=== PATIENT | female | born 1960 | race Caucasian/White ===

== ENCOUNTER 2020-08-16 13:43 | Outpatient (REF) | payer OTHER, SELFPAY | END 2020-08-16 13:44 | disposition home or self-care (01) | LOC: HO.LAB 13:43 | PROVIDERS: PCP Internal Medicine; Visit Provider Internal Medicine | DX: N83.209 Unspecified ovarian cyst, unspecified side (principal); G43.909 Migraine, unspecified, not intractable, without status migrainosus; G81.91 Hemiplegia, unspecified affecting right dominant side; M81.0 Age-related osteoporosis without current pathological fracture | CPT/HCPCS: 36415; 86304 ==

== ENCOUNTER 2020-09-11 15:03 | Outpatient (REF) | payer OTHER, SELFPAY ==
[2020-09-11 15:23] LABS: COVID-19 Test Negative (Negative)
== END 2020-09-11 15:04 | disposition home or self-care (01) ==
LOC: HO.EMPCOV 15:03
PROVIDERS: PCP Internal Medicine; Visit Provider Internal Medicine
DX: Z20.828 Contact with and (suspected) exposure to other viral communicable diseases (principal)
CPT/HCPCS: 87635; C9803

== ENCOUNTER 2020-09-14 12:49 | Outpatient (REF) | payer OTHER, SELFPAY ==
--- NOTE | 2020-09-14 12:57 | MM_ITS ---
EXAMINATION: BONE DENSITOMETRY CLINICAL INDICATION: Osteoporosis. COMPARISON: Baseline BD dated 10/17/2015. TECHNIQUE: Using a [employer] DXA System (software version: 13.1) manufactured by [employer], dual-energy x-ray absorptiometry was performed of the lumbar spine and left hip. The images are of good technical quality. Summary results are attached. FINDINGS: AP SPINE L1-L4: Current: BMD 0.861 g/cm2, Z-score -1.2, T-score -2.7, osteoporosis, 2.7% decrease from baseline (<5% change is not significant). Baseline: BMD 0.885 g/cm2. LEFT FEMUR, NECK: Current: BMD 0.704 g/cm2, Z-score -1.0, T-score -2.4, osteopenia. Baseline: BMD 0.717 g/cm2. LEFT FEMUR, TOTAL: Current: BMD 0.756 g/cm2, Z-score -0.9, T-score -2.0, osteopenia, 2.5% decrease from baseline (<5% change is not significant). Baseline: BMD 0.775 g/cm2. IDENTIFIED RISK FACTORS: Early menopause, family history (parent hip fracture), hysterectomy, left oophorectomy, secondary osteoporosis. HISTORY OF FRACTURE: None listed. MEDICATIONS: Calcium. MM/XR DEXA axial skeleton IMPRESSION: 1. DIAGNOSIS: Osteoporosis based on the lowest T-score value of -2.7 in the lumbar spine applying World Health Organization criteria. 2. 10-YEAR FRACTURE RISK PREDICTION, FRAX: Major osteoporotic fracture (clinical spine, forearm, hip or shoulder) 10.8%. Hip fracture 1.1%. 3. Treatment Recommendations: NOF guidelines recommend consideration for treatment in postmenopausal women and men age 50 and older presenting with the following: -A hip or vertebral (clinical or morphometric) fracture. -T-score less than or equal to -2.5 at the femoral neck or spine after appropriate evaluation to exclude secondary causes. -Low bone mass at the hip or spine and a 10-year fracture probability by FRAX of greater than or equal to 3% for hip fracture or greater than or equal to 20% for major osteoporotic fracture based on the [place] adapted WHO algorithm. 4. Other Recommendations: All treatment decisions require clinical judgment and consideration of individual patient factors, including patient preferences, comorbidities, previous drug use, risk factors not captured in the FRAX model (e.g. frailty, falls, vitamin D deficiency, increased bone turnover, interval significant decline in bone density) and possible under or overestimation of fracture risk by FRAX. Additional medical evaluation for secondary cause of low bone mineral density may be appropriate. FUTURE SCAN RECOMMENDATION: People with diagnosed cases of osteoporosis or at high risk for fracture should have regular bone mineral density tests. For patients eligible for Medicare, routine testing is allowed once every 2 years. The testing frequency can be increased to one year for patients who have rapidly progressing disease, those who are receiving or discontinuing medical therapy to restore bone mass, or have additional risk factors.
== END 2020-09-14 12:50 | disposition home or self-care (01) ==
LOC: HO.MAMMO 12:49
PROVIDERS: PCP Internal Medicine; Visit Provider Internal Medicine
DX: M81.0 Age-related osteoporosis without current pathological fracture (principal)
CPT/HCPCS: 77080

== ENCOUNTER 2020-09-18 11:12 | Outpatient (REF) | payer OTHER, SELFPAY ==
[2020-09-18 11:26] LABS: COVID-19 Test Negative (Negative)
== END 2020-09-18 11:13 | disposition home or self-care (01) ==
LOC: HO.EMPCOV 11:12
PROVIDERS: Visit Provider Internal Medicine
DX: Z20.828 Contact with and (suspected) exposure to other viral communicable diseases (principal)
CPT/HCPCS: 36415; 87635; C9803

== ENCOUNTER 2020-09-26 06:43 | Outpatient (REF) | payer OTHER, SELFPAY ==
[2020-09-26 07:12] LABS: COVID-19 Test Negative (Negative); IDNOW Serial# 55D5AD1C
== END 2020-09-26 06:44 | disposition home or self-care (01) ==
LOC: HO.EMPCOV 06:43
PROVIDERS: Visit Provider Internal Medicine
DX: Z20.822 Contact with and (suspected) exposure to COVID-19 (principal)
CPT/HCPCS: 36415; 87635; C9803

== ENCOUNTER 2020-09-30 09:45 | Outpatient (REF) | payer OTHER, SELFPAY | END 2020-09-30 09:46 | disposition home or self-care (01) | LOC: HO.LAB 09:45 | PROVIDERS: PCP Internal Medicine; Visit Provider Internal Medicine | DX: Z20.822 Contact with and (suspected) exposure to COVID-19 (principal) | CPT/HCPCS: 36415; C9803; U0003 ==

== ENCOUNTER 2020-11-07 07:33 | Outpatient (REF) | payer OTHER, SELFPAY ==
[2020-11-07 07:53] LABS: COVID-19 Test Negative (Negative)
== END 2020-11-07 07:34 | disposition home or self-care (01) ==
LOC: HO.EMPCOV 07:33
PROVIDERS: Visit Provider Internal Medicine
DX: Z20.822 Contact with and (suspected) exposure to COVID-19 (principal)
CPT/HCPCS: 36415; 87635; C9803

== ENCOUNTER 2020-11-15 08:16 | Outpatient (REF) | payer OTHER, SELFPAY ==
[2020-11-15 08:34] LABS: COVID-19 Test Negative (Negative); IDNOW Serial# 55D5AD1C
== END 2020-11-15 08:17 | disposition home or self-care (01) ==
LOC: HO.EMPCOV 08:16
PROVIDERS: Visit Provider Internal Medicine
DX: Z20.822 Contact with and (suspected) exposure to COVID-19 (principal)
CPT/HCPCS: 36415; 87635; C9803

== ENCOUNTER → 2020-11-21 08:42 | Outpatient (BNVA) | payer OTHER, SELFPAY | PROVIDERS: PCP Internal Medicine; Visit Provider Physician Assistant ==

== ENCOUNTER 2020-11-21 13:16 | Outpatient (REF) | payer OTHER, SELFPAY ==
[2020-11-21 13:34] LABS: COVID-19 Test Negative (Negative)
== END 2020-11-21 13:17 | disposition home or self-care (01) ==
LOC: HO.LAB 13:16
PROVIDERS: Visit Provider Internal Medicine
DX: Z11.52 Encounter for screening for COVID-19 (principal)
CPT/HCPCS: 36415; 87635; C9803

== ENCOUNTER 2021-03-28 12:41 | Outpatient (REF) | payer OTHER, SELFPAY ==
--- NOTE | ~2021-03-28 | US_ITS ---
EXAMINATION: US PELVIS AND TRANSVAGINAL CLINICAL INFORMATION: Persistent ovarian cyst. COMPARISON: Pelvic ultrasound dated 09/22/2018 TECHNIQUE: Transabdominal and transvaginal imaging was obtained. Hysterectomy and oophorectomy. FINDINGS: Status post hysterectomy. Right ovary measuring approximately 5.2 x 2.2 x 2.6 cm for a volume of 15.4 mL. Right adnexal cysts again noted now measuring 4.8 x 2.2 x 2.3 cm (previously 2.8 x 2.0 x 3.2 cm), and 1.5 x 1.2 x 1.5 cm (previously 1.2 x 1.1 x 1.1 cm). Probable ovarian tissue seen on the current examination was not noted on the prior examination. No additional pelvic mass or fluid collection. US/US pelvic and transvaginal IMPRESSION: Right adnexal cysts measuring up to 4.8 and 1.5 cm (previously 3.2 and 1.2 cm). On the current examination, there appears to be right ovarian tissue which was not seen on the prior examination. Status post hysterectomy.
== END 2021-03-28 12:42 | disposition home or self-care (01) ==
LOC: HO.HMGCX 12:41
PROVIDERS: PCP Internal Medicine; Visit Provider Obstetrics & Gynecology Gynecologic Oncology
DX: N83.209 Unspecified ovarian cyst, unspecified side (principal)
CPT/HCPCS: 76830; 76856

== ENCOUNTER 2021-04-03 10:23 | Outpatient (REF) | payer OTHER, SELFPAY ==
--- NOTE | ~2021-04-03 | XR_ITS ---
EXAMINATION: XR LUMBOSACRAL SPINE CLINICAL INFORMATION: Degenerative disc disease. COMPARISON: Lumbar spine MRI dated 11/22/2016. TECHNIQUE: Three views of the lumbosacral spine. FINDINGS: Mild levocurvature of the lumbar spine. The lumbar lordosis is maintained. No acute fracture or subluxation. No loss of vertebral body height. Multilevel loss of intervertebral disc height with anterior endplate osteophytes, progressed when compared to the prior examination. XR/XR lumbar spine 2-3V IMPRESSION: Levocurvature of the lumbar spine. Mild to moderate multilevel degenerative disc disease, progressed when compared to the prior MRI.
== END 2021-04-03 10:24 | disposition home or self-care (01) ==
LOC: HO.XRAY 10:23
PROVIDERS: PCP Internal Medicine; Visit Provider Physical Medicine & Rehabilitation
DX: M51.36 Other intervertebral disc degeneration, lumbar region (principal)
CPT/HCPCS: 72100

== ENCOUNTER 2021-05-22 18:43 | Outpatient (REF) | payer OTHER, SELFPAY ==
--- NOTE | ~2021-05-22 | MR_ITS ---
EXAMINATION: MR LUMBAR SPINE WITHOUT CONTRAST CLINICAL INFORMATION: Evaluate for disc herniation. COMPARISON: Plain films of the lumbar spine 04/03/2021. MRI scan of the lumbar spine 11/22/2016. TECHNIQUE: MRI of the lumbar spine was obtained using routine sequences without contrast. FINDINGS: VERTEBRAL BODIES AND PARASPINAL STRUCTURES: The study redemonstrates a levoscoliosis. There is mild hyperlordosis. There is a mild retrolisthesis of L1-L2. There is narrowing of intervertebral disc height with loss of signal from the discs throughout the lumbar spine, relatively sparing L4-L5. There are multilevel degenerative endplate contour changes. There are fatty endplate signal changes at L5-S1. A minimal amount of edematous endplate signal is seen at T12-L1 and toward the right at L1-L2. Vertebral body heights are maintained. There are no acute fractures. Overall, marrow signal is homogenous. The visualized retroperitoneal and pelvic structures are unremarkable. CONUS MEDULLARIS AND CAUDA EQUINA: Normal, terminating at the level of L1. The lower thoracic spinal cord appears normal. The cauda equina nerve roots and filum terminale appear normal . SPINAL LEVELS: L1-L2: There is mild bilateral facet arthropathy. There is a diffuse disc bulge with a small left-sided disc protrusion. There is no significant mass effect on the thecal sac and there is no central stenosis. The neural foramina are patent. L2-L3: There is mild bilateral facet arthropathy. There is a posterior disc protrusion which is most prominent to the left of midline and there is mild narrowing of the left subarticular recess. On the right, the disc extends into the right neural foramen without definite exiting nerve root impingement. There is no central stenosis. L3-L4: There is mild bilateral facet arthropathy. There is a posterior disc protrusion with minimal flattening of the ventral thecal sac. There is no central stenosis and the neural foramina are patent bilaterally. L4-L5: There is mild to moderate bilateral facet arthropathy. There is a small annular fissure of the disc in the right neural foramen but there is no exiting nerve root impingement. There is no central stenosis. L5-S1: There is mild bilateral facet arthropathy. There is a posterior disc protrusion which extends into the neural foramina bilaterally with impingement on the exiting L5 nerve roots. There is no stenosis. MR/MR lumbar spine wo con IMPRESSION: 1. There is a levoscoliosis, and there is a mild retrolisthesis of L1 on L2. 2. At L5-S1 there is facet arthropathy with a posterior disc protrusion extending into the neural foramina bilaterally with impingement on the exiting L5 nerve roots. There is no central stenosis. 3. At L2-L3. Arthropathy. Posterior disc protrusion, most prominent to the left of midline with mild narrowing of the left subarticular recess. There is no exiting nerve root impingement or central stenosis. 4. Spondylosis and facet arthropathic changes are also demonstrated at other levels as described above.
== END 2021-05-22 18:44 | disposition home or self-care (01) ==
LOC: HO.MRI 18:43
PROVIDERS: PCP Internal Medicine; Visit Provider Physical Medicine & Rehabilitation
DX: M47.816 Spondylosis without myelopathy or radiculopathy, lumbar region (principal)
CPT/HCPCS: 72148

== ENCOUNTER 2021-06-30 09:49 | Outpatient (REF) | payer OTHER, SELFPAY ==
--- NOTE | ~2021-06-30 | MM_ITS ---
EXAMINATION: MM SCREENING DIGITAL BREAST TOMOSYNTHESIS, BILATERAL CLINICAL INFORMATION: Screening. Asymptomatic. The lifetime risk of breast cancer based on the Tyrer-Cuzick Model is 12%. COMPARISON: Mammography: 08/08/2018, outside mammography 05/31/2017, 05/18/2016 ([facility]). TECHNIQUE: Digital breast tomosynthesis is performed in both the craniocaudal and mediolateral oblique views along with computer-aided detection (CAD). Synthesized 2D images are generated from the tomosynthesis. FINDINGS: The breasts are heterogeneously dense, which may obscure small masses (ACR BI-RADS breast composition Category c). There are no significant masses, abnormal calcifications, or other abnormalities. Scattered bilateral asymmetries are stable. There is no developing density or interval architectural abnormality. The axilla and skin contours are unremarkable. No significant changes. MM/MM tomosynthesis screening BI IMPRESSION: No mammographic evidence of malignancy. ASSESSMENT: BI-RADS 2: Benign RECOMMENDATION: Routine annual mammography screening. This patient's information was entered into a reminder system with a target due date for their next mammogram.
== END 2021-06-30 09:50 | disposition home or self-care (01) ==
LOC: HO.MAMMO 09:49
PROVIDERS: PCP Internal Medicine; Visit Provider Internal Medicine
DX: Z12.31 Encounter for screening mammogram for malignant neoplasm of breast (principal)
CPT/HCPCS: 77063; 77067

== ENCOUNTER 2021-09-19 19:28 | Outpatient (REF) | payer OTHER, SELFPAY ==
--- NOTE | ~2021-09-19 | MR_ITS ---
EXAMINATION: MR CERVICAL SPINE WITHOUT CONTRAST CLINICAL INFORMATION: Cervicalgia. COMPARISON: Plain films of the cervical spine 03/01/2016. TECHNIQUE: MRI of the cervical spine was obtained using routine sequences without contrast. FINDINGS: VERTEBRAL BODIES AND PARASPINAL SOFT TISSUES: There is straightening of the normal cervical lordosis. There are sequelae of ACDF procedures at C4-C5 and C5-C6 with hardware; the configuration appears similar compared to prior imaging. There is narrowing of intervertebral disc height at C6-C7, and there are mild edematous endplate signal changes at C6-C7 and C7-T1. Vertebral body heights are maintained and no fractures are demonstrated. Overall, marrow signal is homogenous. The visualized regional soft tissues and upper lung san are unremarkable. CERVICOMEDULLARY JUNCTION AND VISUALIZED POSTERIOR FOSSA: The craniocervical and posterior fossa structures are normal. Accounting for artifact, spinal cord signal appears normal. SPINAL LEVELS: C2-C3: The facet joints appear normal. There is a small soft disc protrusion in the midline posteriorly with distortion of the ventral thecal sac but there is no spinal cord compression or central stenosis. The neural foramina are patent bilaterally. C3-C4: There is moderate left and mild right facet arthropathy. There is a broad-based posterior disc protrusion which effaces CSF ventral to the spinal cord with mild flattening of the cord. There is mild central stenosis. There are uncovertebral osteophytes bilaterally and there is severe bilateral foraminal narrowing. C4-C5: There is mild right facet arthropathy. There is a posterior disc osteophyte complex which distorts the ventral thecal sac as well as the ventral spinal cord. There is moderate central stenosis. There are uncovertebral osteophytes and there is severe bilateral foraminal narrowing. C5-C6: There is mild bilateral facet arthropathy. There is a central and right-sided osteophytic ridge which flattens the ventral thecal sac and spinal cord on the right. There is moderate central stenosis. There are uncovertebral osteophytes, and there is severe right and moderate to severe left foraminal narrowing. C6-C7: The facet joints appear normal. There is a posterior disc osteophyte complex which is more prominent on the left with effacement of CSF around the spinal cord. There is no spinal cord compression. There is mild central stenosis. There are uncovertebral osteophytes and there is severe right and moderate left foraminal narrowing. C7-T1: There is mild bilateral facet arthropathy. There is a posterior and left-sided disc protrusion with minimal effacement of CSF ventral to the spinal cord. There is no spinal cord compression or central stenosis. There are uncovertebral osteophytes and there is severe bilateral foraminal narrowing. MR/MR cervical spine wo con IMPRESSION: 1. There are sequelae of ACDF procedures at C4-C5 and C5-C6. 2. At C4-C5 there is right-sided facet arthropathy. There is a posterior disc protrusion which distorts the spinal cord and there is moderate central stenosis. There is severe bilateral foraminal narrowing. 3. At C5-C6 there is a central and right-sided osteophytic ridge with flattening of the thecal sac and spinal cord. There is moderate central stenosis. There is severe right and moderate to severe left foraminal narrowing. 4. At C3-C4 there is mild activity at the cord due to a posterior disc protrusion. There is mild central stenosis. There is severe bilateral foraminal narrowing. 5. At C6-C7 there are uncovertebral osteophytes and there is severe right and moderate left foraminal narrowing. At C7-T1 there are uncovertebral osteophytes and there is severe bilateral foraminal narrowing.
== END 2021-09-19 19:29 | disposition home or self-care (01) ==
LOC: HO.MRI 19:28
PROVIDERS: Visit Provider Internal Medicine
DX: M54.2 Cervicalgia (principal)
CPT/HCPCS: 72141

== ENCOUNTER 2021-10-26 13:15 | Outpatient (REF) | payer OTHER, SELFPAY ==
[2021-10-26 15:17] LABS: Blood Urea Nitrogen 16 mg/dL (9-16); Estimated Glomerular Filt Rate > 60
== END 2021-10-26 13:16 | disposition home or self-care (01) ==
LOC: HO.LAB 13:15
PROVIDERS: PCP Internal Medicine; Visit Provider Internal Medicine
DX: K21.9 Gastro-esophageal reflux disease without esophagitis (principal)
CPT/HCPCS: 36415; 82565; 84520

== ENCOUNTER 2021-10-31 06:27 | Outpatient (REF) | payer OTHER, SELFPAY ==
--- NOTE | ~2021-10-31 | CT_ITS ---
EXAMINATION: CT ABDOMEN AND PELVIS WITH CONTRAST CLINICAL INFORMATION: Left lower quadrant pain COMPARISON: Previous CT of the abdomen and pelvis August 2018 and pelvic ultrasound March 2021 TECHNIQUE: Multidetector volumetric images were obtained from the superior aspect of the liver through the pubic symphysis following administration 85 mL of Omnipaque 350 intravenous contrast. Sagittal and coronal reformatted images were obtained on the technologist's workstation. Oral contrast: Yes This CT examination was performed using dose optimization techniques as appropriate, variously including the following: *Automated exposure control *Adjustment of mA and/or kV according to patient size (this includes techniques or standardized protocols for targeted exams where dose is matched to indication/reason for exam; i.e. extremities or head) *Use of iterative reconstruction technique DLP: 327 mGy-cm FINDINGS: LUNG BASES: There is focal bronchiectasis and atelectasis/consolidation in the right middle lobe. This is similar to August 2018 exam. The lung bases are otherwise clear. LIVER, GALLBLADDER, AND BILIARY TREE: The liver is normal in size, shape, and attenuation. No focal hepatic lesion or biliary ductal dilatation is present. The gallbladder is contracted. PANCREAS: Unremarkable. SPLEEN: Unremarkable. ADRENAL GLANDS: Unremarkable. KIDNEYS AND URETERS: The kidneys are normal in size, shape, and attenuation. No hydronephrosis, hydroureter, or calculi seen. There are small low-attenuation left renal lesions probably representing cysts. No imaging follow-up needed. BLADDER: There is a borderline cystocele. The bladder is otherwise unremarkable. GASTROINTESTINAL TRACT: There is stool throughout the colon questionable for constipation. No evidence of diverticulitis or colitis is seen. There is focal dilatation of the second portion of the duodenum no definite mass or wall thickening is seen. The small and large bowel is otherwise unremarkable. The appendix is not seen. ABDOMINAL WALL: No significant hernia is appreciated. LYMPH NODES: Normal. VASCULAR: Unremarkable. PELVIC VISCERA: The uterus appears to have been removed. No pelvic mass. OSSEOUS STRUCTURES: There are degenerative changes of the spine and hip joints. CT/CT abdomen pelvis w con IMPRESSION: Stool throughout the colon questionable for constipation. Short segment dilatation of the second portion of the duodenum. No bowel wall thickening or mass is appreciated. Follow-up upper GI could be considered. Small left renal cyst. Borderline cystocele. Fleischner guidelines were followed.
[2021-10-31] MEDS: Barium Sulfate Oral (Mocha) 450 ML ORAL.SUSP PO (08:53)
[2021-10-31] MEDS: iohexoL 350 MG/ML 100 ML INFUS..BTL IV (08:53)
[2021-10-31] MEDS: Barium Sulfate Oral (Vanilla) 450 ML ORAL.SUSP PO (08:57)
== END 2021-10-31 06:28 | disposition home or self-care (01) ==
LOC: HO.CT 06:27
PROVIDERS: Visit Provider Internal Medicine
DX: R10.32 Left lower quadrant pain (principal)
CPT/HCPCS: 74177; Q9967

== ENCOUNTER 2021-12-06 09:04 | Outpatient (REF) | payer OTHER, SELFPAY ==
--- NOTE | ~2021-12-06 | FL_ITS ---
EXAMINATION: XR FLUOROSCOPY UPPER GI WITH AIR CLINICAL INFORMATION: Gastroesophageal reflux disease without esophagitis. COMPARISON: None TECHNIQUE: Routine upper GI air-contrast study was performed in upright and lying position. FINDINGS: There is C6-C7 and C5-C6 disc fusion. Following oral administration of thick barium and effervescent granules there is normal propagation of bolus from the oral cavity through the pharynx, esophagus into stomach without any evidence of obstruction, narrowing or stricture. A prominent cricoesophageal sphincter seen on the right oblique position. On placing patient supine and prone the course, caliber and peristalsis of the stomach and the duodenum is normal. There is mild gastroesophageal reflux with a small sliding hiatal hernia. There is moderate prominence of the duodenal loops especially the second and third segments with inconsistent indentation of the third segment of duodenum. This could be secondary to a tortuous splenic vein anteriorly and abdominal aorta posteriorly compressing the third segment of the duodenum as is noted on the CT abdomen and pelvic exam 10/31/2021. FLUOROSCOPY TIME: 3.3 minutes. DOSE AREA PRODUCT: 25.722 uGy-m2 (microgray-meter squared). FL/FL upper GI w air IMPRESSION: Transient inconsistent narrowing seen of third segment of duodenum. This is most likely due to a tortuous splenic vein anteriorly and a normal abdominal aorta posteriorly sandwiching the third segment of the duodenum. This is best visualized CT abdomen/pelvis exam 10/31/2021. Rest of the upper GI exam is unremarkable.
== END 2021-12-06 09:05 | disposition home or self-care (01) ==
LOC: HO.XRAY 09:04
PROVIDERS: Visit Provider Internal Medicine
DX: K21.9 Gastro-esophageal reflux disease without esophagitis (principal)
CPT/HCPCS: 74246

== ENCOUNTER 2022-03-06 15:52 | Outpatient (REF) | payer OTHER, SELFPAY ==
--- NOTE | ~2022-03-06 | XR_ITS ---
EXAMINATION: XR CERVICAL SPINE CLINICAL INFORMATION: Cervicalgia COMPARISON: MRI cervical spine from 09/19/2021 TECHNIQUE: 4 views of the cervical spine were obtained. FINDINGS: Status post anterior cervical fusion of C4-C5 and C5-C6. Spinal hardware is grossly intact. No acute visible fracture or dislocation. Straightening normal cervical curvature which may be secondary to patient positioning versus muscle spasm. Multilevel degenerative changes disc space narrowing, SPECT imaging and facet arthropathy. Visualized dens is intact. Lateral masses are symmetric. Vertebral body heights and disc spaces are maintained. Prevertebral soft tissues are unremarkable. Posterior elements are intact. Paraspinal soft tissues are unremarkable. Visualized portions of the upper chest are unremarkable. XR/XR cervical spine 3V IMPRESSION: 1. Status post anterior cervical fusion of C4-C5 and C5-C6. Spinal hardware is grossly intact. 2. No acute visible fracture or dislocation. 3. Straightening normal cervical curvature which may be secondary to patient positioning versus muscle spasm. 4. Multilevel degenerative changes.
--- NOTE | ~2022-03-06 | XR_ITS ---
EXAMINATION: XR CHEST CLINICAL INFORMATION: Chronic cough COMPARISON: None TECHNIQUE: 2 views of the chest were obtained. FINDINGS: No focal consolidation. No pneumothorax. Trachea is midline. Cardiomediastinal silhouette is not enlarged. No large pleural effusion. Degenerative changes of the thoracolumbar spine. Soft tissues are unremarkable. XR/XR chest 2V IMPRESSION: No acute cardiopulmonary process.
[2022-03-06 17:26] LABS: Vitamin D 25-OH Total 35.4 ng/mL (>30)
[2022-03-06 17:33] LABS: Alanine Aminotransferase 16 U/L (0-31); Albumin Level 4.2 g/dL (3.5-5.0); Alkaline Phosphatase 75 U/L (39-117); Anion Gap 12 (12-20); Aspartate Amino Transferase 16 U/L (5-31); Bilirubin Total 0.3 mg/dL (0.0-1.0); Blood Urea Nitrogen 14 mg/dL (9-16); Carbon Dioxide 29 mmol/L (22-29); Chloride 105 mmol/L (96-108); Cholesterol 244 mg/dL; Estimated Glomerular Filt Rate > 60; Glucose Fasting 95 mg/dL (60-99); HDL Cholesterol 45 mg/dL; LDL Cholesterol Calculated 150 mg/dl; Potassium 4.1 mmol/L (3.3-5.1); Sodium 142 mmol/L (135-145); Total Protein 7.2 g/dL (6.5-8.0); Triglycerides 245 mg/dL
== END 2022-03-06 15:53 | disposition home or self-care (01) ==
LOC: HO.LAB 15:52
PROVIDERS: Visit Provider Internal Medicine
DX: Z00.00 Encounter for general adult medical examination without abnormal findings (principal); M54.2 Cervicalgia; E55.9 Vitamin D deficiency, unspecified; R05.3 Chronic cough
CPT/HCPCS: 36415; 71046; 72040; 80053; 80061; 82306

== ENCOUNTER → 2022-07-04 13:19 | Outpatient (RCR) | payer OTHER, SELFPAY ==
[2020-11-28 08:44] LABS: COVID-19 Test Negative (Negative); IDNOW Serial# 55D5AD1C
[2020-12-04 15:23] LABS: COVID-19 Test Negative (Negative); IDNOW Serial# 55D5AD1C
[2020-12-14 14:44] LABS: COVID-19 Test Negative (Negative)
[2020-12-20 09:43] LABS: COVID-19 Test Negative (Negative)
[2020-12-26 14:53] LABS: COVID-19 Test Negative (Negative)
[2021-01-01 11:15] LABS: COVID-19 Test Negative (Negative)
[2021-01-08 14:04] LABS: COVID-19 Test Negative (Negative); IDNOW Serial# 55D5AD1C
[2021-01-16 15:24] LABS: COVID-19 Test Negative (Negative)
[2021-01-22 15:05] LABS: COVID-19 Test Negative (Negative)
[2021-01-29 14:06] LABS: COVID-19 Test Negative (Negative); IDNOW Serial# 55D5AD1C
== END | disposition home or self-care (01) ==
LOC: HO.EMPCOV 11-28 08:24
PROVIDERS: Visit Provider Internal Medicine
DX: Z20.828 Contact with and (suspected) exposure to other viral communicable diseases (principal)
CPT/HCPCS: 36415; 87635; C9803

== ENCOUNTER 2022-07-13 08:33 | Outpatient (REF) | payer OTHER, SELFPAY ==
--- NOTE | ~2022-07-13 | MM_ITS ---
EXAMINATION: MM SCREENING DIGITAL BREAST TOMOSYNTHESIS, BILATERAL CLINICAL INFORMATION: Screening. Asymptomatic. Family history breast cancer, sister. The lifetime risk of breast cancer based on the Tyrer-Cuzick Model is 12%. COMPARISON: Mammography: 06/30/2021, 08/08/2018, 05/31/2017 TECHNIQUE: Digital breast tomosynthesis is performed in both the craniocaudal and mediolateral oblique views along with computer-aided detection (CAD). Synthesized 2D images are generated from the tomosynthesis. FINDINGS: The breasts are heterogeneously dense, which may obscure small masses (ACR BI-RADS breast composition Category c). Findings fibronodular parenchymal pattern and minor asymmetries are stable from prior studies. There is chronic smooth nodularity anterior upper outer right breast. No developing density or interval architectural abnormality. No abnormal calcifications. The axilla and skin contours are unremarkable. No significant changes. MM/MM tomosynthesis screening BI IMPRESSION: No mammographic evidence of malignancy. ASSESSMENT: BI-RADS 2: Benign RECOMMENDATION: Routine annual mammography screening. This patient's information was entered into a reminder system with a target due date for their next mammogram.
== END 2022-07-13 08:34 | disposition home or self-care (01) ==
LOC: HO.MAMMO 08:33
PROVIDERS: Visit Provider Internal Medicine
DX: Z12.31 Encounter for screening mammogram for malignant neoplasm of breast (principal)
CPT/HCPCS: 77063; 77067

== ENCOUNTER 2022-09-26 07:16 | Outpatient (REF) | payer OTHER, SELFPAY ==
[2022-09-26 08:37] LABS: Cholesterol 216 mg/dL; HDL Cholesterol 48 mg/dL; LDL Cholesterol Calculated 136 mg/dl; Triglycerides 160 mg/dL
[2022-09-26 08:57] LABS: Vitamin D 25-OH Total 30.7 ng/mL (>30)
== END 2022-09-26 07:17 | disposition home or self-care (01) ==
LOC: HO.LAB 07:16
PROVIDERS: PCP Internal Medicine; Visit Provider Internal Medicine
DX: E78.5 Hyperlipidemia, unspecified (principal); E55.9 Vitamin D deficiency, unspecified
CPT/HCPCS: 36415; 80061; 82306

== ENCOUNTER 2023-03-27 09:09 | Outpatient (AMB) | payer OTHER, SELFPAY ==
--- NOTE | 2023-03-27 09:13 | MHC.PC.OV ---
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 Accompanied by: Self / Same As Patient Allergies peanut [PEANUT] Allergy (Severe, Verified 03/27/23 09:25) RASH amitriptyline [AMITRIPTYLINE] Allergy (Unknown, Verified 03/27/23 09:25) TACHYCARDIA, palpitations, palpitations meperidine [From DEMEROL] Allergy (Unknown, Verified 03/27/23 09:25) FAINTS Penicillins [PENICILLINS] Allergy (Unknown, Verified 03/27/23 09:25) UNK Medication List - Last Reconciled 03/27/23 by Deborah Mclain MD cholecalciferol (vitamin D3) 50 mcg PO DAILY ibuprofen 800 mg PO TID meclizine 25 mg PO DAILY PRN 30 days omeprazole 20 mg PO DAILY sumatriptan succinate 50 mg PO Q2-4H PRN 30 days tramadol 50 mg PO BID PRN 30 days Tobacco use date assessed: 09/25/22 Dental Screening Dental Screen Date: 03/27/23 Did you have a dental visit in the last 12 months?: No Did you have a dental problem in the last 6 months where you did not have access to dental care?: No Was dental information given to patient?: Patient has dentist HPI HPI Comments History of Present Illness Details This is a 62-year-old female that comes for her physical exam. Last mammogram was June 2022 and was normal. No need for Pap smears due to hysterectomy for benign reasons. Last colonoscopy was 2017. Complains of abdominal pain associated with food. Also has low back pain that makes her not able to work. No chest pain or shortness of breath. Last bone density was 2019 and this will be repeated. [facility] Medical History Back pain Chronic constipation GERD (gastroesophageal reflux disease) Left flank pain Left lower quadrant abdominal pain Migraines Neck pain Osteoarthritis Osteoporosis Rectal bleeding Stenosis of cervical spine region Vertigo Surgical History History of appendectomy History of tubal ligation Hx of colonoscopy Hx of discectomy Hx of esophagogastroduodenoscopy S/P TAQUERIA-BSO Family History Father Diabetes CVD (cardiovascular disease) Stroke Mother CVD (cardiovascular disease) Hypertension Cervical cancer Lung cancer Maternal Aunt Cancer Maternal Uncle Cancer Sister Breast cancer Social History Household Members: Spouse Housing: House Are you a primary youth care specialist to a significant other at home: No Do you presently have visiting nurse or other home services: No Alcohol intake: never Patient Tobacco Use Status: Never used Tobacco e-Cigarette/Vaping Use: Never Used Second Hand Smoke Exposure: Yes service: No Current occupational status: unemployed Current occupation: Phelebotomist Cognitive needs: No Hearing needs: No Vision needs: Yes Questionnaire Thrive Questionnaire Date Thrive assessed: 09/25/22 DIMITRY-7 AMB Questionnaire DIMITRY-7 Date DIMITRY - 7 assessed: 09/25/22 Source: Developed by Drs. Anton Ivy, Hodan Elizalde, Enrico Souza and colleagues, with an educational renae from [id number]. Review of Systems Const All systems reviewed & are unremarkable except as noted in HPI and below Eyes Reports no additional complaints, Denies change in vision and Denies other visual disturbances Card Denies chest pain at rest, Denies chest pain with activity, Denies edema, Denies irregular heart rhythm, Denies claudication, Denies dyspnea, Denies dyspnea on exertion, Denies orthopnea, Denies paroxysmal nocturnal dyspnea and Denies slow heart rate Resp Denies cough, Denies dyspnea and Denies dyspnea on exertion GI Denies abdominal pain, Denies change in bowel habits, Denies excessive flatus, Denies nausea and Denies vomiting Denies urinary incontinence, Denies urinary hesitancy and Denies urinary urgency Musc Denies abnormal gait, Denies atrophy, Denies deformity and Denies limited range of motion Skin/Breast Denies bleeding lesions, Denies changing lesions and Denies rash Neuro Denies abnormal gait and Denies lack of coordination Physical exam (Primary Care) Vital Signs: Last Vital Signs BP 118/76 03/27/23 09:14 BMI result Body Mass Index 20.8 Tobacco/Smoking Status: Tobacco use Status Tobacco use date assessed 09/25/22 03/27/23 09:18 Patient Tobacco Use Status Never used Tobacco 03/27/23 09:18 e-Cigarette/Vaping Use Never Used 03/27/23 09:18 Thrive Assessment: Date of Thrive Assessment Date Thrive assessed 09/25/22 03/27/23 09:18 Const Orientation/consciousness: patient oriented x3 HENMT Head: Yes normal to inspection, Yes normocephalic and Yes atraumatic Ears: external ears normal Eyes General: appearance normal, both eyes and all related structures Eyelids: Yes eyelids normal Conjunctivae: conjunctivae normal Neck Neck: Yes normal visual inspection and Yes supple Resp Effort & Inspection: normal respiratory effort Auscultation: clear to auscultation bilaterally Cardio Jugular venous distension: no JVD Rate: regular rate Rhythm: regular rhythm Heart sounds: S1 normal heart sound present and S2 normal heart sound present GI Inspection: Yes normal to inspection Palpation (GI): Soft to palpation and nontender Auscultation: normal bowel sounds Skin General skin exam: no rashes or lesions noted Neuro General: patient oriented x3 and no focal motor deficits Extrem General: Yes full ROM Psych Appearance: grossly normal Assessment and Plan Assessment & Plan (1) Physical exam: Code(s): Z00.00 - Encounter for general adult medical examination without abnormal findings Plan: Repeat in a year. Orders: Orders Comprehensive Homer. Panel Fast Today M54.2 - Cervicalgia Lipid Panel Today E78.5 - Hyperlipidemia, unspecified Vitamin D 25-OH Total Today E55.9 - Vitamin D deficiency, unspecified XR DEXA axial skeleton Today N95.9 - Unspecified menopausal and perimenopausal disorder Referrals Gastroenterology Referral R10.9 - Unspecified abdominal pain Coding Level of Care Code Est Pt Prev Care 40-64y(86122) Diagnoses Physical exam Z00.00 Time Spent (min) 31
[2023-03-27 09:14] VITALS: BP 118/76; BMI 20.8
== END 2023-03-27 09:38 | disposition home or self-care (01) ==
PROVIDERS: PCP Internal Medicine; Visit Provider Internal Medicine
DX: Z00.00 Encounter for general adult medical examination without abnormal findings (principal)
CPT/HCPCS: 99396

== ENCOUNTER 2023-03-27 09:44 | Outpatient (REF) | payer OTHER, SELFPAY ==
[2023-03-27 12:26] LABS: Alanine Aminotransferase 13 U/L (0-31); Albumin Level 4.2 g/dL (3.5-5.0); Alkaline Phosphatase 109 U/L (39-117); Anion Gap 12 (12-20); Aspartate Amino Transferase 17 U/L (5-31); Bilirubin Total 0.8 mg/dL (0.0-1.0); Blood Urea Nitrogen 13 mg/dL (9-16); Calcium 9.9 mg/dL (8.4-10.2); Carbon Dioxide 29 mmol/L (22-29); Chloride 106 mmol/L (96-108); Cholesterol 193 mg/dL; Estimated Glomerular Filt Rate > 60; Glucose Fasting 88 mg/dL (60-99); HDL Cholesterol 49 mg/dL; LDL Cholesterol Calculated 120 mg/dl; Potassium 4.1 mmol/L (3.3-5.1); Sodium 143 mmol/L (135-145); Total Protein 7.1 g/dL (6.5-8.0); Triglycerides 124 mg/dL
[2023-03-27 12:41] LABS: Vitamin D 25-OH Total 38.2 ng/mL (>30)
== END 2023-03-27 09:45 | disposition home or self-care (01) ==
LOC: HO.LAB 09:44
PROVIDERS: PCP Internal Medicine; Visit Provider Internal Medicine
DX: M54.2 Cervicalgia (principal); E78.5 Hyperlipidemia, unspecified; E55.9 Vitamin D deficiency, unspecified
CPT/HCPCS: 36415; 80053; 80061; 82306

== ENCOUNTER 2023-04-22 09:24 | Outpatient (REF) | payer OTHER, SELFPAY ==
--- NOTE | ~2023-04-22 | MM_ITS ---
EXAMINATION: BONE DENSITOMETRY CLINICAL INDICATION: Unspecified menopausal and perimenopausal disorder. COMPARISON: Previous BD dated 09/14/2020 and baseline BD dated 10/17/2015. TECHNIQUE: Using a Gastrofy DXA System (software version: 13.1) manufactured by [employer], dual-energy x-ray absorptiometry was performed of the lumbar spine and left hip. The images are of good technical quality. Summary results are attached. FINDINGS: LEFT FEMUR, NECK: Current: BMD 0.671 g/cm2, Z-score -1.1, T-score -2.6, osteoporosis. Prior: BMD 0.704 g/cm2. Baseline: BMD 0.717 g/cm2. LEFT FEMUR, TOTAL: Current: BMD 0.706 g/cm2, Z-score -1.1, T-score -2.4, osteopenia, 6.6% decrease from previous, 8.9% decrease from baseline (<5% change is not significant). Prior: BMD 0.756 g/cm2. Baseline: BMD 0.775 g/cm2. AP SPINE L1-L4: Current: BMD 0.942 g/cm2, Z-score -0.2, T-score -2.0, osteopenia, 9.4% increase from previous, 6.4% increase from baseline (<5% change is not significant). Prior: BMD 0.861 g/cm2. Baseline: BMD 0.885 g/cm2. IDENTIFIED RISK FACTORS: Early menopause, secondary osteoporosis, hysterectomy, bilateral oophorectomy, family history (parental hip fracture), osteoporosis. HISTORY OF FRACTURE: None listed. MEDICATIONS: Multivitamin. MM/XR DEXA axial skeleton IMPRESSION: 1. DIAGNOSIS: Osteoporosis based on the lowest T-score value of -2.6 in the femoral neck applying World Health Organization criteria. 2. 10-YEAR FRACTURE RISK PREDICTION, FRAX: According to the guidelines, FRAX calculation should only be performed on patients in the osteopenia bone density category. Therefore, FRAX was not performed on this patient. 3. Treatment Recommendations: NOF guidelines recommend consideration for treatment in postmenopausal women and men age 50 and older presenting with the following: -A hip or vertebral (clinical or morphometric) fracture. -T-score less than or equal to -2.5 at the femoral neck or spine after appropriate evaluation to exclude secondary causes. -Low bone mass at the hip or spine and a 10-year fracture probability by FRAX of greater than or equal to 3% for hip fracture or greater than or equal to 20% for major osteoporotic fracture based on the [place] adapted WHO algorithm. 4. Other Recommendations: All treatment decisions require clinical judgment and consideration of individual patient factors, including patient preferences, comorbidities, previous drug use, risk factors not captured in the FRAX model (e.g. frailty, falls, vitamin D deficiency, increased bone turnover, interval significant decline in bone density) and possible under or overestimation of fracture risk by FRAX. Additional medical evaluation for secondary cause of low bone mineral density may be appropriate. FUTURE SCAN RECOMMENDATION: People with diagnosed cases of osteoporosis or at high risk for fracture should have regular bone mineral density tests. For patients eligible for Medicare, routine testing is allowed once every 2 years. The testing frequency can be increased to one year for patients who have rapidly progressing disease, those who are receiving or discontinuing medical therapy to restore bone mass, or have additional risk factors.
== END 2023-04-22 09:25 | disposition home or self-care (01) ==
LOC: HO.MAMMO 09:24
PROVIDERS: Visit Provider Internal Medicine
DX: Z13.820 Encounter for screening for osteoporosis (principal); Z78.0 Asymptomatic menopausal state
CPT/HCPCS: 77080

== ENCOUNTER → 2023-04-22 09:45 | Outpatient (BNV) | payer OTHER, SELFPAY | PROVIDERS: Visit Provider Radiology Diagnostic Radiology | DX: M85.89 Other specified disorders of bone density and structure, multiple sites (principal) | CPT/HCPCS: 77080 ==

== ENCOUNTER 2023-05-24 12:40 | Outpatient (REF) | payer OTHER, SELFPAY ==
--- NOTE | ~2023-05-24 | MR_ITS ---
EXAMINATION: MR LUMBAR SPINE WITHOUT CONTRAST CLINICAL INFORMATION: Evaluate for worsening stenosis. Nerve root impingement. Bilateral lower extremity radiculopathy and chronic low back pain. COMPARISON: MRI dated 05/22/2021. TECHNIQUE: Multiplanar, multisequence imaging was obtained. FINDINGS: VERTEBRAL BODIES AND PARASPINAL STRUCTURES: The marrow signal is within normal limits. There are no compression fractures. Stable mild leftward lumbar spinal curvature noted. Mild posterior subluxations with disc bulges and anterior endplate spurring are stable at the T12-L1 and L1-L2 levels. Ylqvaree-wz-orriqz loss of disc height with endplate spurring is fairly similar compared to the prior study at the L5-S1 level. The paraspinal soft tissues are normal. There are cxdw-ee-umlqhfse degenerative changes of the sacroiliac joints. CONUS MEDULLARIS AND CAUDA EQUINE: The distal cord, conus tip, and cauda equina nerve roots are normal. SPINAL LEVELS: L1-L2: Retrosubluxation and disc bulge again evident with mild facet arthropathy. No central canal stenosis. Moderate right foraminal narrowing is slightly worsened. L2-L3: Posterior disc bulge and mild facet arthropathy again evident. No central canal stenosis. Mild right foraminal narrowing without change. L3-L4: Disc bulge and hypertrophic facet arthropathy without central canal stenosis or foraminal narrowing. L4-L5: Moderate facet arthropathy is stable. No disc pathology. No central canal stenosis. Mild left foraminal narrowing with facet spurring mildly impressing upon the exiting left L4 nerve root. L5-S1: Generalized disc bulge and endplate spurring. No central canal stenosis. Osseous spurring mildly impresses upon the exiting extraforaminal L5 nerve roots laterally, as on prior imaging. Idtr-ke-zdsuvwci bilateral foraminal narrowing, more so on the right side is stable. MR/MR lumbar spine wo con IMPRESSION: Slightly worsened moderate right foraminal narrowing at the L1-L2 level. Otherwise, relatively stable multilevel lumbar spondylosis. Osseous spurring mildly impressing upon the exiting left L4 nerve root at the L4-L5 level and the L5 nerve roots at the L5-S1 level.
== END 2023-05-24 12:41 | disposition home or self-care (01) ==
LOC: HO.MRI 12:40
PROVIDERS: Visit Provider Physical Medicine & Rehabilitation
DX: M48.061 Spinal stenosis, lumbar region without neurogenic claudication (principal)
CPT/HCPCS: 72148

== ENCOUNTER 2023-07-21 09:30 | Outpatient (REF) | payer OTHER, SELFPAY | END 2023-07-21 09:31 | disposition home or self-care (01) | LOC: HO.MAMMO 09:30 | PROVIDERS: Visit Provider Internal Medicine | DX: Z12.31 Encounter for screening mammogram for malignant neoplasm of breast (principal) | CPT/HCPCS: 77063; 77067 ==

== ENCOUNTER → 2023-07-21 10:00 | Outpatient (BNV) | payer OTHER, SELFPAY | PROVIDERS: Visit Provider Radiology Diagnostic Radiology | DX: Z12.31 Encounter for screening mammogram for malignant neoplasm of breast (principal) | CPT/HCPCS: 77063; 77067 ==

== ENCOUNTER 2023-07-24 13:33 | Outpatient (AMB) | payer OTHER, SELFPAY ==
--- NOTE | 2023-07-24 13:38 | MHC.OFFVIS ---
Intake Vital Signs 07/24/23 13:39 Height 5 ft 2 in Weight 116 lb BMI 21.2 BP 108/66 Blood Pressure Location Rt brachial Position Sitting Pulse 101 H Intake Visit Reasons: Hemorrhoids Intake Note: This patient presents for an assessment for hemorrhoids. Patient c/o; reports rectal bleeding, reports constipation. 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 Accompanied by: Self / Same As Patient Allergies peanut [PEANUT] Allergy (Severe, Verified 03/27/23 09:25) RASH amitriptyline [AMITRIPTYLINE] Allergy (Unknown, Verified 03/27/23 09:25) TACHYCARDIA, palpitations, palpitations meperidine [From DEMEROL] Allergy (Unknown, Verified 03/27/23 09:25) FAINTS Penicillins [PENICILLINS] Allergy (Unknown, Verified 03/27/23 09:25) UNK Medication List - Last Reconciled 07/24/23 by Dony Montenegro MD cholecalciferol (vitamin D3) 50 mcg PO DAILY ibuprofen 800 mg PO TID ibuprofen-acetaminophen 125-250 mg (Advil Dual Action) 1 tab PO Q8H PRN meclizine 25 mg PO DAILY PRN 30 days omeprazole 20 mg PO DAILY sumatriptan succinate 50 mg PO Q2-4H PRN 30 days tramadol 50 mg PO BID PRN 30 days HPI Hemorrhoids HPI Details 63-year-old female referred for hemorrhoids. She says that for the past 2-3 months she would notice periodic bleeding and some swelling of her hemorrhoids. This would occasional prolapse with bowel movements although this is not frequent . She says these episodes are not that frequent. She denies being constipated. She has never had any anal surgery before. She was concerned about a neoplastic process in the anus so she wanted to be checked. She says that she is up-to-date with her colonoscopies. [facility] Medical History (Updated 07/24/23 @ 14:08 by Dony Montenegro MD) Bleeding hemorrhoids Stenosis of cervical spine region Left lower quadrant abdominal pain Left flank pain Neck pain GERD (gastroesophageal reflux disease) Osteoarthritis Rectal bleeding Chronic constipation Back pain Osteoporosis Vertigo Migraines Surgical History Hx of esophagogastroduodenoscopy Hx of colonoscopy Hx of discectomy S/P TAQUERIA-BSO History of tubal ligation History of appendectomy Family History Father Diabetes CVD (cardiovascular disease) Stroke Mother CVD (cardiovascular disease) Hypertension Cervical cancer Lung cancer Maternal Aunt Cancer Maternal Uncle Cancer Sister Breast cancer Social History Household Members: Spouse Housing: House Are you a primary home care giver to a significant other at home: No Do you presently have visiting nurse or other home services: No Alcohol intake: never Patient Tobacco Use Status: Never used Tobacco e-Cigarette/Vaping Use: Never Used Second Hand Smoke Exposure: Yes service: No Current occupational status: unemployed Current occupation: Phelebotomist Cognitive needs: No Hearing needs: No Vision needs: Yes Review of Systems Const Denies chills and Denies fever(s) Card Denies chest pain, Denies dyspnea and Denies dyspnea on exertion Resp Denies cough, Denies dyspnea and Denies dyspnea on exertion GI Reports hematochezia and Denies change in bowel habits Denies hematuria Musc Denies back pain and Denies limited range of motion Neuro Denies focal weakness and Denies convulsions Psych Denies depression and Denies mood swings Physical Exam Vital Signs: Last Vital Signs Pulse 101 H 07/24/23 13:39 BP 108/66 07/24/23 13:39 BMI result Body Mass Index 21.2 Const General: comfortable and no acute distress Orientation/consciousness: patient oriented x3 Neck Neck: Yes no lymphadenopathy Resp Auscultation: clear to auscultation bilaterally Cardio Rhythm: regular rhythm GI Other: Small external hemorrhoids on rectal exam; anoscopy as described Palpation (GI): Soft to palpation, nontender and no guarding Neuro General: patient oriented x3 Office Procedures Anoscopy She was in barb-knife position. The anoscope was gently inserted. A full examination of the anal canal was done. He did have small internal external hemorrhoid columns. There were no lesions. There was no abnormal mucosa. There was no fissure, ulcer or any induration. There was no palpable mass. She has good sphincter tone. There was no bleeding. [id number] Assessment & Plan Assessment & Plan (1) Bleeding hemorrhoids: Code(s): K64.9 - Unspecified hemorrhoids Plan: She has non bulky hemorrhoidal columns, internal external. She was concerned about a neoplastic process because of her bleeding periodically. Examination including anoscopy does not reveal any suggestion of any tumor or mass. She does have small internal external hemorrhoids and this can bleed periodically. She had does understand the option of hemorrhoidectomy but she says that she does not want to proceed at this time. She will follow-up in the office down the line if he has any further concerns with regards to her hemorrhoids. Coding Level of Care Code New Pt Level 3 (45969) Diagnoses Bleeding hemorrhoids K64.9 CPT Codes Details - CPT: [id number] ([id number])
[2023-07-24 13:39] VITALS: BP 108/66; PULSE 101; BMI 21.2
== END 2023-07-24 14:09 | disposition home or self-care (01) ==
PROVIDERS: PCP Internal Medicine; Visit Provider Surgery
DX: K64.9 Unspecified hemorrhoids (principal)
CPT/HCPCS: 46600; 99203

== ENCOUNTER → 2023-07-24 13:33 | Outpatient (BNVA) | payer OTHER, SELFPAY | PROVIDERS: PCP Internal Medicine; Visit Provider Surgery | DX: K64.9 Unspecified hemorrhoids (principal) | CPT/HCPCS: 46600; 99202 ==

== ENCOUNTER 2023-08-02 07:49 | Outpatient (REF) | payer OTHER, SELFPAY ==
[2023-08-05 11:29] LABS: Endomysial IgA Antibody Negative (Negative)
[2023-08-06 22:28] LABS: Gliadin Deamidated IgA Ab 2.2 U/mL; Gliadin Deamidated IgG Ab <1.0 U/mL
[2023-08-08 07:33] LABS: Transglutaminase IgA <1.0 U/mL
== END 2023-08-02 07:50 | disposition home or self-care (01) ==
LOC: HO.LAB 07:49
PROVIDERS: Internal Medicine Gastroenterology; PCP Internal Medicine; Visit Provider Internal Medicine Gastroenterology
DX: R10.9 Unspecified abdominal pain (principal); R63.4 Abnormal weight loss; R19.7 Diarrhea, unspecified
CPT/HCPCS: 36415; 86231; 86258; 86364

== ENCOUNTER 2023-08-15 08:28 | Outpatient (AMB) | payer OTHER, SELFPAY ==
--- NOTE | 2023-08-15 08:30 | A.OFFVIS_ITS ---
Intake Vital Signs 08/15/23 08:38 Height 5 ft 1.65 in Weight 115 lb 4.828 oz BMI 21.3 BP 116/72 Blood Pressure Location Rt brachial Position Sitting Pulse 84 Pulse Source Pulse Oximeter Temp 96.8 F Temp Source Skin Pulse Oximetry (%) 98 Oxygen Delivery Method Room Air Intake Visit Reasons: Osteoporosis Intake Note: New pt presents today for consult to discuss osteoporosis and back pain. Referred by PCP Dr Vaca. Back pain started many years ago. Has tried PT and cortisone injections. Follow ing with [facility], last injection approx 2 years ago. Recently saw [facility], injections were recommended again but she declined. 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 Accompanied by: Self / Same As Patient Allergies peanut [PEANUT] Allergy (Severe, Verified 08/15/23 08:41) RASH amitriptyline [AMITRIPTYLINE] Allergy (Unknown, Verified 08/15/23 08:41) TACHYCARDIA, palpitations, palpitations meperidine [From DEMEROL] Allergy (Unknown, Verified 08/15/23 08:41) FAINTS Penicillins [PENICILLINS] Allergy (Unknown, Verified 08/15/23 08:41) UNK Medication List - Last Reconciled 08/15/23 by Rakesh Granger MD cholecalciferol (vitamin D3) 50 mcg PO DAILY ibuprofen-acetaminophen 125-250 mg (Advil Dual Action) 1 tab PO Q8H PRN meclizine 25 mg PO DAILY PRN 30 days omeprazole 20 mg PO DAILY PRN pantoprazole 40 mg PO DAILY sumatriptan succinate 50 mg PO Q2-4H PRN 30 days tramadol 50 mg PO BID HPI HPI Comments History of Present Illness Details This is a 63-year-old female was referred for evaluation of osteoporosis. Patient had bilateral oophorectomy in her 40s. She states that she has had chronic back pain for years and received a few injections by [facility]. She also mentions history of intermittent acid reflux and bloating after meals. She mentions however that she had an endoscopy 2 weeks ago and it was unremarkable. [facility] Medical History Bleeding hemorrhoids Stenosis of cervical spine region Left lower quadrant abdominal pain Left flank pain Neck pain GERD (gastroesophageal reflux disease) Osteoarthritis Rectal bleeding Chronic constipation Back pain Osteoporosis Vertigo Migraines Surgical History Hx of esophagogastroduodenoscopy Hx of colonoscopy Hx of discectomy S/P TAQUERIA-BSO History of tubal ligation History of appendectomy Family History Father Diabetes CVD (cardiovascular disease) Stroke Mother CVD (cardiovascular disease) Hypertension Cervical cancer Lung cancer Maternal Aunt Cancer Maternal Uncle Cancer Sister Breast cancer Other Family history of lupus erythematosus Social History Household Members: Spouse Housing: House Are you a primary hospice patient care secretary to a significant other at home: No Do you presently have visiting nurse or other home services: No Alcohol intake: never Patient Tobacco Use Status: Never used Tobacco e-Cigarette/Vaping Use: Never Used Second Hand Smoke Exposure: Yes service: No Current occupational status: unemployed Current occupation: Phelebotomist Cognitive needs: No Hearing needs: No Vision needs: Yes Review of Systems Const Reports fatigue and Reports headache(s) Eyes Reports dry eyes and Reports loss of vision ENT Reports dizziness, Reports headache(s) and Reports tinnitus GI Reports constipation Musc Reports back pain and Reports stiffness Neuro Reports dizziness, Reports headache(s) and Reports loss of vision Psych Reports depression Endo Reports fatigue Physical Exam Vital Signs: Last Vital Signs Temp 96.8 F 08/15/23 08:38 Pulse 84 08/15/23 08:38 BP 116/72 08/15/23 08:38 Pulse Ox 98 08/15/23 08:38 Oxygen Delivery Method Room Air 08/15/23 08:38 BMI result Body Mass Index 21.3 Const General: cooperative, healthy appearing and comfortable Nutritional Appearance: average body habitus Orientation/consciousness: patient oriented x3 Limitations: no limitations HEENT Head: Yes normocephalic and Yes atraumatic Mouth: moist mucous membranes Resp Effort & Inspection: normal respiratory effort and able to speak in complete sentences Auscultation: clear to auscultation bilaterally Cardio Rate: regular rate Rhythm: regular rhythm Skin General skin exam: no rashes or lesions noted Neuro General: patient oriented x3 Extrem Other: Mild osteoarthritic changes of both hands with no active synovitis Assessment & Plan Assessment & Plan (1) Osteoporosis: Comment: DEXA 04/2023 LEFT FEMUR, NECK: T-score -2.6, LEFT FEMUR, TOTAL: T-score -2.4, osteopenia, 6.6% decrease from previous, 8.9% decrease from baseline AP SPINE L1-L4: T-score -2.0, osteopenia, 9.4% increase from previous, 6.4% increase from baseline (<5% change is not significant). Code(s): M81.0 - Age-related osteoporosis without current pathological fracture Qualifiers: Osteoporosis type: age-related Presence of current pathological fracture: without current pathological fracture Qualified Code(s): M81.0 - Age- related osteoporosis without current pathological fracture Plan: This is a 63-year-old female who presents for evaluation of osteoporosis. Most recent DEXA scan showed osteoporosis at the left femur neck. Will need to start antiresorptive therapy. Discussed risks and benefits of bisphosphonate. Patient agreed to proceed. Start alendronate 70 mg once weekly. There is reported history of GERD in the chart. Patient stated however that she had an endoscopy 2 weeks and results were unremarkable. If patient develops GI symptoms on alendronate, will switch therapy Discussed vitamin-D supplementation. Patient takes 2000 units of vitamin-D daily. Will check vitamin-D levels and replenish as needed. Discussed weight- bearing exercises Plan to repeat DEXA 2024 Follow-up in 4 months Plan I spent 47 minutes reviewing patient's chart, evaluating patient, ordering diagnostic workup, counseling patient and documenting in the chart Orders: Orders Vitamin D 25-OH (D2 and D3) Today Z13.21 - Encounter for screening for nutritional disorder Comprehensive Met. Panel Today M81.0 - Age-related osteoporosis without current pathological fracture Medications: New alendronate Take 1 tab once weekly, 1st thing in in the morning, on an empty stomach, with a large glass of water (at least 6 oz) & stay upright for 30 minutes 70 mg PO QWEEK 12 tabs 1RF Coding Level of Care Code New Pt Level 4 (52681) Diagnoses Age-related osteoporosis without current pathological fracture M81.0 Osteoporosis type: age-related Presence of current pathological fracture: without current pathological fracture
[2023-08-15 08:38] VITALS: BP 116/72; PULSE 84; TEMP 36; O2SAT 98; BMI 21.3
== END 2023-08-15 09:19 | disposition home or self-care (01) ==
PROVIDERS: PCP Internal Medicine; Visit Provider Student in an Organized Health Care Education/Training Program
DX: M81.0 Age-related osteoporosis without current pathological fracture (principal)
CPT/HCPCS: 99204

== ENCOUNTER → 2023-08-15 08:28 | Outpatient (BNVA) | payer OTHER, SELFPAY | PROVIDERS: Visit Provider Student in an Organized Health Care Education/Training Program | DX: M81.0 Age-related osteoporosis without current pathological fracture (principal) | CPT/HCPCS: 99202 ==

== ENCOUNTER 2023-09-28 16:07 | Emergency (ER) | payer OTHER, SELFPAY ==
[2023-09-28] VITALS (7 sets, daily range): BP systolic 127–160; BP diastolic 72–93; PULSE 81–98; RESP 18–80; TEMP 36.7; O2SAT 96–100; BMI 19.3
--- NOTE | ~2023-09-28 | CT_ITS ---
EXAMINATION: CT HEAD WITHOUT CONTRAST CLINICAL INFORMATION: Altered mental status/fall COMPARISON: None available. TECHNIQUE: Contiguous axial imaging was performed from the skull base to vertex without intravenous administration of contrast. This CT examination was performed using dose optimization techniques as appropriate, variously including the following: *Automated exposure control *Adjustment of mA and/or kV according to patient size (this includes techniques or standardized protocols for targeted exams where dose is matched to indication/reason for exam; i.e. extremities or head) *Use of iterative reconstruction technique DLP: 614 mGy-cm FINDINGS: There is no evidence of acute intracranial hemorrhage or territorial infarction. No abnormal mass effect or midline shift is seen. Crain to white matter differentiation is well preserved. No extra-axial fluid collections are identified. The ventricles are normal in size. There is no abnormal attenuation within the brain parenchyma. The osseous structures and soft tissues are normal. Mucoperiosteal thickening of the left maxillary sinus. The mastoid air cells and visualized portions of the paranasal sinuses are well aerated. CT/CT head/brain wo IV con IMPRESSION: No acute intracranial pathology.
--- NOTE | 2023-09-28 16:20 | ED_ITS ---
HPI - Altered Mental Status General Chief Complaint: Syncope Stated Complaint: Fall/?AMS Time Seen by Provider: 09/28/23 16:20 Source: patient Mode of arrival: ambulatory Limitations: no limitations History of Present Illness HPI narrative: Patient is 63 years old history of migraine headache and depression apparently was healthy was vaccuming at home , family member heardd the thump of falling and noticed her on the ground dazed for about 10 minutes post fall patient is slow in responding able to move her all extremities but feels extremely weak no vomiting no chest pain no palpitation never had similar episode past patient does complain of migraine headache patient is speaking slowly no seizure activity noticed no tongue bite Related Data Home Medications Medication Instructions Recorded Confirmed cholecalciferol (vitamin D3) 50 50 mcg PO DAILY 10/24/21 07/24/23 mcg (2,000 unit) capsule ibuprofen 125 mg-acetaminophen 250 1 tab PO Q8H PRN 07/24/23 07/24/23 mg tablet (Advil Dual Action) omeprazole 20 mg capsule,delayed 20 mg PO DAILY PRN 08/15/23 release pantoprazole 40 mg tablet,delayed 40 mg PO DAILY 08/15/23 release Previous Rx's Medication Instructions Recorded sumatriptan succinate 50 mg tablet 50 mg PO Q2-4H PRN migraine 05/31/22 headache 30 days #9 tabs meclizine 25 mg tablet 25 mg PO DAILY PRN dizziness 30 05/16/23 days #30 tabs alendronate 70 mg tablet 70 mg PO QWEEK #12 tabs 08/15/23 tramadol 50 mg tablet 50 mg PO BID Pain 30 days #60 tabs 09/16/23 Allergies Allergy/AdvReac Type Severity Reaction Status Date / Time peanut [PEANUT] Allergy Severe RASH Verified 08/15/23 08:41 amitriptyline [AMITRIPTYLINE] Allergy Unknown TACHYCARDIA, Verified 08/15/23 08:41 palpitations, palpitations meperidine [From DEMEROL] Allergy Unknown FAINTS Verified 08/15/23 08:41 Penicillins [PENICILLINS] Allergy Unknown UNK Verified 08/15/23 08:41 Review of Systems 2 Review of Systems: Yes all other systems are reviewed and are negative PMFSH Past Medical History Onset Date is defined in the Problem List Problems that require an onset date and time if occurred within 24 hrs of arrival to the ED Aortic Dissection and Rupture; Neurologic impairment; Cardiopulmonary Arrest; Endotracheal Intubation; Insertion or Replacement of Mechanical Circulatory Assist Device Medical History Bleeding hemorrhoids Stenosis of cervical spine region Left lower quadrant abdominal pain Left flank pain Neck pain GERD (gastroesophageal reflux disease) Osteoarthritis Rectal bleeding Chronic constipation Back pain Osteoporosis Vertigo Migraines Surgical History Hx of esophagogastroduodenoscopy Hx of colonoscopy Hx of discectomy S/P TAQUERIA-BSO History of tubal ligation History of appendectomy Family History Family History Father Diabetes CVD (cardiovascular disease) Stroke Mother CVD (cardiovascular disease) Hypertension Cervical cancer Lung cancer Maternal Aunt Cancer Maternal Uncle Cancer Sister Breast cancer Other Family history of lupus erythematosus Social History Social History Household Members: Spouse Housing: House Are you a primary campground caretaker to a significant other at home: No Do you presently have visiting nurse or other home services: No Alcohol intake: never Patient Tobacco Use Status: Never used Tobacco Smoked in Last 30 Days: No e-Cigarette/Vaping Use: Never Used Second Hand Smoke Exposure: Yes Use of substances other than those prescribed or required for medical reasons: No Advance Directives: No Advance Directives Information Provided: No service: No Current occupational status: unemployed Current occupation: Phelebotomist Cognitive needs: No Hearing needs: No Vision needs: Yes Physical Exam ED Vital Signs: Vital Signs - 24 hr 09/28/23 16:33 09/28/23 16:59 09/28/23 17:54 Temperature 98.1 F Pulse Rate 98 85 90 Respiratory Rate 18 20 80 H Blood Pressure 160/93 H 146/80 H 127/72 Pulse Oximetry 100 97 96 Oxygen Delivery Method Room Air Room Air Room Air 09/28/23 17:55 09/28/23 18:07 09/28/23 18:08 Temperature Pulse Rate 82 81 Respiratory Rate Blood Pressure 138/82 147/91 H Pulse Oximetry 96 Oxygen Delivery Method Room Air 09/28/23 18:09 Temperature Pulse Rate 96 Respiratory Rate Blood Pressure 128/89 Pulse Oximetry Oxygen Delivery Method BMI result Body Mass Index 19.3 Appearance: Alert. Oriented X3. No acute distress. Slow to respond overall weak Eyes: PERRLA, No Nystagmus ENT: Pharynx normal. Oral Mucosa moist AT NC Neck: Normal inspection. Neck supple. CVS: Normal heart rate and rhythm. Pulses normal. Respiratory: No respiratory distress. Equal air entry bilateral, no wheezing/rales/rhonchi Abdomen: Soft and nontender. Bowel sounds are present, Skin: Skin warm and dry. Normal skin color. Normal skin turgor. Extremities: No lower extremity edema. No calf tenderness Neuro: Oriented X 3. No motor deficit. No sensory deficit.No cerebellar signs , cranial nerves II-XII intact NIH Stroke Scale Internal: Initial- Upon Arrival Level of Consciousness: Alert Level of Consciousness Questions: Answers both questions correctly Level of Consciousness Commands: Performs both tasks correctly Best Gaze: Normal Visual: No visual loss Facial Palsy: Normal Motor Arm (Right): No drift Motor Arm (Left): No drift Motor Leg (Right): No drift Motor Leg (Left): No drift Limb Ataxia: Absent Sensory: Normal Best Language: No aphasia Dysarthia: Normal Extinction and Inattention: No abnormality Score: 0 Medications Administered Discontinued Medications Generic Name Dose Route Start Last Admin Trade Name Freq PRN Reason Stop Dose Admin Ketorolac Tromethamine 30 mg 09/28/23 17:05 09/28/23 17:07 Ketorolac Tromethamine 30 Mg/Ml Vial IVPUSH 09/28/23 17:06 30 mg ONCE ONE Administration Medical Decision Making Medical Decision Making [facility] Narrative: 545pm Patient with transient confusion with fall workup is negative acute during stay in the ER feels back to normal feels that she was in the dream at that time at this time patient is talking communicating no focal deficit ambulatory steady gait no family member noticed seizures clinically patient had transient global amnesia will discharge patient home normal orthostatics normal labs, CT scan of the head is negative for CVA Differential Diagnosis Differential Diagnoses: The differential diagnosis associated with the presentation includes TIA/seizure/complex migraine/absence seizure/transient global amnesia Admission/Observation Consideration of admission/observation: Escalation of care including admission/observation considered Lab Data [facility] Lab Attestation statement: I reviewed the patient's lab results. 09/28/23 17:00 09/28/23 17:00 Labs: Lab Results 09/28/23 09/28/23 09/28/23 Range/Units 16:22 17:00 17:01 WBC 11.1 H (4.8-10.8) X10*3/uL RBC 4.44 (4.20-5.50) X10*6/uL Hgb 13.6 (12.0-16.0) g/dl Hct 41.6 (37.0-47.0) % MCV 93.7 (80.0-98.0) fL MCH 30.6 (27.0-33.0) pg MCHC 32.7 (31.0-35.0) g/dl RDW 12.4 (11.0-16.0) % Plt Count 277 (160-400) X10*3/uL MPV 8.9 L (9.4-12.3) fL Immature Gran % (Auto) 0.3 (0.0-0.4) % Neut % (Auto) 51.0 (45-73) % Lymph % (Auto) 35.3 (20-40) % [place] % (Auto) 8.5 (2-11) % Eos % (Auto) 4.5 H (0-4) % Baso % (Auto) 0.4 (0-2) % Lymph # (Auto) 3.9 (1.2-4.9) X10*3/uL [place] # (Auto) 0.9 (0.1-1.2) X10*3/uL Eos # (Auto) 0.5 H (0.0-0.4) X10*3/uL Baso # (Auto) 0.0 (0.0-0.2) X10*3/uL Abs Immat Gran (auto) 0.03 (0.00-0.03) X10*3/uL Absolute Neuts (auto) 5.7 (2.0-8.3) x10*3/uL Absolute Nucleated RBC 0.000 (0.0-0.012) X10*3/uL Nucleated RBC % (auto) 0.0 (0.0-0.2) /100WBC PT 12.3 (11.1-13.3) SEC INR 1.0 (0.9-1.1) Sodium 143 (135-145) mmol/L Potassium 3.9 (3.3-5.1) mmol/L Chloride 105 (96-108) mmol/L Carbon Dioxide 27 (22-29) mmol/L Anion Gap 15 (12-20) BUN 22 H (9-16) mg/dL Creatinine 1.11 (0.5-1.4) mg/dL Estim Creat Clear Calc 40.9 Estimated GFR 50 POC Glucose 87 (60-115) mg/dL Random Glucose 94 (60-115) mg/dL Calcium 9.2 D (8.4-10.2) mg/dL Total Bilirubin 0.4 (0.0-1.0) mg/dL AST 18 (5-31) U/L ALT 14 (0-31) U/L Alkaline Phosphatase 93 (39-117) U/L Troponin I High Sens < 2.7 (<3.5-17.0) ng/L Total Protein 7.2 (6.5-8.0) g/dL Albumin 4.2 (3.5-5.0) g/dL COVID-19 (FREDY) Negative (Negative) COVID-19 Clin Com See Note Independent Interpretation I performed an independent interpretation of an: EKG and CT Scan Interpretation: Normal sinus rhythm heart rate 83 beats per minute normal interval normal axis no acute STT wave changes no acute ischemia Radiology Impression Discussion of test interpretation with radiology: I have reviewed the radiologist's reading. Discharge Plan Discharge Clinical Impression: TGA (transient global amnesia) Patient Disposition: Home, Self-Care Instructions: Transient Global Amnesia (ED) Additional Instructions: Likely her symptoms are from transient global amnesia which is not life- threatening Slowly you may likely remember your events or may never remember what happened Follow-up with neurologist Report to the ER if recurrence of similar symptoms frequently/seizures Prescriptions: No Action sumatriptan succinate 50 mg tablet 50 mg PO Q2-4H PRN (Reason: migraine headache) 30 Days Qty: 9 6RF Rx Instructions: do not exceed 4 doses per 24 hrs meclizine 25 mg tablet 25 mg PO DAILY PRN (Reason: dizziness) 30 Days Qty: 30 0RF tramadol 50 mg tablet 50 mg PO BID 30 Days Qty: 60 0RF cholecalciferol (vitamin D3) 50 mcg (2,000 unit) capsule 50 mcg PO DAILY omeprazole 20 mg capsule,delayed release(DR/EC) 20 mg PO DAILY PRN pantoprazole 40 mg tablet,delayed release (DR/EC) 40 mg PO DAILY alendronate 70 mg tablet 70 mg PO QWEEK Qty: 12 1RF Rx Instructions: Take 1 tab once weekly, 1st thing in in the morning, on an empty stomach, with a large glass of water (at least 6 oz) & stay upright for 30 minutes ibuprofen-acetaminophen [Advil Dual Action] 125-250 mg tablet 1 tab PO Q8H PRN Referrals: Live Larson MD [Physician] - 2 weeks
[2023-09-28 16:25] LABS: Glucose, Whole Blood 87 mg/dL (60-115)
--- NOTE | 2023-09-28 16:28 | ECG_ITS ---
Test Reason : SYNCOPEE Blood Pressure : / mmHG Vent. Rate : 083 BPM Atrial Rate : 083 BPM P-R Int : 134 ms QRS Dur : 072 ms QT Int : 400 ms P-R-T Axes : 066 043 048 degrees QTc Int : 470 ms Normal sinus rhythm Nonspecific ST abnormality Abnormal ECG When compared with ECG of 03-DEC-2016 10:35, No significant change was found Referred By: Osito No Electronically Signed By:MELVA CARREON
[2023-09-28 17:05] LABS: MANUAL DIFF FLAG NO
[2023-09-28] MEDS: Ketorolac Tromethamine 30 MG/ML VIAL IVPUSH (17:07)
[2023-09-28 17:10] LABS: Basophils Percent Auto 0.4 % (0-2); Eosinophils Absolute Auto 0.5 X10*3/uL (0.0-0.4); Eosinophils Percent Auto 4.5 % (0-4); Hematocrit 41.6 % (37.0-47.0); Hemoglobin 13.6 g/dl (12.0-16.0); Imm Gran Abs Auto 0.03 X10*3/uL (0.00-0.03); Imm Gran Pct Auto 0.3 % (0.0-0.4); Lymphocytes Absolute Auto 3.9 X10*3/uL (1.2-4.9); Lymphocytes Percent Auto 35.3 % (20-40); Mean Corpuscular HGB Conc 32.7 g/dl (31.0-35.0); Mean Corpuscular Hemoglobin 30.6 pg (27.0-33.0); Mean Corpuscular Volume 93.7 fL (80.0-98.0); Mean Platelet Volume 8.9 fL (9.4-12.3); Monocytes Absolute Auto 0.9 X10*3/uL (0.1-1.2); Monocytes Percent Auto 8.5 % (2-11); Neutrophils Absolute Auto 5.7 x10*3/uL (2.0-8.3); Platelet Count 277 X10*3/uL (160-400); Red Blood Count 4.44 X10*6/uL (4.20-5.50); Red Cell Distribution Width 12.4 % (11.0-16.0); White Blood Count 11.1 X10*3/uL (4.8-10.8)
[2023-09-28 17:17] LABS: Prothrombin Time 12.3 SEC (11.1-13.3)
[2023-09-28 17:18] LABS: COVID-19 Test Negative (Negative); IDNOW Serial# 6674DD1D
[2023-09-28 17:30] LABS: Alanine Aminotransferase 14 U/L (0-31); Albumin Level 4.2 g/dL (3.5-5.0); Alkaline Phosphatase 93 U/L (39-117); Anion Gap 15 (12-20); Aspartate Amino Transferase 18 U/L (5-31); Bilirubin Total 0.4 mg/dL (0.0-1.0); Blood Urea Nitrogen 22 mg/dL (9-16); Calcium 9.2 mg/dL (8.4-10.2); Carbon Dioxide 27 mmol/L (22-29); Chloride 105 mmol/L (96-108); Creatinine Clr Calc Pharmacy 40.9; Estimated Glomerular Filt Rate 50; Glucose Random 94 mg/dL (60-115); Potassium 3.9 mmol/L (3.3-5.1); Sodium 143 mmol/L (135-145); Total Protein 7.2 g/dL (6.5-8.0)
[2023-09-28 17:42] LABS: Troponin-I High Sensitivity < 2.7 ng/L (<3.5-17.0)
[2023-09-28 18:13] LABS: Appearance Urine Clear; Color Urine Yellow; Glucose Urine UA Negative (Negative); Leukocyte Esterase Urine Trace (Negative); Nitrite Urine Negative (Negative); PH 6.5 (5.0-9.0); UMIC TRIGGER UACC YES; Urine Blood Negative (Negative); Urine Ketones Negative (Negative); Urine Protein Negative (Neg-Trace)
[2023-09-28 18:18] LABS: Bacteria Urine None Seen (None Seen); Hyaline Casts Urine 0-2 /LPF (0-2); RBC Urine 0-2 /HPF (0-2); Squamous Epithelial Cell Urine 0-2 /HPF (0-2); WBC Urine 0-5 /HPF (0-5)
== END 2023-09-28 18:17 | disposition home or self-care (01) ==
PROVIDERS: Emergency Provider Internal Medicine; PCP Internal Medicine
DX: G45.4 Transient global amnesia (principal); R55 Syncope and collapse; R41.82 Altered mental status, unspecified; R94.31 Abnormal electrocardiogram [ECG] [EKG]; Z11.52 Encounter for screening for COVID-19; Z79.899 Other long term (current) drug therapy
CPT/HCPCS: 36415; 70450; 80053; 81001; 82947; 84484; 85025; 85610; 87635; 93005; 96374; 99284; 99285; J1885; J2405

== ENCOUNTER → 2023-09-28 16:28 | Outpatient (BNV) | payer OTHER, SELFPAY | PROVIDERS: Emergency Provider Internal Medicine; PCP Internal Medicine; Visit Provider Internal Medicine | DX: R55 Syncope and collapse (principal) | CPT/HCPCS: 93010 ==

== ENCOUNTER 2024-01-29 08:50 | Outpatient (AMB) | payer OTHER, SELFPAY ==
--- NOTE | 2024-01-29 09:15 | A.OFFVIS_ITS ---
Vital Signs 01/29/24 09:27 Height 5 ft 2 in BP 112/80 Blood Pressure Location Lt brachial Position Sitting Pulse 76 Pulse Source Pulse Oximeter Pulse Oximetry (%) 97 Oxygen Delivery Method Room Air Intake Visit Reasons: I-[employer]ICE [employer]NAGER: Transient global amnesia - Confirmed Intake Note: Patient presents for Transient global amnesia. Had a episode this pass September. Concerned it will happen again and would like to know why did it happened. 1 to 2 migraines a week. Allergies peanut [PEANUT] Allergy (Severe, Verified 01/29/24 09:23) RASH amitriptyline [AMITRIPTYLINE] Allergy (Unknown, Verified 01/29/24 09:23) TACHYCARDIA, palpitations, palpitations meperidine [From DEMEROL] Allergy (Unknown, Verified 01/29/24 09:23) FAINTS Penicillins [PENICILLINS] Allergy (Unknown, Verified 01/29/24 09:23) UNK Medication List - Last Reconciled 01/29/24 by Lizette Rosas MD cholecalciferol (vitamin D3) 50 mcg PO DAILY ibuprofen-acetaminophen 125-250 mg (Advil Dual Action) 1 tab PO Q8H PRN meclizine 25 mg PO DAILY PRN 30 days omeprazole 20 mg PO DAILY PRN tramadol 50 mg PO BID 30 days HPI Comments Details: 63y/o right handed female comes for neurological evaluation.About 4 months ago when she was vacuuming her house at around 4pm she passed out suddenly and her witnessed.After 10 min she woke up but felt like she was in a dream - she could hear her as if he was talking from a distance and this lasted for few hours . she was taken to ER- she was very anxious. when the nurse asked her to squeeze her hands she heard the command but could not squeeze her hands.This lasted 2-3 hrs and she was back to baseline.she does not remember if she had chest pain or palpitations.she had headaches that time and lasted 2 days Prior to this episode she had tingling in the right shoulder and neck radiating to her face for 1 week - episodically. 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 she has h/o cervical spondylosis and chronic back issues. she has long history of migraines. she used to have daily migraines but now 1-2 /week Her migraines are unitemporal with blurry vision , visual aura, nausea, light and noise sensitivity - can last the whole day [facility] Medical History (Updated 01/29/24 @ 09:49 by Lizette Rosas MD) Chronic migraine with aura Syncope and collapse Bleeding hemorrhoids Stenosis of cervical spine region Left lower quadrant abdominal pain Left flank pain Neck pain GERD (gastroesophageal reflux disease) Osteoarthritis Rectal bleeding Chronic constipation Back pain Osteoporosis Vertigo Migraines Surgical History Hx of esophagogastroduodenoscopy Hx of colonoscopy Hx of discectomy S/P TAQUERIA-BSO History of tubal ligation History of appendectomy Family History Father Diabetes CVD (cardiovascular disease) Stroke Mother CVD (cardiovascular disease) Hypertension Cervical cancer Lung cancer Maternal Aunt Cancer Maternal Uncle Cancer Sister Breast cancer Other Family history of lupus erythematosus Social History Household Members: Spouse Housing: House Are you a primary home care attendant to a significant other at home: No Do you presently have visiting nurse or other home services: No Alcohol intake: never Patient Tobacco Use Status: Never used Tobacco e-Cigarette/Vaping Use: Never Used Second Hand Smoke Exposure: Yes service: No Current occupational status: unemployed Current occupation: Phelebotomist Cognitive needs: No Hearing needs: No Vision needs: Yes Physical Exam Vital Signs: Last Vital Signs Pulse 76 01/29/24 09:27 BP 112/80 01/29/24 09:27 Pulse Ox 97 01/29/24 09:27 Oxygen Delivery Method Room Air 01/29/24 09:27 Const General: cooperative, healthy appearing, comfortable and no acute distress Nutritional Appearance: average body habitus Orientation/consciousness: patient oriented x3 Eyes Pupils: Equal, round and reactive pupils present Neuro General: patient oriented x3, gait normal, tone normal, moves all extremities and no focal motor deficits Cranial nerves: Yes Facial sensation intact/muscles of mastication intact, Yes Equal, round and reactive pupils present, Yes Bilaterally intact EOM present, Y es Nystagmus not present, Yes Normal facial strength present, Yes Midline tongue present and Yes Symmetric palate elevation present Cognition (Neuro): normal cognition Gait exam (Neuro): Normal gait present Motor exam (neuro): 5/5 motor strength present throughout Deep tendon reflexes (DTR's): Right triceps reflex intensity grade: 2+, Left triceps reflex intensity grade: 2+, Rt Biceps (C5, C6): 2+, Left biceps reflex intensity grade: 2+, Right brachioradialis reflex intensity grade: 2+, Left brachioradialis reflex intensity grade: 2+, Right patellar reflex intensity grade: 2+ and Left patellar reflex intensity grade: 2+ Coordination: [id number] test normal Results Reviewed Results Reviewed: MRI C spine 2021 \ There are sequelae of ACDF procedures at C4-C5 and C5-C6. 2. At C4-C5 there is right-sided facet arthropathy. There is a posterior disc protrusion which distorts the spinal cord and there is moderate central stenosis. There is severe bilateral foraminal narrowing. 3. At C5-C6 there is a central and right-sided osteophytic ridge with flattening of the thecal sac and spinal cord. There is moderate central stenosis. There is severe right and moderate to severe left foraminal narrowing. 4. At C3-C4 there is mild activity at the cord due to a posterior disc protrusion. There is mild central stenosis. There is severe bilateral foraminal narrowing. 5. At C6-C7 there are uncovertebral osteophytes and there is severe right and moderate left foraminal narrowing. At C7-T1 there are uncovertebral osteophytes and there is severe bilateral foraminal narrowing. Assessment & Plan Assessment & Plan (1) Syncope and collapse: Comment: ? complex migraine? complex partial seizures Code(s): R55 - Syncope and collapse Category: Medical (2) Chronic migraine with aura: Code(s): G43.E09 - Chronic migraine with aura, not intractable, without status migrainosus Category: Medical Plan I will evaluate her with MRI Brain, EEG , Carotid doppler I will trail her on topiramate 25 mg bid Consider cardiac evaluation Orders: Orders EEG electroencephalogram Today G43.E09 - Chronic migraine with aura, not intractable, without status migrainosus, R55 - Syncope and collapse US carotid duplex BI Today G43.E09 - Chronic migraine with aura, not intractable, without status migrainosus, R55 - Syncope and collapse MR head/brain wo con Today G43.E09 - Chronic migraine with aura, not intractable, without status migrainosus, R55 - Syncope and collapse Medications: New topiramate 25 mg PO BID 60 caps 6RF Coding Level of Care Code New Pt Level 4 (00914) Diagnoses Syncope and collapse R55 Chronic migraine with aura G43.E09
[2024-01-29 09:27] VITALS: BP 112/80; PULSE 76; O2SAT 97
== END 2024-01-29 09:54 | disposition home or self-care (01) ==
PROVIDERS: PCP Internal Medicine; Visit Provider Psychiatry & Neurology Neurology
DX: R55 Syncope and collapse (principal); G43.E09 Chronic migraine with aura, not intractable, without status migrainosus
CPT/HCPCS: 99204

== ENCOUNTER → 2024-01-29 08:50 | Outpatient (BNVA) | payer OTHER, SELFPAY | PROVIDERS: PCP Internal Medicine; Visit Provider Psychiatry & Neurology Neurology | DX: R55 Syncope and collapse (principal); G43.E09 Chronic migraine with aura, not intractable, without status migrainosus | CPT/HCPCS: 99202 ==

== ENCOUNTER 2024-03-02 07:08 | Outpatient (REF) | payer OTHER, SELFPAY ==
--- NOTE | ~2024-03-02 | MR_ITS ---
EXAMINATION: MR BRAIN WITHOUT CONTRAST CLINICAL INFORMATION: Syncope and collapse COMPARISON: CT head on 09/28/2023 TECHNIQUE: MRI of the brain was obtained using routine sequences without contrast. FINDINGS: No acute intracranial hemorrhage or infarct. Scattered and confluent periventricular and deep white matter T2/FLAIR hyperintensities, nonspecific however commonly seen with small vessel ischemic disease. No midline shift or hydrocephalus. No acute extra-axial fluid collections. The osseous structures are unremarkable. The pituitary gland, pineal gland and remaining midline structures are unremarkable. No orbital pathology. Mucosal thickening of the paranasal sinuses. The mastoid air cells are clear. MR/MR head/brain wo con IMPRESSION: -No acute intracranial abnormalities. -Chronic microangiopathy.
== END 2024-03-02 07:09 | disposition home or self-care (01) ==
LOC: HO.MRI 07:08
PROVIDERS: PCP Internal Medicine; Visit Provider Psychiatry & Neurology Neurology
DX: G43.E09 Chronic migraine with aura, not intractable, without status migrainosus (principal); R55 Syncope and collapse
CPT/HCPCS: 70551

== ENCOUNTER 2024-03-31 17:07 | Outpatient (AMB) | payer OTHER, SELFPAY ==
[2024-03-31 17:12] VITALS: BP 126/80; BMI 22.3
--- NOTE | 2024-03-31 17:12 | MHC.PC.OV ---
Vital Signs 03/31/24 17:12 Height 5 ft 2 in Weight 122 lb BMI 22.3 BP 126/80 Blood Pressure Location Lt brachial Position Sitting Intake Visit Reasons: Annual Exam Intake Note: Patient here for an annual physical exam An/Syq 13 Nav/C2 Operator Required: No Accompanied by: Self / Same As Patient Allergies peanut [PEANUT] Allergy (Severe, Verified 03/31/24 17:26) RASH amitriptyline [AMITRIPTYLINE] Allergy (Unknown, Verified 03/31/24 17:26) TACHYCARDIA, palpitations, palpitations meperidine [From DEMEROL] Allergy (Unknown, Verified 03/31/24 17:26) FAINTS Penicillins [PENICILLINS] Allergy (Unknown, Verified 03/31/24 17:26) UNK Medication List - Last Reconciled 03/31/24 by Deborah Mclain MD cholecalciferol (vitamin D3) 50 mcg PO DAILY ibuprofen-acetaminophen 125-250 mg (Advil Dual Action) 1 tab PO Q8H PRN meclizine 25 mg PO DAILY PRN 30 days omeprazole 20 mg PO DAILY PRN topiramate 25 mg PO BID tramadol 50 mg PO BID 30 days Tobacco use date assessed: 03/31/24 Dental Screening Dental Screen Date: 03/31/24 Did you have a dental visit in the last 12 months?: Yes Did you have a dental problem in the last 6 months where you did not have access to dental care?: No Was dental information given to patient?: Patient has dentist HPI HPI Comments History of Present Illness Details This is a 63-year-old female with mild major depression that comes for physical exam. Depression is present and she declines any treatment. Mammogram done 2022 was normal. No need for Pap smear due to hysterectomy. Last colonoscopy was 2017 with a poor prep and I will refer her through open access. Last DEXA scan was 2022 showing osteoporosis and she was prescribed alendronate but does not want to take it. She complains of left knee pain that started few months ago and after walking a few steps she started to limp. Will order x-ray and referred to Ortho. [facility] Medical History (Updated 03/31/24 @ 17:47 by Deborah Mclain MD) Chronic migraine with aura Syncope and collapse Bleeding hemorrhoids Stenosis of cervical spine region Left lower quadrant abdominal pain Left flank pain Neck pain GERD (gastroesophageal reflux disease) Osteoarthritis Rectal bleeding Chronic constipation Back pain Osteoporosis Vertigo Migraines Surgical History Hx of esophagogastroduodenoscopy Hx of colonoscopy Hx of discectomy S/P TAQUERIA-BSO History of tubal ligation History of appendectomy Family History Father Diabetes CVD (cardiovascular disease) Stroke Mother CVD (cardiovascular disease) Hypertension Cervical cancer Lung cancer Maternal Aunt Cancer Maternal Uncle Cancer Sister Breast cancer Other Family history of lupus erythematosus Social History Household Members: Spouse Housing: House Are you a primary wound care rn to a significant other at home: No Do you presently have visiting nurse or other home services: No Alcohol intake: never Patient Tobacco Use Status: Never used Tobacco e-Cigarette/Vaping Use: Never Used Second Hand Smoke Exposure: Yes service: No Current occupational status: unemployed Current occupation: Phelebotomist Cognitive needs: No Hearing needs: No Vision needs: Yes Questionnaire PHQ-9 Over the last 2 weeks, how often have you been bothered by any of the following problems? 1. Little interest or pleasure in doing things: not at all 2. Feeling down, depressed, or hopeless: more than half the days 3. Trouble falling or staying asleep, or sleeping too much: more than half the days 4. Feeling tired or having little energy: not at all 5. Poor appetite or overeating: not at all 6. Feeling bad about yourself - or that you are a failure or have let yourself or your family down: not at all 7. Trouble concentrating on things, such as reading the newspaper or watching television: not at all 8. Moving or speaking so slowly that other people could have noticed. Or the opposite - being so fidgety or restless that you have been moving around a lot more than usual: several days 9. Thoughts that you would be better off or of hurting yourself in some way: not at all Total score: 5 Depression Screening Interpretation: Positive Depression Screening Follow-up: Existing condition, Follow-up Visit Requested and Declines treatment Depression Screening Done: Yes 19307 - PHQ-9 Billing: Yes Source: Developed by Drs. Anton Ivy, Enrico Weeks and colleagues, with an educational renae from [employer]. Thrive Questionnaire Date Thrive assessed: 03/31/24 I am a: Patient What is your living situation today?: I have a steady place to live Within the past 12 months, did the food you bought not last and you didn't have the money to get more?: Never true Within the past 12 months, did you worry whether your food would run out before you got money to buy more?: Never true Do you have trouble paying for medicines?: No Do you have trouble getting transportation to medical appointments?: No Do you have trouble paying your heating and electricity bill?: No Do you have trouble taking care of your child, family member or friend?: No Do you have trouble with day-to-day activities such as bathing, preparing meals, shopping, managing finances, etc.?: No Are you currently unemployed and looking for a job?: No Are you interested in more education?: No Please select the resources that you would like help with: None Currently or been in a relationship where the following occur: No concerns reported THRIVE Score: 0 AUDIT C Alcohol Use Questionnaire (AUDIT-C) 1. How often do you have a drink containing alcohol?: Never Total Score: 0 Score Reviewed/Action Taken: No DIMITRY-7 AMB Questionnaire DIMITRY-7 Date DIMITRY - 7 assessed: 03/31/24 Feeling nervous, anxious, or on edge: 2 = More than half the days Not being able to stop or control worryin = Several days Worrying too much about different things: 2 = More than half the days Trouble relaxin = Not at all Being so restless that it is hard to sit still: 0 = Not at all Becoming easily annoyed or irritable: 1 = Several days Feeling afraid as if something awful might happen: 0 = Not at all Total DIMITRY-7 score (0-4 normal; 5-9 mild; 10-14 moderate; 15-21 severe): 6 Source: Developed by Drs. Anton Ivy, Enrico Weeks and colleagues, with an educational renae from [employer]. DIMITRY-7 Assessment Billing DIMIRTY-7 Assessment Tool: DIMITRY-7 Assessment 33943 Review of Systems Const All systems reviewed & are unremarkable except as noted in HPI and below Card Denies chest pain at rest, Denies chest pain with activity, Denies edema, Denies irregular heart rhythm, Denies claudication, Denies dyspnea, Denies dyspnea on exertion, Denies orthopnea, Denies paroxysmal nocturnal dyspnea and Denies slow heart rate Resp Denies cough, Denies dyspnea and Denies dyspnea on exertion GI Denies abdominal pain, Denies change in bowel habits, Denies excessive flatus, Denies nausea and Denies vomiting Musc Reports arthralgias Physical exam (Primary Care) Vital Signs: Last Vital Signs BP 126/80 03/31/24 17:12 BMI result Body Mass Index 22.3 Tobacco/Smoking Status: Tobacco use Status Tobacco use date assessed 03/31/24 03/31/24 17:21 Patient Tobacco Use Status Never used Tobacco 03/31/24 17:21 e-Cigarette/Vaping Use Never Used 03/31/24 17:21 PHQ-9: PHQ-9 Score PHQ-9: Total score 5 03/31/24 17:21 Depression Screening Interpretation: Positive Depression Screening Follow-up: Existing condition, Follow-up Visit Requested and Declines treatment Thrive Assessment: Date of Thrive Assessment Date Thrive assessed 03/31/24 03/31/24 17:21 Currently or been in a relationship where the following occur: No concerns reported [facility] Head: Yes normal to inspection, Yes normocephalic and Yes atraumatic Ears: external ears normal Eyes General: appearance normal, both eyes and all related structures Eyelids: Yes eyelids normal Conjunctivae: conjunctivae normal Neck Neck: Yes normal visual inspection and Yes supple Resp Effort & Inspection: normal respiratory effort Auscultation: clear to auscultation bilaterally Cardio Jugular venous distension: no JVD Rate: regular rate Rhythm: regular rhythm Heart sounds: S1 normal heart sound present and S2 normal heart sound present GI Inspection: Yes normal to inspection Palpation (GI): Soft to palpation and nontender Auscultation: normal bowel sounds Skin General skin exam: no rashes or lesions noted Neuro General: no focal motor deficits Extrem General: Yes full ROM Psych Appearance: grossly normal Assessment and Plan Assessment & Plan (1) Physical exam: Code(s): Z00.00 - Encounter for general adult medical examination without abnormal findings Plan: Repeat in a year. (2) Mild major depression: Code(s): F32.0 - Major depressive disorder, single episode, mild Plan: Declines treatment. Follow-up visit requested. (3) Left knee pain: Code(s): M25.562 - Pain in left knee Qualifiers: Chronicity: chronic Qualified Code(s): M25.562 - Pain in left knee; G89.29 - Other chronic pain Plan: X-ray ordered. Referred to Ortho. Orders: Orders Lipid Panel Today E78.5 - Hyperlipidemia, unspecified Comprehensive Malone. Panel Fast Today Z00.00 - Encounter for general adult medical examination without abnormal findings XR knee LT 2V Today M25.562 - Pain in left knee Referrals Orthopedics Referral M25.562 - Pain in left knee Open Access Screening Colonoscopy Referral Z12.11 - Encounter for screening for malignant neoplasm of colon Coding Level of Care Code Est Pt Level 3 (15754) Est Pt Prev Care 40-64y(33299) Diagnoses Physical exam Z00.00 Mild major depression F32.0 Chronic pain of left knee M25.562; G89.29 Chronicity: chronic Additional Codes DIMITRY-7 Assessment Billing - DIMITRY-7 Assessment Tool: DIMITRY-7 Assessment 32570 ([id number]) Time Spent (min) 32
== END 2024-03-31 17:30 | disposition home or self-care (01) ==
PROVIDERS: PCP Internal Medicine; Visit Provider Internal Medicine
DX: Z00.00 Encounter for general adult medical examination without abnormal findings (principal); M25.562 Pain in left knee; F32.0 Major depressive disorder, single episode, mild
CPT/HCPCS: 99213; 99396

== ENCOUNTER 2024-04-13 07:51 | Outpatient (REF) | payer OTHER, SELFPAY ==
--- NOTE | ~2024-04-13 | US_ITS ---
EXAMINATION: US EXTRACRANIAL CAROTID DUPLEX, BILATERAL CLINICAL INFORMATION: Syncope and collapse COMPARISON: None available. TECHNIQUE: Real-time ultrasound and Doppler techniques (integrating B-mode 2-D vascular images, Doppler spectral analysis and color-flow Doppler imaging) were utilized to interrogate the extracranial carotid arteries, the vertebral arteries and proximal subclavian arteries bilaterally. The degree of stenosis is determined by criteria similar to NASCET. FINDINGS: Right Side: 1. There is no significant atherosclerotic plaque seen in the bifurcation/proximal ICA region. 2. The common carotid artery PSV proximally is 69 cm/s and distally 66 cm/s. 3. The proximal internal carotid artery velocities are 74 cm/s systolic and 30 cm/s diastolic. 4. The proximal external carotid artery PSV is 85 cm/s. 5. The vertebral artery shows antegrade flow. 6. The subclavian artery waveforms are normal. Left Side: 1. There is no significant atherosclerotic plaque seen in the bifurcation/proximal ICA region. 2. The common carotid artery PSV proximally is 74 cm/s and distally 66 cm/s. 3. The proximal internal carotid artery velocities are 62 cm/s systolic and 19 cm/s diastolic. 4. The proximal external carotid artery PSV is 55 cm/s. 5. The vertebral artery shows antegrade flow. 6. The subclavian artery waveforms are normal. US/US carotid duplex BI IMPRESSION: 1. RIGHT: Normal right internal carotid artery without atherosclerotic plaque or hemodynamically significant stenosis. 2. LEFT: Normal left internal carotid artery without atherosclerotic plaque or hemodynamically significant stenosis.
--- NOTE | 2024-04-13 07:54 | EEG_ITS ---
FINDINGS: The waking background activity consists of a low voltage fast frequencies seen diffusely intermixed with low-voltage posterior 10 hertz alpha frequency. Photic stimulation produced symmetrical photic driving responses on the posterior quadrants. Hyperventilation was omitted. No focal, lateralizing, or paroxysmal discharges are seen. IMPRESSION: This waking EEG is considered within normal limits. MD MARLENE Boyer/GEOVANNY / [id number]
== END 2024-04-13 07:52 | disposition home or self-care (01) ==
LOC: HO.NEURO 07:51
PROVIDERS: PCP Internal Medicine; Visit Provider Psychiatry & Neurology Neurology
DX: R55 Syncope and collapse (principal); G43.E09 Chronic migraine with aura, not intractable, without status migrainosus
CPT/HCPCS: 93880; 95816

== ENCOUNTER 2024-05-10 08:55 | Outpatient (REF) | payer OTHER, SELFPAY | END 2024-05-10 08:56 | disposition home or self-care (01) | LOC: HO.HOSX 08:55 | DX: M65.262 Calcific tendinitis, left lower leg (principal); G89.29 Other chronic pain | CPT/HCPCS: 99202 ==

== ENCOUNTER 2024-05-10 08:59 | Outpatient (REF) | payer OTHER, SELFPAY ==
--- NOTE | ~2024-05-10 | XR_ITS ---
EXAMINATION: XR KNEE, RIGHT XR KNEE, LEFT CLINICAL INFORMATION: Right and left knee pain. COMPARISON: Right and left knee radiographs dated 12/17/2017. TECHNIQUE: AP view of the right and left knee. Lateral and sunrise views of the left knee. FINDINGS: Right knee: No joint space narrowing or marginal osteophytes. No osseous erosion. No fracture or dislocation. No abnormal soft tissue calcification. Left knee: No joint space narrowing or marginal osteophytes. No fracture or dislocation. No concerning lytic or blastic osseous lesion. Superior patellar enthesophyte. No joint effusion. XR/XR knee LT 3V IMPRESSION: RIGHT KNEE: Unremarkable examination. LEFT KNEE: Unremarkable examination. Electronically signed by: Marc Zapata MD 05/14/2024 09:10 AM EDT
--- NOTE | ~2024-05-10 | XR_ITS ---
EXAMINATION: XR KNEE, RIGHT XR KNEE, LEFT CLINICAL INFORMATION: Right and left knee pain. COMPARISON: Right and left knee radiographs dated 12/17/2017. TECHNIQUE: AP view of the right and left knee. Lateral and sunrise views of the left knee. FINDINGS: Right knee: No joint space narrowing or marginal osteophytes. No osseous erosion. No fracture or dislocation. No abnormal soft tissue calcification. Left knee: No joint space narrowing or marginal osteophytes. No fracture or dislocation. No concerning lytic or blastic osseous lesion. Superior patellar enthesophyte. No joint effusion. XR/XR knee RT 1V IMPRESSION: RIGHT KNEE: Unremarkable examination. LEFT KNEE: Unremarkable examination. Electronically signed by: Marc Zapata MD 05/14/2024 09:10 AM EDT
[2024-05-10 11:21] LABS: Alanine Aminotransferase 11 U/L (0-31); Alkaline Phosphatase 91 U/L (39-117); Anion Gap 12 (12-20); Aspartate Amino Transferase 13 U/L (5-31); Bilirubin Total 0.5 mg/dL (0.0-1.0); Blood Urea Nitrogen 15 mg/dL (9-16); Calcium 9.3 mg/dL (8.4-10.2); Carbon Dioxide 27 mmol/L (22-29); Chloride 106 mmol/L (96-108); Cholesterol 189 mg/dL (<200); Estimated Glomerular Filt Rate > 60; Glucose Fasting 92 mg/dL (60-99); HDL Cholesterol 46 mg/dL (>40); LDL Cholesterol Calculated 118 mg/dL (<100); Potassium 4.1 mmol/L (3.3-5.1); Sodium 141 mmol/L (135-145); Total Protein 6.7 g/dL (6.5-8.0); Triglycerides 128 mg/dL (<150)
[2024-05-15 14:34] LABS: Vitamin D 25-OH, D2 <4 ng/mL; Vitamin D 25-OH, D3 21 ng/mL; Vitamin D 25-OH, Total 21 ng/mL (30-100)
== END 2024-05-10 09:00 | disposition home or self-care (01) ==
LOC: HO.LAB 08:59
PROVIDERS: Student in an Organized Health Care Education/Training Program; PCP Internal Medicine; Visit Provider Internal Medicine
DX: Z00.00 Encounter for general adult medical examination without abnormal findings (principal); M25.562 Pain in left knee; M25.561 Pain in right knee; Z13.21 Encounter for screening for nutritional disorder; E78.5 Hyperlipidemia, unspecified
CPT/HCPCS: 36415; 73560; 73562; 80053; 80061; 82306

== ENCOUNTER 2024-05-10 10:08 | Outpatient (AMB) | payer OTHER, SELFPAY ==
--- NOTE | 2024-05-10 10:10 | A.OFFVIS_ITS ---
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 Pt states this started about 5-6 months ago with no know injury. Pt states she has pain when walking and feels like it locks sometimes. Pt denies any previous surgeries or injections in her left knee. 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 The patient reports that there was no particular incident or injury that started her pain. Patient reports that, since this time, she has noticed increasing pain ?inside my knee?, associated with locking and catching, and worsens going up and down stairs. The patient reports that she has no tenderness to palpation of the left knee, and then she has not noticed any swelling, erythema, or ecchymosis. Patient denies any numbness or tingling in the distal left lower extremity. No other acute complai nts or concerns at this time. [facility] Medical History Chronic migraine with aura Syncope and collapse Bleeding hemorrhoids Stenosis of cervical spine region Left lower quadrant abdominal pain Left flank pain Neck pain GERD (gastroesophageal reflux disease) Osteoarthritis Rectal bleeding Chronic constipation Back pain Osteoporosis Vertigo Migraines Surgical History Hx of esophagogastroduodenoscopy Hx of colonoscopy Hx of discectomy S/P TAQUERIA-BSO History of tubal ligation History of appendectomy Family History Father Diabetes CVD (cardiovascular disease) Stroke Mother CVD (cardiovascular disease) Hypertension Cervical cancer Lung cancer Maternal Aunt Cancer Maternal Uncle Cancer Sister Breast cancer Other Family history of lupus erythematosus Social History Household Members: Spouse Housing: House Are you a primary personal care attendant to a significant other at home: No Do you presently have visiting nurse or other home services: No Alcohol intake: never Patient Tobacco Use Status: Never used Tobacco e-Cigarette/Vaping Use: Never Used Second Hand Smoke Exposure: Yes service: No Current occupational status: unemployed Current occupation: Phelebotomist Cognitive needs: No Hearing needs: No Vision needs: Yes Review of Systems Const All systems reviewed & are unremarkable except as noted in HPI and below Physical Exam Extrem Other: On inspection, there is no visible deformity of the left knee No edema, erythema, ecchymosis noted No lacerations or abrasions noted No evidence of infection noted Patient reports no tenderness to palpation of the medial or lateral joint lines No tenderness to palpation of the posterior knee noted No tenderness to palpation of the quadriceps tendon or patellar tendon Patient is able to actively extend the knee to 0 degrees without difficulty Patient is able to actively flex the knee to 130 degrees without difficulty Negative Domingo's test Negative varus and valgus stress testing Negative anterior drawer Distal sensation intact Capillary refill brisk Results Reviewed Results Reviewed: X-rays obtained in the office today and independently reviewed by me, Manoj Olguin PA-C, demonstrate mild lateralization of the left patella and calcification of the left quadriceps tendon at the patella. No fracture or acute bony abnormality noted. Assessment & Plan Assessment & Plan (1) Left knee pain: Code(s): M25.562 - Pain in left knee Category: Medical Qualifiers: Chronicity: chronic Qualified Code(s): M25.562 - Pain in left knee; G89.29 - Other chronic pain (2) Calcific tendinitis of left knee: Code(s): M65.262 - Calcific tendinitis, left lower leg Category: Medical (3) Internal derangement of left knee: Code(s): M23.92 - Unspecified internal derangement of left knee Category: Medical Plan 1. Internal derangement of left knee 2. Left knee pain 3. Calcific tendinitis of quad tendon of left knee Patient is informed that history is potentially consistent with meniscal derangement, however her physical exam findings today were not suggestive of potential meniscal injury At this time, the patient will be referred for physical therapy range of motion, strengthening, stabilization of the left knee and correction of mild lateralization of the left patella Patient is amenable to this plan If in 6-8 weeks the patient is not noticing relief with physical therapy, she will call to make a follow-up appointment with us, sooner with any acute concerns Orders: Orders XR knee LT 3V Today M25.562 - Pain in left knee XR knee RT 1V Today M25.561 - Pain in right knee PT Evaluation and Treatment Today G89.29 - Other chronic pain, M25.562 - Pain in left knee, M65.262 - Calcific tendinitis, left lower leg Coding Level of Care Code New Pt Level 3 (61243) Diagnoses Chronic pain of left knee M25.562; G89.29 Chronicity: chronic Calcific tendinitis of left knee M65.262 Internal derangement of left knee M23.92
== END 2024-05-10 10:38 | disposition home or self-care (01) ==
PROVIDERS: PCP Internal Medicine
DX: M25.562 Pain in left knee (principal); G89.29 Other chronic pain; M65.262 Calcific tendinitis, left lower leg; M23.92 Unspecified internal derangement of left knee
CPT/HCPCS: 99203

== ENCOUNTER 2024-07-31 08:56 | Outpatient (REF) | payer OTHER, SELFPAY ==
--- NOTE | ~2024-07-31 | MM_ITS ---
EXAMINATION: MM SCREENING DIGITAL BREAST TOMOSYNTHESIS, BILATERAL CLINICAL INFORMATION: Screening. Asymptomatic. COMPARISON: Mammography: Comparison is made with available priors TECHNIQUE: Digital breast mammography with tomosynthesis is performed in both the craniocaudal and mediolateral oblique views along with computer-aided detection (CAD). FINDINGS: The breasts are heterogeneously dense, which may obscure small masses (ACR BI-RADS breast composition Category c). There are no significant masses, abnormal calcifications, or other abnormalities. MM/MM tomosynthesis screening BI IMPRESSION: No mammographic evidence of malignancy. ASSESSMENT: BI-RADS BI-RADS 1 - Negative RECOMMENDATION: Routine annual mammography screening. 1 year F/U This examination should not preclude the clinical evaluation of a suspicious palpable abnormality. This patient's information was entered into a reminder system with a target due date for their next mammogram. Electronically signed by: Brittany Gunn DO 08/10/2024 11:06 AM MELINDA
== END 2024-07-31 08:57 | disposition home or self-care (01) ==
LOC: HO.MAMMO 08:56
PROVIDERS: PCP Internal Medicine; Visit Provider Internal Medicine
DX: Z12.31 Encounter for screening mammogram for malignant neoplasm of breast (principal)
CPT/HCPCS: 77063; 77067

== ENCOUNTER → 2024-07-31 09:15 | Outpatient (BNV) | payer OTHER, SELFPAY | PROVIDERS: PCP Internal Medicine; Visit Provider Internal Medicine | DX: Z12.31 Encounter for screening mammogram for malignant neoplasm of breast (principal) | CPT/HCPCS: 77063; 77067 ==

== ENCOUNTER 2024-11-15 16:34 | Outpatient (AMB) | payer OTHER, SELFPAY ==
--- NOTE | 2024-11-15 16:57 | MHC.PC.OV ---
Vital Signs 11/15/24 16:59 Height 5 ft 2 in Weight 122 lb BMI 22.3 BP 110/76 Blood Pressure Location Lt brachial Position Sitting Intake Visit Reasons: Chronic Pain, Depression Intake Note: Patient here for a follow up chronic pain and depression Resource Manager Required: No Accompanied by: Self / Same As Patient Allergies peanut [PEANUT] Allergy (Severe, Verified 11/15/24 17:08) RASH amitriptyline [AMITRIPTYLINE] Allergy (Unknown, Verified 11/15/24 17:08) TACHYCARDIA, palpitations, palpitations meperidine [From DEMEROL] Allergy (Unknown, Verified 11/15/24 17:08) FAINTS Penicillins [PENICILLINS] Allergy (Unknown, Verified 11/15/24 17:08) UNK Medication List - Last Reconciled 11/15/24 by Deborah Mclain MD cholecalciferol (vitamin D3) 50 mcg PO DAILY ibuprofen-acetaminophen 125-250 mg (Advil Dual Action) 1 tab PO Q8H PRN meclizine 25 mg PO DAILY PRN 30 days omeprazole 20 mg PO DAILY PRN topiramate 25 mg PO BID tramadol 50 mg PO BID 30 days Tobacco use date assessed: 11/15/24 Dental Screening Dental Screen Date: 11/15/24 Did you have a dental visit in the last 12 months?: Yes Did you have a dental problem in the last 6 months where you did not have access to dental care?: No Was dental information given to patient?: Patient has dentist HPI HPI Comments History of Present Illness Details The patient is a 64-year-old female presenting with sinusitis and respiratory symptoms. Her symptoms began nearly two weeks ago and involved sinus tenderness, nasal congestion, and respiratory difficulty, likely due to a viral infection, given her 's positive Rhinovirus test. Despite not undergoing testing, she aligns her symptoms with these findings. Affected by severe symptoms at onset, her condition evolved from overwhelming to moderately troublesome with primary complaints tied to persistent sinus pain. For migraines, the patient employs Topamax as a preventive measure with some success, albeit noting a need for rapid-release medications if exposed to triggers like perfume. She employs environmental control at home and uses a mask to avert exposure where possible. The patient's migraines and depressive disorder are managed, with the latter currently in remission with no ongoing treatment. Previous experiences with depressive symptoms were noted but currently inactive. [facility] Medical History (Updated 11/15/24 @ 17:43 by Deborah cMlain MD) Chronic migraine with aura Syncope and collapse Bleeding hemorrhoids Stenosis of cervical spine region Left lower quadrant abdominal pain Left flank pain Neck pain GERD (gastroesophageal reflux disease) Osteoarthritis Rectal bleeding Chronic constipation Back pain Osteoporosis Vertigo Migraines Surgical History Hx of esophagogastroduodenoscopy Hx of colonoscopy Hx of discectomy S/P [place]ERIA-BSO History of tubal ligation History of appendectomy Family History Father Diabetes CVD (cardiovascular disease) Stroke Mother CVD (cardiovascular disease) Hypertension Cervical cancer Lung cancer Maternal Aunt Cancer Maternal Uncle Cancer Sister Breast cancer Other Family history of lupus erythematosus Social History Household Members: Spouse Housing: House Are you a primary skin care consultant to a significant other at home: No Do you presently have visiting nurse or other home services: No Alcohol intake: never Patient Tobacco Use Status: Never used Tobacco e-Cigarette/Vaping Use: Never Used Second Hand Smoke Exposure: Yes service: No Current occupational status: unemployed Current occupation: Phelebotomist Cognitive needs: No Hearing needs: No Vision needs: Yes Questionnaire PHQ-9 Over the last 2 weeks, how often have you been bothered by any of the following problems? 1. Little interest or pleasure in doing things: not at all 2. Feeling down, depressed, or hopeless: more than half the days 3. Trouble falling or staying asleep, or sleeping too much: more than half the days 4. Feeling tired or having little energy: not at all 5. Poor appetite or overeating: not at all 6. Feeling bad about yourself - or that you are a failure or have let yourself or your family down: not at all 7. Trouble concentrating on things, such as reading the newspaper or watching television: not at all 8. Moving or speaking so slowly that other people could have noticed. Or the opposite - being so fidgety or restless that you have been moving around a lot more than usual: several days 9. Thoughts that you would be better off or of hurting yourself in some way: not at all Total score: 5 Depression Screening Interpretation: Positive Depression Screening Follow-up: Existing condition, Follow-up Visit Requested and Declines treatment Depression Screening Done: Yes [id number] - PHQ-9 Billing: Yes Source: Developed by Drs. Anton Ivy, Hodan Elizalde, Enrico Souza and colleagues, with an educational renae from [employer]. Thrive Questionnaire Date Thrive assessed: 11/15/24 I am a: Patient What is your living situation today?: I have a steady place to live Within the past 12 months, did the food you bought not last and you didn't have the money to get more?: Never true Within the past 12 months, did you worry whether your food would run out before you got money to buy more?: Never true Do you have trouble paying for medicines?: No Do you have trouble getting transportation to medical appointments?: No Do you have trouble paying your heating and electricity bill?: No Do you have trouble taking care of your child, family member or friend?: No Do you have trouble with day-to-day activities such as bathing, preparing meals, shopping, managing finances, etc.?: No Are you currently unemployed and looking for a job?: No Are you interested in more education?: No Please select the resources that you would like help with: None Currently or been in a relationship where the following occur: No concerns reported THRIVE Score: 0 AUDIT C Alcohol Use Questionnaire (AUDIT-C) 1. How often do you have a drink containing alcohol?: Never Total Score: 0 Score Reviewed/Action Taken: No DIMITRY-7 AMB Questionnaire DIMITRY-7 Date DIMITRY - 7 assessed: 11/15/24 Feeling nervous, anxious, or on edge: 2 = More than half the days Not being able to stop or control worryin = Several days Worrying too much about different things: 2 = More than half the days Trouble relaxin = Not at all Being so restless that it is hard to sit still: 0 = Not at all Becoming easily annoyed or irritable: 1 = Several days Feeling afraid as if something awful might happen: 0 = Not at all Total DIMITRY-7 score (0-4 normal; 5-9 mild; 10-14 moderate; 15-21 severe): 6 Source: Developed by Drs. Anton Ivy, Hodan Elizalde, Enrico Souza and colleagues, with an educational renae from [employer]. DIMITRY-7 Assessment Billing DIMITRY-7 Assessment Tool: DIMITRY-7 Assessment 76900 Review of Systems Const All systems reviewed & are unremarkable except as noted in HPI and below ENT Reports post nasal drip and Reports sinus pressure Card Denies chest pain at rest, Denies chest pain with activity, Denies edema, Denies irregular heart rhythm, Denies claudication, Denies dyspnea, Denies dyspnea on exertion, Denies orthopnea, Denies paroxysmal nocturnal dyspnea and Denies slow heart rate Resp Denies cough, Denies dyspnea and Denies dyspnea on exertion GI Denies abdominal pain, Denies change in bowel habits, Denies excessive flatus, Denies nausea and Denies vomiting Denies urinary incontinence, Denies urinary hesitancy and Denies urinary urgency Musc Denies abnormal gait, Denies atrophy, Denies deformity and Denies limited range of motion Skin/Breast Denies bleeding lesions, Denies changing lesions and Denies rash Neuro Denies abnormal gait, Denies behavioral changes and Denies lack of coordination Psych Denies behavioral changes Physical exam (Primary Care) Vital Signs: Last Vital Signs BP 110/76 11/15/24 16:59 BMI result Body Mass Index 22.3 Tobacco/Smoking Status: Tobacco use Status Tobacco use date assessed 11/15/24 11/15/24 17:02 Patient Tobacco Use Status Never used Tobacco 11/15/24 17:02 e-Cigarette/Vaping Use Never Used 11/15/24 17:02 PHQ-9: PHQ-9 Score PHQ-9: Total score 5 11/15/24 17:02 Depression Screening Interpretation: Positive Depression Screening Follow-up: Existing condition, Follow-up Visit Requested and Declines treatment Thrive Assessment: Date of Thrive Assessment Date Thrive assessed 11/15/24 11/15/24 17:02 Currently or been in a relationship where the following occur: No concerns reported Resp Effort & Inspection: normal respiratory effort Auscultation: clear to auscultation bilaterally Cardio Jugular venous distension: no JVD Rate: regular rate Rhythm: regular rhythm Heart sounds: S1 normal heart sound present and S2 normal heart sound present Extrem General: Yes full ROM Coding Level of Care Code Est Pt Level 4 (74709) Complex EM visit Add On G2211 Diagnoses Chronic migraine with aura G43.E09 Mild major depression F32.0 URI (upper respiratory infection) J06.9 GERD (gastroesophageal reflux disease) K21.9 Additional Codes PHQ-9 - 02584 - PHQ-9 Billing: Yes ([id number]) DIMITRY-7 Assessment Billing - DIMITRY-7 Assessment Tool: DIMITRY-7 Assessment 07214 ([id number]) Time Spent (min) 23 Assessment & Plan Assessment & Plan (1) Chronic migraine with aura: Code(s): G43.E09 - Chronic migraine with aura, not intractable, without status migrainosus Category: Medical (2) Mild major depression: Code(s): F32.0 - Major depressive disorder, single episode, mild Category: Medical (3) URI (upper respiratory infection): Code(s): J06.9 - Acute upper respiratory infection, unspecified Category: Medical (4) GERD (gastroesophageal reflux disease): Code(s): K21.9 - Gastro-esophageal reflux disease without esophagitis Category: Medical Plan Sinusitis with potential bacterial superinfection requires treatment, thus azithromycin was prescribed for effectiveness in bacterial sinusitis cases. Continuing with Topamax, the patient is reminded of the importance of routine administration for optimal migraine prevention. The utilization of a fragrance-free environment for necessitate preventive measures against potential migraine triggers shows efficacy. Given resolved depressive symptoms, no current antidepressant treatment is needed. The patient should monitor her symptoms and consider additional testing if her condition does not improve. Patient was informed and verbally consented to the use of an ambient scribe for clinic note documentation during this visit. I discussed with the patient the likely viral origin of her symptoms given her household Rhinovirus exposure. Any persistence or severe worsening suggests a secondary bacterial infection involving her sinusitis, thus recommending azithromycin. I have highlighted the significance of sustained use of Topamax in reducing migraine occurrences and the importance of environmental controls in her migraine management strategy. COVID-19 testing consideration was also discussed should symptoms evolve unexpectedly. Future follow-up would coincide with laboratory assessments scheduled near her next physical examination date. Orders: Orders Complete Blood Count Auto Diff 5 Months G43.E09 - Chronic migraine with aura, not intractable, without status migrainosus Vitamin D 25-OH Total 5 Months E55.9 - Vitamin D deficiency, unspecified Lipid Panel 5 Months E78.5 - Hyperlipidemia, unspecified Comprehensive Louise. Panel Fast 5 Months G43.E09 - Chronic migraine with aura, not intractable, without status migrainosus Medications: New azithromycin Take 2 tabs the first day, then 1 tab for the next 4 days 250 mg PO DAILY 5 days 6 tabs 0RF Patient Instructions: - Start antibiotics as prescribed: azithromycin for the sinus infection. - Continue taking Topamax regularly to prevent migraines. - Avoid exposure to perfumes and use a mask in environments with potential irritants. - Monitor symptoms and seek further evaluation if they do not improve or worsen. - Prepare for your lab tests before the upcoming physical appointment. - Stay hydrated and continue resting to assist recovery from cold-related symptoms.
[2024-11-15 16:59] VITALS: BP 110/76; BMI 22.3
--- OUTSIDE RECORDS SUMMARY | 2024-11-15 18:58 | XMS_ITS | Data Portability ---
Author Organization [facility], Main Office Address [address] [place] [address] Care Team Providers Care Social Science Professor Name Role Phone RAMON OLAYINKA Primary Care Provider Assessment Encounter Date Assessment Date Assessment LastModified by Organization Details LastModified Time 06/08/2014 06/08/2014 Generally doing well. Reviewed risks and benefits of using TCA for chronic headaches and myalgias. Agrees to trial of low dose TCA. [email or web address] Not available 06/12/2014 13:25:30 Plan of Treatment Reminders Order Date Submit Date Provider Last Modified By Organization Details Last Modified Time Details Appointments None record ed. Lab RPR (rapid plasma reagin ), serum 2014 015 [email or web address] Not available 5 08:37:33 vitami n B12, serum 2014 015 bsolivanmattos Not available 5 08:37:33 methyl maloni c acid, urine 2014 015 bsolivanmattos Not available 5 08:37:33 TSH, serum or plasma 2014 015 bsolivanmattos Not available 5 15:28:24 Referral hand surgeo n referr al 2014 015 NICO Mathis MD, [facility], [place], [address], 5 21:39:05 neurop sychol ogist referr al 2014 015 bsolivannelly Niño, [address] [place], [address], 5 13:38:10 physic al therap ist referr al 2014 015 arnulfojacob [facility], [address] [place], [address], 5 10:18:19 gastro entero logist referr al 2013 014 arnulfojacob Benítez MD, [address] [facility], [address], [address], 4 14:49:47 Procedures None record ed. Surgeries None record ed. Imaging x-ray, wrist, 2 views - 2 mos pain in left wrist after injury winsome hong 2014 015 [facility], [address] [place] [address], [id number], 5 09:03:21 Medication Orders azithr omycin 250 mg tablet [id number] [facility], [address] [place] [address], [id number], 5 16:25:47 amitri ptylin e 10 mg tablet [id number] [facility], [address] [place] [address], [address], 5 16:25:47 Patient TargetsNo targets recorded. Patient Instructions Encounter Date Encounter Id Patient Instructions Last Modified By Organization Details Last Modified Time 06/08/2014 [id number] joint pain: care instructions [email or web address] Not available 06/14/2014 08:07:02 exercise program : getting started josé antonio Not available 06/12/2014 13:26:03 Medications were reviewed at this visit and reconciled. Changes in the active medications are reflected in the current medication list and discussed with patient (or caregiver) with instructions for follow up as needed. Printed medication list provided to the patient as part of the visit summary. josé antonio Not available 06/12/2014 13:25:30 08/09/2014 [id number] Recommend supportive treatment including rest, hydration, ibuprofen as directed prn. ? ? ?Return to office is persistent or worsening symptoms. I have reviewed the note and agree with the assessment and plan of care. [facility] Not available 08/11/2014 08:19:41 12/13/2014 [id number] benign paroxysma l positional vertigo (bppv): care instructions [facility] Not available 12/15/2014 14:42:30 Reason for Referral Referring Physician: Olayinka hernandez, Internal Medicine, Encounter Date: 06/08/2014 Hand Surgeon Referral for Pa in in wrist Referring Physician: Olayinka Leon, Internal Medicine, Encounter Date: 12/13/2014 Referring Physician: Olayinka hernandez, Internal Medicine, Encounter Date: 12/13/2014 Neuropsychologist Referral f or Poor short-term memory Referring Physician: Olayinka Leon, Internal Medicine, Encounter Date: 12/13/2014 Results Created Date Observation Date Name Description Value Unit Range Abnormal Flag Note LastModifiedBy Organization Detail LastModifiedTime 08/01/20 14 07/03/2010 MAMMO , scree dara, digit al, bilat eral Histor y: Screen ing BILATE RAL MAMMOG GAYE Techni que: Full-f ield digita l mammog racheal. Views: Cranio caudal and MLO views of both breast s were obtain ed. Compar yamileth: Septem bandar 2006 and Januar y 2008 Findin gs: The breast parenc hyma is hetero geneou sly dense decrea sing sensit ivity. In the far gas meter prover ior medial right breast on cranio caudal view and on the gas meter prover ior edge of the film in the nipple line in the MLO projec tion there are asymme tries not seen previo usly. Howeve r, it appear s that these areas were exclud ed from prior studie s becaus e of change s in projec tion. They have a relati vely benign appear ance. There are no suspic ious cluste red microc alcifi cation s. The rest parenc hyma is otherw ise unrema rkable and unchan ged. Impres daniel: Benign -appea ring new asymme tries in the right breast , which were probab ly exclud ed from the field- of-vie w on prior studie s. Six-mo nth follow up examin ation of the right breast accent uating the gas meter prover ior medial aspect on the cranio caudal view and the far gas meter prover ior aspect of the breast on the MLO projec tion is recomm ended to docume nt stabil ity. CODE: 3, probab ly benign LETTER : L7, 6 month F/U Comput er-aid ed detect ion (CAD) was used in the interp retati on of this study Patien t Class: Outpat ient build [facility] (Centralized Electronic Ordering - All Locations) Patient Can Go To The Location Of Their Choice, [id number] 08/23/2015 04:10:25 08/01/20 14 01/02/2011 MAMMO , diagn ostic , digit al, unila teral Diagno stic digita l right mammog gaye 011 Histor y: Six-mo nth follow up recomm ended on screen ing mammog gaye on 2009 for some parenc hymal asymme tries which were likely benign . As recomm ended in the study from 2009 , the patien t return for additi onal views . Digita l CC and MLO views were obtain ed of the right breast were obtain ed as well spot cc the medial breast . These are compar ed to earlie r exam from 2009, as well as 05/22/20 07 and 006. The breast parenc hyma is hetero geneou sly dense. The overal l patter n is simila r. The area of asymme try medial ly is less distin ct than on earlie r study and comple tely efface s on spot cc view. The area in the gas meter prover ior breast on the MLO projec tion also does not persis t. There are no domina nt masses , areas of distor tion or suspic ious cluste rs of microc alcifi cation in the right breast . Impres daniel: No radiog raphic eviden ce of malign armin. Hetero geneou sly dense tissue as before . Unless otherw ise indica sacha clinic ally, the patien t will be due for bilate ral screen ing in 6 months . BI-RAD S 2, L 7 - 6 a Comput er-aid ed detect ion (CAD) was used in interp retati on of this study. Dictat ed By: Sindy Westbrook MD, I Dictat ed Date/T harriet: 4:36 pm Review ed By: Sindy Westbrook MD, I Signed By: Sindy Westbrook MD, I Signed Date/T harriet: 5:03 pm Transc ribed By: CSB Transc riptio n Date/T harriet: 4:36 pm Birads : 2-Reyes Patiben t Class: Outpat ient build [facility] (Centralized Electronic Ordering - All Locations) Patient Can Go To The Location Of Their Choice, [id number] 08/23/2015 04:10:25 08/01/20 14 11/06/2011 MAMMO , scree dara, digit al, bilat eral BILATE RAL MAMMOG GAYE Digita l images of both breast s were obtain ed and review ed with CAD. Compar yamileth is made with previo us dating back to 2005 The breast tissue is hetero geneou sly dense, loweri ng the sensit ivity of mammog racheal. No suspic ious masses , cluste rs of calcif icatio ns, or areas of gladys ectura l distor tion are seen in either breast . IMPRES DANIEL: Hetero geneou sly dense breast tissue , limiti ng the sensit ivity of mammog racheal. No mammog raphic eviden ce of malign armin. 1-Nega tive L3 letter mailed to markus maya Dictat ed By: Chalino Chavez MD Dictat ed Date/T harriet: 2:59 pm Review ed By: Chalino Chavez MD Signed By: Chalino Chavez MD Signed Date/T harriet: 4:21 pm Transc ribed By: CSB Transc riptio n Date/T harriet: 2:59 pm Birads : 1-Neg Patien t Class: Outpat ient build [facility] (Centralized Electronic Ordering - All Locations) Patient Can Go To The Location Of Their Choice, [id number] 08/23/2015 04:10:25 08/01/20 14 08/13/2013 MAMMO , scree dara, digit al, bilat eral Final Result Name: DENICE ADLER 7 Sex: F : 1959 Locati on: F Admitt ing Physic quan: Jessica quigley Physic quan: Olayinka hernandez Exam: DIGITA L MAMMOG GAYE, SCREEN ING BILATE RAL 2012 11:43 Histor y: Screen ing Full-f ield digita l mammog racheal of both breast s was perfor med and compar ed to previo us dating back to 2009. The breast tissue is hetero geneou sly dense (appro ximate ly 51-75% glandu lar), which could obscur e detect ion of masses . There sugges tion of the small nodula r asymme try in the superi or right breast on the MLO view, anteri or depth. No suspic ious masses , suspic ious cluste rs of calcif icatio ns, or areas of gladys ectura l distor tion are seen in the left breast . IMPRES DANIEL: Hetero geneou sly dense breast tissue , loweri ng the sensit ivity of mammog racheal. Asymme try in the superi or right breast on the MLO view. Spot compre ssion MLO and latera l views sugges sacha for furthe r evalua tion. Ultras ound may be necess maryann. We will recall the patien t to have additi onal imagin g perfor med. BI-RAD S 0 (Incom plete, needs additi onal imagin g evalua tion) Lay letter mailed to patiben t. Comput er-aid ed detect ion (CAD) was used in the interp retati on of this study. Interp reted by: Preet wakefield MD, Erinn Plasencia WSN: [id number] Interp reting Radiol ogist: Erinn wakefield Attend ing Radiol ogist: Erinn wakefield Finali zing Radiol ogist: Erinn wakefield Transc ribed Date: Finali zed Date: 2012 09:40 Dictat ed By: Erinn Jeffery MD Dictat ed Date/T harriet: 9:41 am Review ed By: Erinn Jeffery MD Signed By: Erinn Jeffery MD Signed Date/T harriet: 9:41 am Transc ribed By: ALLISON Transc riptio n Date/T harriet: 9:41 am Birads : Patien t Class: Outpat ient build [facility] (Centralized Electronic Ordering - All Locations) Patient Can Go To The Location Of Their Choice, [id number] 08/23/2015 04:10:25 08/01/20 14 08/19/2013 MAMMO , diagn ostic , digit al, unila teral Final Result Name: DENICE ADLER 7 Sex: F : 1959 Locati on: F Admitt ing Physic quan: Reques ting Physic quan: Olayinka hernandez Exam: DIGITA L MAMMOG GAYE, DIAGNO STIC RIGHT 2012 09:32 Digita l diagno stic mammog gaye and ultras ound of the right breast was perfor med. HISTOR Y: Right breast asymme try.. Compar yamileth made to multip le prior mammog betty, most recent ly from . TECHNI QUE AND FINDIN GS:Spo t MLO and 90 degree s latera l views of the right breast were obtain ed. The asymme try in the superi or breast seen on the prior study persis ts on additi onal views. Focuse d ultras ound of the right breast demons trates a 0.7 x 0.3 x 0.7 cm well-d efined hypoec hoic nodule at the 10:00 positi on, 4 cm from the nipple . The lesion is wider than tall. This likely correl ates to the asymme try seen on mammog gaye. There is no supply chain intern al color- flow. IMPRES DANIEL:T he asymme try on mammog gaye appear s to correl ate to a probab ly benign 7 mm ovoid hypoec hoic mass at 10:00. The sonogr aphic appear ance is most sugges tive of a fibroa denoma . Since this is a new findin g, follow -up right breast ultras ound is recomm ended in 6 months to ensure stabil ity. BI-RAD S 3 (Proba shannan benign ) Lay letter mailed to markus Torrez reted by: Preet wakefield MD, Erinn Plasencia WSN: [id number] Interp reting Radiol ogist: Erinn wakefield MD Attend ing Radiol ogist: Erinn wakfeield MD Finali zing Radiol ogist: Erinn wakefield MD Transc ribed Date: Finali zed Date: 2012 10:33 Dictat ed By: Erinn Jeffery MD Dictat ed Date/T harriet: 10:34 am Review ed By: Erinn Jeffery MD Signed By: Erinn Jeffery MD Signed Date/T harriet: 10:34 am Transc ribed By: TR Transc riptio n Date/T harriet: 10:34 am Birads : Markus maya Class: Outpat ient build [facility] (Centralized Electronic Ordering - All Locations) Patient Can Go To The Location Of Their Choice, [id number] 08/23/2015 04:10:25 08/01/20 14 08/19/2013 US breas t right Final Result Name: DENICE ADLER 7 Sex: F : 1959 Locati on: F Admitt ing Physic quan: Jessica quigley Physic quan: Olayinka hernandez Exam: US-CATHERINE AST UNILAT RIGHT 2012 09:52 Please see right breast diagno stic mammog gaye report from the same day. Interp reted by: Preet wakefield MD, Erinn Plasencia WSN: YOEL S-RAD1 Interp reting Radiol ogist: Erinn wakefield MD Attend ing Radiol ogist: Erinn wakefield MD Finali zing Radiol ogist: Erinn wakefield MD Transc ribed Date: Finali zed Date: 2012 10:33 Dictat ed By: Erinn Jeffery MD Dictat ed Date/T harriet: 10:34 a Review ed By: Erinn Jeffery MD Signed By: Erinn Jeffery MD Signed Date/T harriet: 10:34 am Transc ribed By: ALLISON Transc ribed Date/T harriet: 10:34 am Patien t Class: Outpat ient build [facility] (Centralized Electronic Ordering - All Locations) Patient Can Go To The Location Of Their Choice, [id number] 08/23/2015 04:10:25 08/01/20 14 03/06/2014 US breas t right Final Result Name DORY Browning 7 Sex F 10 1959 Locati on F Admitt ing Physic quan Reques ting Physic quan Olayinka Nicola h Exam US-CATHERINE AST UNILAT RIGHT 03 07 2014 10 27 Please see report for diagno stic right mammog gaye perfor med on the same day. WSN RII-WA S-[id number] 01 Interp reting Radiol ogist Melany siegel MD Attend ing Radiol ogist Melany siegel MD Finali zing Radiol ogist Melany siegel MD Transc ribed Date 03 07 2014 12 58 Finali zed Date 03 07 2014 12 58 Dictat ed By: Melany Baeza MD, V Dictat ed Date/T harriet: 1:01 pm Review ed By: Melany Baeza MD, V Signed By: Melany Baeza MD, V Signed Date/T harriet: 1:01 pm Transc ribed By: ALLISON Transc ribed Date/T harriet: 1:01 pm Patien t Class: Outpat ient build [facility] (Centralized Electronic Ordering - All Locations) Patient Can Go To The Location Of Their Choice, [id number] 08/23/2015 04:10:25 08/01/20 14 03/06/2014 MAMMO , diagn ostic , digit al, unila teral Final Result Name DORY Browning 7 Sex F 10 1959 Locati on F Admitt ing Physic quan Reques ting Physic quan Olayinka Nicola h Exam DIGITA L MAMMOG GAYE DIAGNO STIC RIGHT 03 07 2014 10 34 Diagno stic right mammog gaye and target ed right breast ultras ound INDICA TION Patien t presen ts today for ultras ound guided right breast biopsy . Full-f ield digita l MLO view of the right breast was perfor med and compar ed to the prior studie s. Right breast ultras ound was also perfor med. Findin gs The previo usly seen asymme try in the superi or anteri or right breast is again seen unchan ged mammog raphic ally since the prior study. On today s ultras ound the previo usly seen nodule at the 10 00 positi on 4 mm from the nipple appear s simila r in size since 08 20 2013 measur ing 0.7 x 0.3 x 0.7 cm. Additi onal nodule is seen at 11 00 positi on 4 cm from the nipple likely repres enting the nodule seen on 03 07 2014 which is isoech oic to surrou nding tissue and may repres ent a fat lobule . IMPRES DANIEL The nodule seen on the prior ultras ound study from 08 20 2013 appear s stable in size on the ultras ound today and unchan ged mammog raphic ally since the prior studie s. This likely repres ent benign findin gs. Recomm end repeat six-mo nth right breast ultras ound along with screen ing mammog gaye at the same time. BI-RAD S 3 probab ly benign . Findin gs and recomm endati ons were review ed with Dr. Rico who agrees with this interp retati on. Comput er-aid ed detect ion (CAD) was used in the interp retati on of this study. WSN RII-WA S-RAD7 05 Interp reting Radiol ogist Melany siegel MD Attend ing Radiol ogist Melany siegel MD Finali zing Radiol ogist Melany siegel MD Transc ribed Date 03 07 2014 13 12 Finali zed Date 03 07 2014 13 12 Dictat ed By: Melany Baeza MD, V Dictat ed Date/T harriet: 1:15 pm Review ed By: Melany Baeza MD, V Signed By: Melany Baeza MD, V Signed Date/T harriet: 1:15 pm Transc ribed By: TR Transc riptio n Date/T harriet: 1:15 pm Birads : Markus maya Class: Outpat ient build [facility] (Centralized Electronic Ordering - All Locations) Patient Can Go To The Location Of Their Choice, [id number] 08/23/2015 04:10:25 08/19/20 14 08/19/2013 MAMMO , diagn ostic , digit al, unila teral A D D E N D U M as of: [id number] Final Result Name DORY Browning 7 Sex F 10 1959 Locati on F Admitt ing Physic quan Reques ting Physic quan Olayinka Petersen h Exam DIGITA L MAMMOG GAYE DIAGNO STIC RIGHT 2012 Digita l diagno stic mammog gaye and ultras ound of the right breast was perfor med. HISTOR Y Right breast asymme try.. Compar yamileth made to multip le prior mammog betty most recent ly from 08 14 13. TECHNI QUE AND FINDIN GS Spot MLO and 90 degree s latera l views of the right breast were obtain ed. The asymme try in the superi or breast seen on the prior study persis ts on additi onal views. Focuse d ultras ound of the right breast demons trates a 0.7 x 0.3 x 0.7 cm well-d efined hypoec hoic nodule at the 10 00 positi on 4 cm from the nipple . The lesion is wider than tall. This likely correl ates to the asymme try seen on mammog gaye. There is no supply chain intern al color- flow. IMPRES DANIEL The asymme try on mammog gaye appear s to correl ate to a probab ly benign 7 mm ovoid hypoec hoic mass at 10 00. The sonogr aphic appear ance is most sugges tive of a fibroa denoma . Since this is a new findin g follow -up right breast ultras ound is recomm ended in 6 months to ensure stabil ity. BI-RAD S 3 (Proba shannan benign ) Lay letter mailed to markus Torrez reted by Preet DINERO RII-MARIA INES S-RAD1 Interp reting Radiol ogist Erinn wakefield MD Attend ing Radiol ogist Erinn wakefield MD Finali zing Radiol ogist Erinn wakefield MD Transc ribed Date Finali zed Date 08 20 2013 10 33 Dictat ed By: Erinn Jeffery MD Dictat ed Date/T harriet: 10:34 am Review ed By: Erinn Jeffery MD Signed By: Erinn Jeffery MD Signed Date/T harriet: 10:34 am Transc ribed By: TR Transc riptio n Date/T harriet: 10:34 am Birads : Patien t Class: Outpat ient build [facility] (Centralized Electronic Ordering - All Locations) Patient Can Go To The Location Of Their Choice, [id number] 08/23/2015 04:10:25 08/19/20 14 08/19/2013 US breas t right A D D E N D U M as of: [id number] Final Result Name DORY Browning 7 Sex F 10 1959 Locati on F Admitt ing Physic quan Reques ting Physic quan Olayinka Nicola h Exam US-CATHERINE AST UNILAT RIGHT 08 20 2013 09 52 Please see right breast diagno stic mammog gaye report from the same day. Interp reted by Preet Plasencia N RII-WA S-RAD1 Interp reting Radiol ogist Erinn wakefield MD Attend ing Radiol ogist Erinn wakefield MD Finali zing Radiol ogist Erinn wakefield MD Transc ribed Date Finali zed Date 08 20 2013 10 33 Dictat ed By: Erinn Jeffery MD Dictat ed Date/T harriet: 10:34 a Review ed By: Erinn Jeffery MD Signed By: Erinn Jeffery MD Signed Date/T harriet: 10:34 am Transc ribed By: TR Transc ribed Date/T harriet: 10:34 am Patien t Class: Outpat ient build [facility] (Centralized Electronic Ordering - All Locations) Patient Can Go To The Location Of Their Choice, [id number] 08/23/2015 04:10:25 08/19/20 14 03/01/2014 US breas t right Final Result Name DORY Browning 7 Sex F 10 11 1959 Locati on F Admitt ing Physic quan Reques ting Physic quan Olayinka Petersen h Exam US-CATHERINE AST UNILAT RIGHT 03 01 2014 10 13 Histor y Right breast mass. Six-mo nth follow -up ultras ound recomm ended. Ultras ound of the previo usly docume nted mass in the 10 00 positi on of the right breast 4 cm from the nipple was compar ed with the previo us ultras ound images from 08 20 2013. There is an oval solid mass with parall el orient ation and circum scribe d margin s again noted. This findin g now measur es 10 x 12 x 4 mm. It has increa sed in size since the previo us study. Theref ore ultras ound-g uided core biopsy is recomm ended. Impres daniel Previo usly docume nted mass in the 10 00 positi on of the right breast has enlarg ed since 08 20 2013. Core biopsy is recomm ended. I discus sed the findin gs and recomm endati on for biopsy with the markus maya. She was given an appoin tment to have the proced ure perfor med on 03 07 2014. BI-RAD S 4 (Suspi cious) Lay letter mailed to markus maya Richa RII-WA S-RAD7 01 Interp reting Radiol ogist Hever Rico MD Attend ing Radiol ogist Hever Rico MD Finali zing Radiol ogist Hever Rico MD Transc ribed Date 03 01 2014 10 20 Finali zed Date 03 01 2014 10 20 Dictat ed By: Hever Rico MD Dictat ed Date/T harriet: 10:23 a Review ed By: Hever Rico MD Signed By: Hever Rico MD Signed Date/T harriet: 10:23 am Transc ribed By: ALLISON Transc ribed Date/T harriet: 10:23 am Markus maya Class: Outpat ient build [facility] (Centralized Electronic Ordering - All Locations) Patient Can Go To The Location Of Their Choice, [id number] 08/23/2015 04:10:25 08/19/20 14 03/06/2014 US breas t right A D D E N D U M as of: [id number] Final Result Name DORY Browning 7 Sex F 10 11 1959 Locati on F Admitt ing Physic quan Reques ting Physic quan Olayinka Nicola h Exam US-CATHERINE AST UNILAT RIGHT 03 07 2014 10 27 Please see report for diagno stic right mammog gaye perfor med on the same day. WSN RII-WA S-[id number] 01 Interp reting Radiol ogist Melany siegel MD Attend ing Radiol ogist Melany siegel MD Finali zing Radiol ogist Melany siegel MD Transc ribed Date 03 07 2014 12 58 Finali zed Date 03 07 2014 12 58 Dictat ed By: Melany Baeza MD, V Dictat ed Date/T harriet: 1:01 pm Review ed By: Melany Baeza MD, V Signed By: Melany Baeza MD, V Signed Date/T harriet: 1:01 pm Transc ribed By: ALLISON Transc ribed Date/T harriet: 1:01 pm Patien t Class: Outpat ient build [facility] (Centralized Electronic Ordering - All Locations) Patient Can Go To The Location Of Their Choice, [id number] 08/23/2015 04:10:25 08/19/20 14 03/06/2014 MAMMO , diagn ostic , digit al, unila teral A D D E N D U M as of: [id number] Final Result Name DORY Browning 7 Sex F 10 11 1959 Locati on F Admitt ing Physic quan Reques ting Physic quan Olayinka Nicola h Exam DIGITA L MAMMOG GAYE DIAGNO STIC RIGHT 03 07 2014 10 34 Diagno stic right mammog gaye and target ed right breast ultras ound INDICA TION Patien t presen ts today for ultras ound guided right breast biopsy . Full-f ield digita l MLO view of the right breast was perfor med and compar ed to the prior studie s. Right breast ultras ound was also perfor med. Findin gs The previo usly seen asymme try in the superi or anteri or right breast is again seen unchan ged mammog raphic ally since the prior study. On today s ultras ound the previo usly seen nodule at the 10 00 positi on 4 mm from the nipple appear s simila r in size since 08 20 2013 measur ing 0.7 x 0.3 x 0.7 cm. Additi onal nodule is seen at 11 00 positi on 4 cm from the nipple likely repres enting the nodule seen on 03 07 2014 which is isoech oic to surrou nding tissue and may repres ent a fat lobule . IMPRES DANIEL The nodule seen on the prior ultras ound study from 08 20 2013 appear s stable in size on the ultras ound today and unchan ged mammog raphic ally since the prior studie s. This likely repres ent benign findin gs. Recomm end repeat six-mo nth right breast ultras ound along with screen ing mammog gaye at the same time. BI-RAD S 3 probab ly benign . Findin gs and recomm endati ons were review ed with Dr. Rico who agrees with this interp retati on. Comput er-aid ed detect ion (CAD) was used in the interp retati on of this study. WSN RII-WA S-[id number] 05 Interp reting Radiol ogist Melany siegel MD Attend ing Radiol ogist Melany siegel MD Finali zing Radiol ogist Melany siegel MD Transc ribed Date 03 07 2014 13 12 Finali zed Date 03 07 2014 13 12 Dictat ed By: Melany Baeza MD, V Dictat ed Date/T harriet: 1:15 pm Review ed By: Melany Baeza MD, V Signed By: Melany Baeza MD, V Signed Date/T harriet: 1:15 pm Transc ribed By: ALLISON Disla riptio n Date/T harriet: 1:15 pm Birads : Patien t Class: Outpat ient build [facility] (Centralized Electronic Ordering - All Locations) Patient Can Go To The Location Of Their Choice, [id number] 08/23/2015 04:10:25 Result Notes None recorded. Problems Name Problem SNOMED Code Status Onset Date Resolution Date Notes Provider Name and Address Organization Details Recorded Time Acute bronchit is [id number] Completed 201104/21/2014 RECORDED 06/25/20 12 9:16AM BY CATRINA SAMPSON MA, ANNOTATI ON/ADDEN DUM Not Available [facility] 4 12:20:04 Screenin g for malignan t neoplasm of breast Completed 201104/21/2014 RECORDED 06/25/20 12 9:16AM BY CATRINA SAMPSON MA, ANNOTATI ON/ADDEN DUM Not Available [facility] 4 12:20:04 Conjunct ivitis 4696976 Completed 201104/21/2014 RECORDED 06/25/20 12 9:16AM BY CATRINA SAMPSON MA, ANNOTATI ON/ADDEN DUM Not Available [facility] 4 12:20:05 Dysphagi a 12053367 Completed 201104/21/2014 RECORDED 06/25/20 12 9:16AM BY CATRINA SAMPSON MA, ANNOTATI ON/ADDEN DUM Not Available [facility] 4 12:20:05 Respirat ory finding [id number] Completed 201104/21/2014 RECORDED 06/25/20 12 9:16AM BY CATRINA SAMPSON MA, ANNOTATI ON/ADDEN DUM Not Available [facility] 4 12:20:05 Follow-u p encounte r Completed 201104/21/2014 RECORDED 06/25/20 12 9:16AM BY CATRINA SAMPSON MA, ANNOTATI ON/ADDEN DUM Not Available [facility] 4 12:20:05 Mammogra phy abnormal 501532393 Completed 201104/21/2014 RECORDED 06/25/20 12 9:16AM BY CATRINA SAMPSON MA, ANNOTATI ON/ADDEN DUM Not Available [facility] 4 12:20:05 Administ ration of bacteria l and viral vaccine Completed 200904/21/2014 RECORDED 05/30/20 10 3:19PM BY ANAT SMITH , OFFICE VISIT Not Available [facility] 4 12:20:05 Headache disorder 202226955 Completed 201104/21/2014 IMPRESSI ON: UNILATER AL, SEVERE HEADACHE ON THE RIGHT SIDE FOR 2 WEEKS. ASSOCIAT ED WITH RIGHT FACIAL NUMBNESS AND ARM NUMBNESS . R/O ANEURYSM OR MASS.; RECORDED 06/25/20 12 9:16AM BY CATRINA SAMPSON MA, QUINN ON/ADDEN DUM Not Available [facility] 4 12:20:05 Influenz a vaccine needed [id number] 06 Completed 201104/21/2014 RECORDED 06/25/20 12 9:22AM BY CATRINA SAMPSON MA, OFFICE VISIT Not Available [facility] 4 12:20:05 Adult health examinat ion Completed 201104/21/2014 RECORDED 07/22/20 12 1:06PM BY CATRINA SAMPSON MA, ANNOTATI ON/ADDEN DUM Not Available [facility] 4 12:20:05 Tubercul osis screenin g Completed 201104/21/2014 RECORDED 07/20/20 12 9:20AM BY AMY DANGELO I, HISTORIC AL SUMMARY Not Available [facility] 4 12:20:05 Urinary tract infectio us disease 46130365 Active Paul Madison, [facility] [address] [address], [place], [address] , [facility] 5 18:58:13 Acute bronchit is 53462981 Completed 201104/22/2014 RECORDED 06/25/20 12 9:16AM BY CATRINA SAMPSON MA, QUINN ON/ADDEN DUM Not Available [facility] 4 03:36:15 Screenin g for malignan t neoplasm of breast Completed 201104/22/2014 RECORDED 06/25/20 12 9:16AM BY CATRINA SAMPSON MA, ANNOTATI ON/ADDEN DUM Not Available [facility] 4 03:36:15 Conjunct ivitis 8841923 Completed 201104/22/2014 RECORDED 06/25/20 12 9:16AM BY CATRINA SAMPSON MA, ANNOTATI ON/ADDEN DUM Not Available [facility] 4 03:36:15 Dysphagi a 58119921 Completed 201104/22/2014 RECORDED 06/25/20 12 9:16AM BY CATRINA SAMPSON MA, ANNOTATI ON/ADDEN DUM Not Available [facility] 4 03:36:15 Respirat ory finding 134782347 Completed 201104/22/2014 RECORDED 06/25/20 12 9:16AM BY CATRINA SAMPSON MA, ANNOTATI ON/ADDEN DUM Not Available [facility] 4 03:36:15 Follow-u p encounte r Completed 201104/22/2014 RECORDED 06/25/20 12 9:16AM BY CATRINA SAMPSON MA, QUINN ON/ADDEN DUM Not Available [facility] 4 03:36:15 Mammogra phy abnormal 733462378 Completed 201104/22/2014 RECORDED 06/25/20 12 9:16AM BY CATRINA SAMPSON MA, ANNOTATI ON/ADDEN DUM Not Available [facility] 4 03:36:15 Administ ration of bacteria l and viral vaccine Completed 200904/22/2014 RECORDED 05/30/20 10 3:19PM BY ANAT SMITH , OFFICE VISIT Not Available [facility] 4 03:36:15 Headache disorder 836737847 Completed 201104/22/2014 IMPRESSI ON: UNILATER AL, SEVERE HEADACHE ON THE RIGHT SIDE FOR 2 WEEKS. ASSOCIAT ED WITH RIGHT FACIAL NUMBNESS AND ARM NUMBNESS . R/O ANEURYSM OR MASS.; RECORDED 06/25/20 12 9:16AM BY CATRINA SAMPSON MA, QUINN ON/ADDEN DUM Not Available [facility] 4 03:36:15 Influenz a vaccine needed [id number] 06 Completed 201104/22/2014 RECORDED 06/25/20 12 9:22AM BY CATRINA SAMPSON MA, OFFICE VISIT Not Available [facility] 4 03:36:15 Adult health examinat ion Completed 201104/22/2014 RECORDED 07/22/20 12 1:06PM BY CATRINA SAMPSON MA, ANNOTATI ON/ADDEN DUM Not Available [facility] 4 03:36:15 Tubercul osis screenin g Completed 201104/22/2014 RECORDED 07/20/20 12 9:20AM BY AMY DANGELO I, HISTORIC AL SUMMARY Not Available [facility] 4 03:36:15 Mammogra phy abnormal 284426718 Active OTONIEL Ramos [address] [facility] [address] [facility], [place], [address] , [facility] 5 18:58:13 Acute bronchit is 23224581 Completed 201103/29/2014 RECORDED 06/25/20 12 9:16AM BY CATRINA SAMPSON MA, ANNOTVERNON ON/ADDEN DUM Not Available [facility] 4 13:54:06 Joint pain 43322357 Active OTONIEL Ramos [address] [facility] [address] [facility], [place], [address] , [facility] 5 18:58:13 Patient status finding 815285161 Active OTONIEL Ramos [address] [address], [place], [address] , [facility] 5 18:58:13 Screenin g for malignan t neoplasm of breast Completed 201103/29/2014 RECORDED 06/25/20 12 9:16AM BY CATRINA SAMPSON MA, ANNOTATI ON/ADDEN DUM Not Available [facility] 4 13:54:06 Bunion 716961014 Active Paul Madison, [facility] [address] [facility] [address], [place], [address] , [facility] 5 18:58:13 Screenin g for malignan t neoplasm of cervix Active Paul Madison, [facility] [address] [facility] [address], [place], [address] , [facility] 5 18:58:13 Screenin g for malignan t neoplasm of colon Active Paul Madison, [facility] [address] [facility] [address], [place], [address] , [facility] 5 18:58:13 Screenin g for malignan t neoplasm of colon Completed 201203/29/2014 RECORDED 01/14/20 13 1:53PM BY NHI GUADALUPE MA, PHONE ENCOUNTE R Not Available [facility] 4 13:54:07 Conjunct ivitis 4910307 Completed 201103/29/2014 RECORDED 06/25/20 12 9:16AM BY CATRINA SAMPSON MA, ANNOTATI ON/ADDEN DUM Not Available [facility] 4 13:54:07 Divertic ulitis of colon 053297117 Active Paul Madison, [facility] [address] [facility] [address], [place], [address] , [facility] 5 18:58:13 Dysphagi a 92233475 Completed 201103/29/2014 RECORDED 06/25/20 12 9:16AM BY CATRINA SAMPSON MA, ANNOTATI ON/ADDEN DUM Not Available [facility] 4 13:54:07 Respirat ory finding 756942791 Completed 201103/29/2014 RECORDED 06/25/20 12 9:16AM BY CATRINA SAMPSON MA, ANNOTATI ON/ADDEN DUM Not Available [facility] 4 13:54:07 Dysuria 60950711 Active Paul Madison, [facility] [address] [address], [place], [address] , [facility] 5 18:58:13 Follow-u p encounte r Completed 201103/29/2014 RECORDED 06/25/20 12 9:16AM BY CATRINA SAMPSON MA, ANNOTATI ON/ADDEN DUM Not Available [facility] 4 13:54:07 Herpes zoster 2644047 Active Paul Madison, [facility] [address] [address], [place], [address] , [facility] 5 18:58:13 Uterus finding 958535601 Completed 200106/12/2014 DATE: 2001; STORY: DOES NOT REQUIRE CERVICAL CANCER SCREENIN G; RECORDED 06/25/20 12 9:18AM BY CATRINA SAMPSON MA, OFFICE VISIT Olayinka Leon MD [address] [address], [place], [address] , [facility] 4 13:26:04 Hyperlip idemia 08238348 Active Paul Madison, OTONIEL [address] [address], [place], [address] , [facility] 5 18:58:13 Mammogra phy abnormal 797204031 Completed 201103/29/2014 RECORDED 06/25/20 12 9:16AM BY CATRINA SAMPSON MA, ANNOTATI ON/ADDEN DUM Not Available [facility] 4 13:54:07 Menopaus al symptom 35134366 Active OTONIEL Ramos [address] [facility] [address], [place], [address] , [facility] 5 18:58:13 Migraine 22192048 Active OTONIEL Ramos [address], [place], [address] , [facility] 5 18:58:13 Administ ration of bacteria l and viral vaccine Completed 200903/29/2014 RECORDED 05/30/20 10 3:19PM BY ANAT SMITH , OFFICE VISIT Not Available [facility] 4 13:54:08 Headache disorder 814654757 Completed 201103/29/2014 IMPRESSI ON: UNILATER AL, SEVERE HEADACHE ON THE RIGHT SIDE FOR 2 WEEKS. ASSOCIAT ED WITH RIGHT FACIAL NUMBNESS AND ARM NUMBNESS . R/O ANEURYSM OR MASS.; RECORDED 06/25/20 12 9:16AM BY CATRINA SAMPSON MA, ANNOTATI ON/ADDEN DUM Not Available [facility] 4 13:54:08 Influenz a vaccine needed [id number] 06 Completed 201103/29/2014 RECORDED 06/25/20 12 9:22AM BY CATRINA SAMPSON MA, OFFICE VISIT Not Available [facility] 4 13:54:08 Adult health examinat ion Completed 201103/29/2014 RECORDED 07/22/20 12 1:06PM BY CATRINA SAMPSON MA, ANNOTATI ON/ADDEN DUM Not Available [facility] 4 13:54:08 Tubercul osis screenin g Completed 201103/29/2014 RECORDED 07/20/20 12 9:20AM BY AMY DANGELO I, HISTORIC AL SUMMARY Not Available [facility] 4 13:54:08 Acute pharyngi tis 986292062 Active Olayinka Leon MD [address] [facility] [address], [place], [address] , [facility] 4 08:19:41 Pain in wrist 13226811 Active Olayinka Leon MD [address] [facility] [address], [place], [address] , [facility] 5 14:42:29 Benign paroxysm al position al vertigo 424016940 Active Olayinka Leon MD [address] [facility] [address], [place], [address] , [facility] 5 14:42:29 Poor short-te rm memory 951137021 Active Olayinka Leon MD [address] [facility] [address], [place], [address] , [facility] 5 14:42:29 Problem Notes None recorded. Procedures Surgical History Date Name Laterality Status Provider Name and Address Organization Details Recorded Time 0 Hysterectomy completed [facility] 06/08/2014 08:33:37 Appendectomy completed [facility] 06/08/2014 08:33:37 Tubal Ligation completed [facility] 06/08/2014 08:33:37 Imaging Results Imaging Date Name Status LastModified by Organiz ation Details LastModified Time 07/03/2010 MAMMO, screening, digital, bilateral completed build [facility] (Centralized Electronic Ordering - All Locations) Patient Can Go To The Location Of Their Choice, [id number] 08/23/2015 04:10:25 01/02/2011 MAMMO, diagnostic, digital, unilateral completed build [facility] (Centralized Electronic Ordering - All Locations) Patient Can Go To The Location Of Their Choice, [id number] 08/23/2015 04:10:25 11/06/2011 MAMMO, screening, digital, bilateral completed build [facility] (Centralized Electronic Ordering - All Locations) Patient Can Go To The Location Of Their Choice, [id number] 08/23/2015 04:10:25 08/13/2013 MAMMO, screening, digital, bilateral completed build [facility] (Centralized Electronic Ordering - All Locations) Patient Can Go To The Location Of Their Choice, [id number] 08/23/2015 04:10:25 08/19/2013 MAMMO, diagnostic, digital, unilateral completed build [facility] (Centralized Electronic Ordering - All Locations) Patient Can Go To The Location Of Their Choice, [id number] 08/23/2015 04:10:25 08/19/2013 US breast right completed build [facility] (Centralized Electronic Ordering - All Locations) Patient Can Go To The Location Of Their Choice, [id number] 08/23/2015 04:10:25 03/06/2014 US breast right completed build [facility] (Centralized Electronic Ordering - All Locations) Patient Can Go To The Location Of Their Choice, [id number] 08/23/2015 04:10:25 03/06/2014 MAMMO, diagnostic, digital, unilateral completed build [facility] (Centralized Electronic Ordering - All Locations) Patient Can Go To The Location Of Their Choice, [id number] 08/23/2015 04:10:25 08/19/2013 MAMMO, diagnostic, digital, unilateral completed build [facility] (Centralized Electronic Ordering - All Locations) Patient Can Go To The Location Of Their Choice, [id number] 08/23/2015 04:10:25 08/19/2013 US breast right completed build [facility] (Centralized Electronic Ordering - All Locations) Patient Can Go To The Location Of Their Choice, [id number] 08/23/2015 04:10:25 03/01/2014 US breast right completed build [facility] (Centralized Electronic Ordering - All Locations) Patient Can Go To The Location Of Their Choice, [id number] 08/23/2015 04:10:25 03/06/2014 US breast right completed build [facility] (Centralized Electronic Ordering - All Locations) Patient Can Go To The Location Of Their Choice, [id number] 08/23/2015 04:10:25 03/06/2014 MAMMO, diagnostic, digital, unilateral completed build [facility] (Centralized Electronic Ordering - All Locations) Patient Can Go To The Location Of Their Choice, [id number] 08/23/2015 04:10:25 Procedure Notes None recorded. Medical Equipment None Reported. Allergies Allergen ID Allergen Name Allergen Category Reaction Reaction Severity Criticality Documentation Date Start Date Code Code System Note Provider Name and Address Organization Details Recorded Time 1072 Demerol medicatio n Not available Not available Not available 03/29/2014 05219 1 RxNorm OTONIEL Ramos [address] [facility] [address], [place], [address], [facility] 5 18:58:13 1073 Product containin g penicilli n (product) medicatio n Not available Not available Not available 03/29/2014 31767 8001 SNOMED JanOTONIEL Fang [address] [facility] [address], [place], [address], [facility] 5 18:58:13 Medications Name Sig Start Date Stop Date Status Note LastModified by Organization Details LastModified Time prednison e 10 mg tablet SEE TAPER BELOW 02/24 completed RECORDED 03/08/20 09 12:13PM BY OLAYINKA LEON MD, [facility] ON AUTO-ALONZO CTIVATIO N;TAKE 3QD FOR 3 DAYS, THEN 2 QD FOR 3 DAYS, THEN 1 QD FOR 3 DAYS. (9D, TOTAL=18 ) Not Available Not Available Not Available azithromy anthony 250 mg tablet TAKE 2 TABLETS (500 MG) BY ORAL ROUTE ONCE DAILY FOR 1 DAY THEN 1 TABLET (250 MG) BY ORAL ROUTE ONCE DAILY FOR 4 DAYS 2013 active Not Available Not Available Not Avai lable benzonata te 200 mg capsule TID 12/12 completed RECORDED 01/28/20 08 12:59PM BY JACY CARVER, MEDICATI ON AUTO-ALONZO CTIVATIO N; Not Available Not Available Not Available almotript an malate 12.5 mg tablet AT ONSET OF HEADACHE ; MAY REPEAT AFTER 2 HOURS IF 06/25 completed RECORDED 06/25/20 12 9:20AM BY CATRINA SAMPSON MA, OFFICE VISIT; Not Available Not Available Not Available ciproflox acin 500 mg tablet TWO TIMES DAILY 06/09 completed RECORDED 06/21/20 10 2:22PM BY OLAYINKA LEON MD, MEDICATI ON AUTO-ALONZO CTIVATIO N; Not Available Not Available Not Available famciclov ir 500 mg tablet TID 03/20 completed RECORDED 08/16/20 09 2:06PM BY RY GILMORE PA-C, MEDICATI ON AUTO-ALONZO CTIVATIO N; Not Available Not Available Not Available amitripty line 10 mg tablet Take 3 tablets every day by oral route at bedtime. 2013 active Not Available Not Available Not Avai lable prednison e 50 mg tablet DAILY 06/18 completed RECORDED 06/18/20 11 9:09AM BY HECTOR TEIXEIRA PA-C, [facility]-ALONZO CTIVATIO N; Not Available Not Available Not Available polymyxin B sulfate 10,000 unit-trim ethoprim 1 mg/mL eye drops QID 02/13 completed RECORDED 05/29/20 10 11:27AM BY ZEFERINO MOSS, [facility] AUTO-ALONZO CTIVATIO N; Not Available Not Available Not Available albuterol (refill) 90 mcg/actua tion aerosol inhaler Q 4HR/PRN 01/01 completed RECORDED 01/28/20 08 12:59PM BY JACY CARVER, [facility] ON AUTO-ALONZO CTIVATIO N; Not Available Not Available Not Available Asmanex Twisthale r 220 mcg/actua tion(60 doses) breath activated inhalr BID 02/15 completed RECORDED 02/18/20 09 6:40AM BY BEE SAMPSON, OFFICE VISIT; Not Available Not Available Not Available Flonase Q NARES QAM 02/15 completed RECORDED 02/18/20 09 6:40AM BY BEE SAMPSON, OFFICE VISIT; Not Available Not Available Not Available Vitals Date Recorded Oxygen saturation Oxygen saturation in Arterial blood by Pulse oximetry Body weight Body temperature Body height Body mass index (BMI) Heart rate Systolic blood pressure Diastolic blood pressure Provider Name and Address Organization Details Last Updated DateTime 4 97 % 97 % 48652.2 6914 g 98 [degF] 157.48 cm 22.3 kg/m2 91 /min 95 mm[Hg] 60 mm[Hg] [facility] 4 10:48:01 Date Recorded Oxygen saturation Oxygen saturation in Arterial blood by Pulse oximetry Body weight Heart rate Body mass index (BMI) Body height Body temperature Systolic blood pressure Diastolic blood pressure Provider Name and Address Organization Details Last Updated DateTime 4 98 % 98 % 16730.3 18367 g 90 /min 22.6 kg/m2 157.48 cm 98 [degF] 116 mm[Hg] 75 mm[Hg] Annabelle Bynum MA [facility] 4 13:19:28 Date Recorded Body temperature Body height Body mass index (BMI) Heart rate Oxygen saturation Oxygen saturation in Arterial blood by Pulse oximetry Body weight Systolic blood pressure Diastolic blood pressure Provider Name and Address Organization Details Last Updated DateTime 5 98 [degF] 157.48 cm 22 kg/m2 86 /min 98 % 98 % 53444.5 04458 g 110 mm[Hg] 70 mm[Hg] Annabelle Bynum MA [facility] 5 16:25:33 Social History Question Answer Notes LastModified by Organizat ion Details LastModified Time Tobacco Smoking Status Former Smoker when she was 31 she smoked for a month Lisset messina [facility] 06/08/2014 10:48:01 What Is Your Level Of Alcohol Consumption? None Information not available 06/08/2014 What Is Your Level Of Caffeine Consumption? Heavy Information not available 06/08/2014 Are You Currently Employed? Yes Information not available 06/08/2014 What Type Of Diet Are You Following? 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 With Others Information not available 06/08/2014 How Many Children Do You Have? 2 Information not available 06/08/2014 Sex: Unknown Functional Status Question Answer Note LastModified by Organization D etails LastModified Time What is your exercise level? Moderate Information not available 06/08/2014 Mental Status None recorded. Family History Relationship Description Onset Age of this Age Resolved Age Notes LastModified by Organization Details LastModified Time Mother Essential hypertension Not available 08:33:37 Mother Depressive disorder Not available 2013 08:33:37 Mother Coronary arterioscler osis Not available 2013 08:33:37 Mother Rheumatoid arthritis Not available 2013 08:33:37 Mother Malignant tumor of cervix Not available 2013 08:33:37 Father Essential hypertension Not available 08:33:37 Father Cerebrovascu lar accident Not available 08:33:37 Father Diabetes mellitus Not available 2013 08:33:37 Medical History No medical history recorded. Gynecological HistoryNo gynecological history recorded. Obstetrics History GPAL:G 0 P 0 0 0 0 Immunizations Vaccine Type Date Status Note Provider Nam e and Address Organization Details Recorded Time Tdap 05/30/2010 completed Not Available [facility] 03/29/2014 13:25:37 Past Encounters Encounter ID Performer Location Encounter Start Date Encounter Closed Date Diagnosis/Indication Diagnosis SNOMED-CT Code Diagnosis ICD10 Code Diagnosis Note [id number] [facility] [address] [facility] [place] [address] 12/03/2007 00:00:00 [id number] auto[facility]Comm erce [address] [facility] [place] [address] 03/07/2008 00:00:00 [id number] auto[facility]Comm erce [address] [facility] [place] [address] 02/15/2009 00:00:00 [id number] auto[facility] er[facility] [address] [facility] [place] [address] 03/10/2009 00:00:00 [id number] auto[facility]Comm erce [address] [facility] [place] [address] 08/16/2009 00:00:00 [id number] auto[facility] er[facility] [address] [facility] [place] [address] 05/30/2010 00:00:00 [id number] auto[facility]Comm er[facility] [address] [facility] [place] [address] 06/13/2011 00:00:00 [id number] auto[facility]Comm erce [address] [facility] [place] [address] 2012 00:00:00 [id number] Annabelle Bynum MA Main Office [address] [facility] [address] [place] [address] 06/08/2014 10:35:32 06/08/2014 11:24:00 Adult health examination 346742988 Migraine 97270423 Screening for malignant neoplasm of colon 388608540 Joint pain 15238329 [id number] Annabelle Bynum MA Main Office [address] [facility] [address] [facility] [address] 08/09/2014 13:06:35 08/09/2014 16:43:46 Acute pharyngitis 950674707 recommend to monitor and wait, could be early peritonsil lar abscess but unlikely, pt want to tx with abx and have agreed, allergy to pcn [id number] Maral Reeves MA Main Office [address] [place] [address] 12/13/2014 16:15:07 12/13/2014 17:27:39 Pain in wrist 93848282 Benign par oxysmal positional vertigo 932204175 Poor short -term memory 821051584 Strong FMH of memory loss. Now with intermitte nt problems with short term memory Health Concerns Section Related Observation LastModified by Organization Detai ls LastModified Time None Recorded Concern Status LastModified by Organization Details LastModified Time None Recorded Advance Directives Directive None Recorded Payers Encounter Date Sequence Insurance Name Policy Number Policy Cm Covered Member ID Cm Member ID Guarantor Name 06/08/2014 1 [facility] ([facility] [id number] Leif Camilo Adler [id number] Sadie Adler 08/09/2014 1 [facility] ([facility]) [id number] Lance Adler [id number] [facility] 12/13/2014 1 [facility] ([facility]) [id number] Lance [facility] [id number] Sadie Adler Notes Date Note Type Note Provider Name and Address Organization Details Recorded Time 06/08/2014 text/html Here for PE visi t. Longstanding symptoms of pain consistent with fibromyalgia without specific treatment. No functionally limiting. Olayinka Leon MD [address] [facility] [address], [place], [address], [facility] 06/12/2014 13:26:20 08/09/2014 text/html Pt complains of left sided sore throat and ear pain, worsening for the past 3 days. It feels like there is something in the back of the throat. No fever, sinus pressure or difficulty swallowing. Olayinka Leon MD [address] [address], [place], [address], [facility] 08/11/2014 08:19:42 12/13/2014 text/html Notes concern about memory loss. Has strong FMH of Alzheimer's dementia. Notes difficulty with short term memory loss. Some word-finding probles. Denies difficulty with disorientation, trouble driving, etc. Able to remember appointments. Olayinka Leon MD [address] [address], [place], [address], [facility] 12/15/2014 14:43:24 OBGyn Episode No OBEpisode recorded.
== END 2024-11-15 18:03 | disposition home or self-care (01) ==
PROVIDERS: PCP Internal Medicine; Visit Provider Internal Medicine
DX: G43.E09 Chronic migraine with aura, not intractable, without status migrainosus (principal); F32.0 Major depressive disorder, single episode, mild; J06.9 Acute upper respiratory infection, unspecified; K21.9 Gastro-esophageal reflux disease without esophagitis

== ENCOUNTER → 2024-11-15 16:34 | Outpatient (BNVA) | payer OTHER, SELFPAY | PROVIDERS: PCP Internal Medicine; Visit Provider Internal Medicine | DX: G43.E09 Chronic migraine with aura, not intractable, without status migrainosus (principal); F32.0 Major depressive disorder, single episode, mild; J06.9 Acute upper respiratory infection, unspecified; K21.9 Gastro-esophageal reflux disease without esophagitis | CPT/HCPCS: 96127; 99212 ==

== ENCOUNTER 2025-04-18 17:10 | Outpatient (AMB) | payer MEDICARE, MEDICAID, SELFPAY ==
[2025-04-18 17:28] VITALS: BP 120/78; BMI 22.5
--- NOTE | 2025-04-18 17:30 | A.OFFVIS_ITS ---
Intake Vital Signs 04/18/25 17:28 Height 5 ft 2 in Weight 123 lb BMI 22.5 BP 120/78 Blood Pressure Location Lt brachial Position Sitting Intake Visit Reasons: AWV Filler Room Attendant Required: No Accompanied by: Self / Same As Patient Allergies peanut (PEANUT) Allergy (Severe, Verified 04/18/25 17:34) RASH amitriptyline (AMITRIPTYLINE) Allergy (Unknown, Verified 04/18/25 17:34) TACHYCARDIA, palpitations, palpitations meperidine (From DEMEROL) Allergy (Unknown, Verified 04/18/25 17:34) FAINTS Penicillins (PENICILLINS) Allergy (Unknown, Verified 04/18/25 17:34) UNK Medication List - Last Reconciled 04/18/25 by Deborah Mclain MD cholecalciferol (vitamin D3) 50 mcg PO DAILY ibuprofen-acetaminophen 125-250 mg (Advil Dual Action) 1 tab PO Q8H PRN meclizine 25 mg PO DAILY PRN 30 days omeprazole 20 mg PO DAILY 90 days topiramate 25 mg PO BID tramadol 50 mg PO BID 30 days HPI HPI Comments History of Present Illness Details The patient is a 64-year-old female presenting for a Medicare wellness exam. She has a history of osteoporosis, as indicated by a bone density test conducted in April 2023, which showed a T-score of -2.6 in the femoral neck. A follow-up bone density test is planned for this year to monitor her condition. The patient also reports experiencing muscle cramps, for which magnesium levels will be assessed. In terms of preventative care, her last Tdap vaccine was administered in August 2025, and her last mammogram in July 2024 was normal. She underwent an endoscopy in 2022 and a colonoscopy in 2017, the latter requiring a repeat due to poor preparation. [facility] handed to patient. [facility] of care reviewed and updated. [facility] Medical History Chronic migraine with aura Syncope and collapse Bleeding hemorrhoids Stenosis of cervical spine region Left lower quadrant abdominal pain Left flank pain Neck pain GERD (gastroesophageal reflux disease) Osteoarthritis Rectal bleeding Chronic constipation Back pain Osteoporosis Vertigo Migraines Surgical History Hx of esophagogastroduodenoscopy Hx of colonoscopy Hx of discectomy S/P [place]IA-BSO History of tubal ligation History of appendectomy Family History Father Diabetes CVD (cardiovascular disease) Stroke Mother CVD (cardiovascular disease) Hypertension Cervical cancer Lung cancer Maternal Aunt Cancer Maternal Uncle Cancer Sister Breast cancer Other Family history of lupus erythematosus Social History Household Members: Spouse Housing: House Are you a primary care mgr to a significant other at home: No Do you presently have visiting nurse or other home services: No Alcohol intake: never Patient Tobacco Use Status: Never used Tobacco e-Cigarette/Vaping Use: Never Used Second Hand Smoke Exposure: Yes service: No Current occupational status: unemployed Current occupation: Phelebotomist Cognitive needs: No Hearing needs: No Vision needs: Yes Questionnaire Medicare Wellness Checkup What gender do you identify with?: female During the past 4 weeks, how much have you been bothered by emotional problems such as feeling anxious, depressed, irritable, sad or downhearted, and blue?: not at all During the past 4 weeks, has your physical & emotional health limited your social activities with family, friends, neighbors, or groups?: not at all During the past 4 weeks, how much bodily pain have you generally had?: severe pain During the past 4 weeks, was someone available to help you if you needed & wanted help?: yes, as much as I wanted During the past 4 weeks, what was the hardest physical activity you could do for at least 2 minutes?: moderate Can you get to places out of walking distance without help? (For eg., can you travel alone on buses, taxis or drive your car?): Yes Can you go shopping for groceries or clothes without someone's help?: Yes Can you prepare your own meals?: Yes Can you do your housework without help?: Yes Because of any health problems, do you need the help of another person with your personal care needs such as eating, bathing, dressing or getting around the house?: No Can you handle your own money without help?: Yes During the past 4 weeks, how would you rate your health in general?: very good During the past 4 weeks how have things been going for you?: good & bad parts about equal Are you having difficulties driving your car?: no Do you always fasten your seat belt when you are in a car?: yes, usually Have you fallen 2 or more times in the past year?: No Are you afraid of falling?: No Are you a smoker?: no During the past 4 weeks, how many drinks of wine, beer, or other alcoholic beverages did you have?: no alcohol at all Do you exercise for about 20 minutes 3 or more times a week?: yes, some of the time Have you been given information to help with the following?: no: Hazards in your house that might hurt you? and no: Keeping track of your medications? How often do you have trouble taking medicines the way you have been told to take them?: I always take medicine as prescribed How confident are you that you can control & manage most of your health problems?: very confident What is your race?: or origin or descent Mini Mental State Exam (MMSE) Orientation What is the (year) (season) (date) (day) (month)?: year, season, date, day and month Where are we (state) (county) (town or city) (hospital) (floor)?: state, county, town or city, hospital/clinic and floor Registration Name of 3 unrelated objects clearly and slowly, then ask patient to repeat all 3 of them. (1st repeat determines score. Make sure they can repeat all three): object 1, object 2 and object 3 Attention & Calculation (CHOOSE ONE) Spell WORLD backwards (DLROW): 5 letters Recall Ask patient to repeat the 3 items from question #3.: object 1, object 2 and object 3 Language Show patient a wristwatch & ask what it is. Repeat for pencil.: watch and pencil Ask the patient to repeat the phrase 'No ifs, ands, or buts' after you.: correct Ask the patient to 'take a piece of paper with their right hand' 'fold paper in half' 'place paper on floor': take paper in right hand, fold paper in half and place paper on floor Print the sentence 'CLOSE YOUR EYES' on a piece. If patient actually closes eyes then score.: followed written direction Give patient a blank piece of paper & ask to write a sentence. Score if it contains a noun & verb.: sentence contains subject and verb Score Score: 29 Activity of Daily Living Bathing - sponge bath, tub bath or shower: receives no assistance (gets in/out by self, if usual bathing means Dressing - getting clothes from closets & drawers, including inner/outer garments & fasteners.: gets clothes & gets completely dressed without help Toileting - going to the 'toilet room' for urine/bowel elimination & cleaning self/arranging clothes: goes to toilet room, cleans self, arranges clothes without help Transfer: moves in & out of bed and chair without help (may use support object) Continence: has occasional 'accidents' Feeding: feeds self without help Total Score: 0 Information obtained from: patient Using telephone: independent Traveling: independent Shopping: independent Preparing meals: independent Housework: independent Taking medicine: independent Managing money: independent PHQ-9 Over the last 2 weeks, how often have you been bothered by any of the following problems? 1. Little interest or pleasure in doing things: not at all 2. Feeling down, depressed, or hopeless: not at all 3. Trouble falling or staying asleep, or sleeping too much: not at all 4. Feeling tired or having little energy: several days 5. Poor appetite or overeating: not at all 6. Feeling bad about yourself - or that you are a failure or have let yourself or your family down: not at all 7. Trouble concentrating on things, such as reading the newspaper or watching television: not at all 8. Moving or speaking so slowly that other people could have noticed. Or the opposite - being so fidgety or restless that you have been moving around a lot more than usual: not at all 9. Thoughts that you would be better off or of hurting yourself in some way: not at all Total score: 1 Depression Screening Interpretation: Negative Depression Screening Done: Yes 02595 - PHQ-9 Billing: Yes Source: Developed by Drs. Anton Ivy, Hodan Elizalde, Enrico Souza and colleagues, with an educational renae from [employer]. AUDIT C Alcohol Use Questionnaire (AUDIT-C) 1. How often do you have a drink containing alcohol?: Never Total Score: 0 DIMITRY-7 AMB Questionnaire DIMITRY-7 Date DIMITRY - 7 assessed: 04/18/25 Feeling nervous, anxious, or on edge: 0 = Not at all Not being able to stop or control worryin = Not at all Worrying too much about different things: 0 = Not at all Trouble relaxin = Not at all Being so restless that it is hard to sit still: 0 = Not at all Becoming easily annoyed or irritable: 0 = Not at all Feeling afraid as if something awful might happen: 0 = Not at all Total DIMITRY-7 score (0-4 normal; 5-9 mild; 10-14 moderate; 15-21 severe): 0 Source: Developed by Drs. Anton Ivy, Hodan Elizadle, Enrico Souza and colleagues, with an educational renae from [employer]. DIMITRY-7 Assessment Billing DIMITRY-7 Assessment Tool: DIMITRY-7 Assessment 02439 Thrive Questionnaire Date Thrive assessed: 04/18/25 I am a: Patient What is your living situation today?: I have a steady place to live Within the past 12 months, did the food you bought not last and you didn't have the money to get more?: I choose not to answer this question Within the past 12 months, did you worry whether your food would run out before you got money to buy more?: I choose not to answer this question Do you have trouble paying for medicines?: I choose not to answer this question Do you have trouble getting transportation to medical appointments?: I choose not to answer this question Do you have trouble paying your heating and electricity bill?: I choose not to answer this question Do you have trouble taking care of your child, family member or friend?: I choose not to answer this question Do you have trouble with day-to-day activities such as bathing, preparing meals, shopping, managing finances, etc.?: I choose not to answer this question Are you currently unemployed and looking for a job?: No Are you interested in more education?: No Please select the resources that you would like help with: None Currently or been in a relationship where the following occur: I choose not to answer THRIVE Score: 0 Review of Systems Const All systems reviewed & are unremarkable except as noted in HPI and below ENT Denies change in voice, Denies nasal discharge and Denies sinus pain Card Denies chest pain at rest, Denies chest pain with activity, Denies edema, Denies irregular heart rhythm, Denies claudication, Denies dyspnea, Denies dyspnea on exertion, Denies orthopnea, Denies paroxysmal nocturnal dyspnea and Denies slow heart rate Resp Denies cough, Denies dyspnea and Denies dyspnea on exertion Musc Denies abnormal gait, Denies atrophy, Denies deformity and Denies limited range of motion Skin/Breast Denies bleeding lesions, Denies changing lesions and Denies rash Neuro Denies abnormal gait and Denies lack of coordination Physical Exam Vital Signs: Last Vital Signs BP 120/78 04/18/25 17:28 BMI result Body Mass Index 22.5 Const Orientation/consciousness: patient oriented x3 Resp Effort & Inspection: normal respiratory effort Auscultation: clear to auscultation bilaterally Cardio Jugular venous distension: no JVD Rate: regular rate Rhythm: regular rhythm Heart sounds: S1 normal heart sound present and S2 normal heart sound present Neuro General: patient oriented x3 and no focal motor deficits Romberg Test: Negative Extrem General: Yes full ROM Psych Appearance: grossly normal Assessment & Plan Assessment & Plan (1) Encounter for Medicare annual wellness exam: Code(s): Z00.00 - Encounter for general adult medical examination without abnormal findings (2) Muscle cramps: Code(s): R25.2 - Cramp and spasm Plan A follow-up bone density test will be ordered to monitor the patient's osteoporosis. Magnesium levels will be assessed to address the patient's muscle cramps. The patient will be referred for a repeat colonoscopy due to poor preparation in the previous procedure. Patient was informed and verbally consented to the use of an ambient scribe for clinic note documentation during this visit. Orders: Orders Magnesium Today R25.2 - Cramp and spasm Vitamin D 25-OH Total Today E55.9 - Vitamin D deficiency, unspecified Comprehensive [place]. Panel Fast Today G43.E09 - Chronic migraine with aura, not intractable, without status migrainosus XR DEXA axial skeleton Today Z78.0 - Asymptomatic menopausal state Referrals Open Access Screening Colonoscopy Referral Z12.12 - Encounter for screening for malignant neoplasm of rectum Medications: Refilled meclizine 25 mg PO DAILY PRN 30 tabs 0RF dizziness 30 days tramadol 50 mg PO BID 60 tabs 0RF Pain 30 days Quality Reporting (2019) Depression/Bipolar (159/160/161/177) PHQ-9: Total score: 1 Coding Level of Care Code Medicare First (G0438) Est Pt Level 3 (95683) Diagnoses Encounter for Medicare annual wellness exam Z00.00 Muscle cramps R25.2 Additional Codes PHQ-9 - 13693 - PHQ-9 Billing: Yes ([id number]) DIMITRY-7 Assessment Billing - DIMITRY-7 Assessment Tool: DIMITRY-7 Assessment 67199 ([id number]) Time Spent (min) 35 Advance Care Planning Advance Care Planning discussion: Exists, not on file Date of discussion: 04/18/25 Who was present: Patient and me Forms completed: Health Care Proxy
== END 2025-04-18 17:59 | disposition home or self-care (01) ==
LOC: HO.HMCH 17:11
PROVIDERS: PCP Internal Medicine; Visit Provider Internal Medicine
DX: Z00.00 Encounter for general adult medical examination without abnormal findings (principal); R25.2 Cramp and spasm

== ENCOUNTER → 2025-04-18 17:10 | Outpatient (BNVA) | payer MEDICARE, MEDICAID, SELFPAY | PROVIDERS: PCP Internal Medicine; Visit Provider Internal Medicine | DX: Z00.01 Encounter for general adult medical examination with abnormal findings (principal); R25.2 Cramp and spasm; M81.0 Age-related osteoporosis without current pathological fracture | CPT/HCPCS: 96127; 99212 ==

== ENCOUNTER 2025-04-23 10:05 | Outpatient (REF) | payer MEDICARE, MEDICAID, SELFPAY ==
[2025-04-23 10:12] LABS: MANUAL DIFF FLAG NO
[2025-04-23 10:59] LABS: Hematocrit 45.5 % (37.0-47.0); Hemoglobin 14.7 g/dl (12.0-16.0); Imm Gran Abs Auto 0.02 X10*3/uL (0.00-0.03); Imm Gran Pct Auto 0.3 % (0.0-0.4); Lymphocytes Absolute Auto 2.8 X10*3/uL (1.2-4.9); Mean Corpuscular HGB Conc 32.3 g/dl (31.0-35.0); Mean Corpuscular Hemoglobin 30.1 pg (27.0-33.0); Mean Corpuscular Volume 93.2 fL (80.0-98.0); NRBC Abs Auto 0.000 X10*3/uL (0.0-0.012); NRBC Pct Auto 0.0 /100WBC (0.0-0.2); Platelet Count 311 X10*3/uL (160-400); Red Blood Count 4.88 X10*6/uL (4.20-5.50); White Blood Count 6.9 X10*3/uL (4.8-10.8)
[2025-04-23 11:38] LABS: Alanine Aminotransferase 27 U/L (0-31); Albumin Level 4.4 g/dL (3.5-5.0); Alkaline Phosphatase 117 U/L (39-117); Anion Gap 12 (12-20); Aspartate Amino Transferase 27 U/L (5-31); Blood Urea Nitrogen 13 mg/dL (9-16); Calcium 9.3 mg/dL (8.4-10.2); Carbon Dioxide 30 mmol/L (22-29); Chloride 106 mmol/L (96-108); Cholesterol 233 mg/dL (<200); Estimated Glomerular Filt Rate > 60; HDL Cholesterol 53 mg/dL (>40); Magnesium 2.4 mg/dL (1.6-2.6); Potassium 4.5 mmol/L (3.3-5.1); Sodium 143 mmol/L (135-145); Total Protein 7.2 g/dL (6.5-8.0); Triglycerides 102 mg/dL (<150)
== END 2025-04-23 10:06 | disposition home or self-care (01) ==
LOC: HO.LAB 10:05
PROVIDERS: PCP Internal Medicine; Visit Provider Internal Medicine
DX: G43.E09 Chronic migraine with aura, not intractable, without status migrainosus (principal); R25.2 Cramp and spasm; E78.5 Hyperlipidemia, unspecified; E55.9 Vitamin D deficiency, unspecified
CPT/HCPCS: 36415; 80053; 80061; 82306; 83735; 85025

== ENCOUNTER 2025-05-23 07:45 | Outpatient (REF) | payer MEDICARE, MEDICAID, SELFPAY ==
--- NOTE | ~2025-05-23 | MM_ITS ---
EXAMINATION: DXA BONE DENSITY AXIAL HISTORY: Z78.0 - Asymptomatic menopausal state TECHNIQUE: [employer] Dual energy absorptiometry (DEXA) of the lumbar spine, total left hip, and femoral neck was performed. COMPARISON: Comparison is made with the prior examination dated 04/22/2023. FINDINGS: The bone mineral density of the lumbar spine is 0.967 g/cm2, corresponding to a T-score of -1.8, and a Z-score of 0.0. This is indicative of osteopenia. This represents a BMD change of 2.7% compared to the prior exam. This is not statistically significant. The bone mineral density of the left total hip is 0.711 g/cm2, corresponding to a T-score of -2.4, and a Z-score of -1.0. This is indicative of osteopenia. This represents a BMD change of 0.7% compared to the prior exam. This is not statistically significant. The bone mineral density of the left femoral neck is 0.688 g/cm2, corresponding to a T-score of -2.5, and a Z-score of -0.9. This is indicative of osteoporosis. This represents a BMD change of 2.5% compared to the prior exam. MM/XR DEXA axial skeleton IMPRESSION: Based on bone mineral density, and according to World Health Organization (WHO) criteria, the diagnosis is consistent with osteoporosis. Statistically, 68% of repeat scans fall within 1 SD (+/- 0.010 g/cm2 for AP spine L1-L4) and 1 SD (+/- 0.012 g/cm2 for femur total) FRAX is a trademark of the [employer] [place] [facility] [employer], a World Health Organization (WHO) Collaborating Center. Electronically signed by: Anton Cyr MD 05/23/2025 08:50 AM EDT
== END 2025-05-23 07:46 | disposition home or self-care (01) ==
LOC: HO.MAMMO 07:45
PROVIDERS: PCP Internal Medicine; Visit Provider Internal Medicine
DX: Z13.820 Encounter for screening for osteoporosis (principal); Z78.0 Asymptomatic menopausal state
CPT/HCPCS: 77080

== ENCOUNTER → 2025-05-23 08:15 | Outpatient (BNV) | payer MEDICARE, MEDICAID, SELFPAY | PROVIDERS: PCP Internal Medicine; Visit Provider Radiology Diagnostic Radiology | DX: E28.39 Other primary ovarian failure (principal) | CPT/HCPCS: 77080 ==

== ENCOUNTER 2025-08-06 08:22 | Outpatient (REF) | payer MEDICARE, MEDICAID, SELFPAY ==
--- NOTE | ~2025-08-06 | MM_ITS ---
EXAMINATION: MM SCREENING DIGITAL BREAST TOMOSYNTHESIS, BILATERAL CLINICAL INFORMATION: Screening. Asymptomatic. COMPARISON: Comparison made to multiple prior, most recent July 31, 2024, and most remote May 18, 2016. TECHNIQUE: Digital breast tomosynthesis is performed in mediolateral oblique and craniocaudal views along with computer-aided detection (CAD). Synthesized 2D images are generated from the tomosynthesis. FINDINGS: BREAST COMPOSITION: The breasts are heterogeneously dense, which may obscure small masses. BILATERAL BREASTS: No significant masses, suspicious calcifications or other abnormalities are seen in either breast. MM/MM tomosynthesis screening BI IMPRESSION: BILATERAL BREASTS: Negative, no mammographic evidence of malignancy. Normal interval follow-up is recommended in 12 months. ASSESSMENT: BI-RADS: Category 1: Negative RECOMMENDATION: Routine annual mammography screening. FOLLOW-UP: 1 year F/U This examination should not preclude the clinical evaluation of a suspicious palpable abnormality. This patient's information was entered into a reminder system with a target due date for their next mammogram. Electronically signed by: Antoine Ibrahim MD 08/08/2025 07:32 PM [facility] [place]
--- OUTSIDE RECORDS SUMMARY | 2025-08-06 08:24 | XMS_ITS | Data Portability ---
Author Organization [facility], Main Office Address [address] [facility] [address] [place] [id number] Care Team Providers Care Condenser Tube Tender Name Role Phone OLAYINKA LEON Primary Care Provider Assessment Encounter Date Assessment [...] al 2014 015 NICO Mathis MD, [facility] [place] [address], [place], [address], 5 21:39:05 neurop sychol ogist referr al 2014 015 bsolivanmakenneth Nioñ, [address] [place], [address], 5 13:38:10 physic al therap ist referr al 2014 [facility]15 [facility], [address] [place], [address], 5 10:18:19 gastro entero logist referr al 2013 014 arnulfojacob Benítez MD, [address], [address], 4 14:49:47 Procedures None record ed. Surgeries None record ed. Imaging x-ray, wrist, 2 views - 2 mos pain in left wrist after injury winsome hong 2014 015 [facility], [address] [place] [address], [address], 5 09:03:21 Medication Orders azithr omycin 250 mg tablet [id number] [facility], [address] [place] [address], [address], 5 16:25:47 amitri ptylin e 10 mg tablet [id number] [facility], [address] [place] [address], [address], 5 16:25:47 Patient TargetsNo targets recorded. Patient Instructions Encounter Date Encounter Id Patient Instructions Last Modified By Organization Details Last Modified Time 06/08/[id number] joint pain: care instructions regis Not available 06/14/2014 08:07:02 exercise program : [...] josé antonio Not available 06/12/2014 13:25:30 08/09/2014 [id number] Recommend supportive treatment including rest, hydration, ibuprofen as directed prn. Return to office is persistent or worsening symptoms. I have reviewed the note and agree with the assessment and plan of care. festus [facility] Not available 08/11/2014 08:19:41 12/13/2014 [id number] benign paroxysma l positional vertigo (bppv): care instructions [facility] Not available 12/15/2014 14:42:30 Reason for Referral Referring Physician: Olayinka hernandez, Internal Medicine, Encounter Date: 06/08/2014 Hand Surgeon Referral for Pa in of wrist region Referring Physician: Olayinka Leon, Internal Medicine, Encounter [...] decrea sing sensit ivity. In the far psychiatric aide ior medial right breast on cranio caudal view and on the psychiatric aide ior edge of the film in the [...] of the right breast accent uating the psychiatric aide ior medial aspect on the cranio caudal view and the far psychiatric aide ior aspect of the breast on the [...] Go To The Location Of Their Choice, [id number] 08/23/2015 04:10:25 08/01/20 14 01/02/2011 MAMMO , [...] spot cc view. The area in the psychiatric aide ior breast on the MLO projec tion also does not persis t. There are no domina nt masses , areas of distor tion or suspic ious cluste rs of microc alcifi cation in the right breast . Impres daniel: No radiog raphic eviden ce of malign armin. Hetero geneou sly dense tissue as before . Unless otherw ise [facility]a [facility] ally, the markus maya will be due for bilate ral screen [...] Date/T harriet: 4:36 pm Birads : 2-Reyes Patien t Class: Outpat ient build [facility] (Centralized Electronic Ordering - All Locations) Patient Can Go To The Location Of Their Choice, [id number] 08/23/2015 04:10:25 08/01/20 14 11/06/2011 MAMMO , [...] 1-Nega tive L3 letter mailed to markus t Dictat ed By: Chalino Chavez MD Dictat [...] Go To The Location Of Their Choice, [id number] 08/23/2015 04:10:25 08/01/20 14 08/13/2013 MAMMO , scree dara, digit al, bilat eral Final Result Name: DENICE ADLER 7 Sex: F : 1959 Locati on: F Admitt ing Physic quan: Jessica tovarg Physic quan: Olayinka hernandez Exam: DIGITA L [...] be necess maryann. We will recall the markus t to have additi onal imagin g perfor med. BI-RAD S 0 (Incom plete, needs additi onal imagin g evalua tion) Lay letter mailed to markus maya. Comput er-aid ed detect ion (CAD) was used in the interp retati on of this study. Interp reted by: Preet wakefield MD, Erinn Plasencia WSN: RII-MARIA INES S-RAD5 Interp reting Radiol ogist: Erinn wakefield Attend ing Radiol ogist: Erinn wakefield Finali zing Radiol ogist: Erinn wakefield Transc ribed Date: Finali zed Date: 2012 09:40 Dictat ed By: Erinn Jeffery MD Dictat ed Date/T harriet: 9:41 am Review ed By: Erinn Jeffery MD Signed By: Erinn Jeffery MD Signed Date/T harriet: 9:41 am Transc ribed By: TR Transc riptio n Date/T harriet: 9:41 am Birads : Patien t Class: Outpat ient build [facility] (Centralized Electronic Ordering - All Locations) Patient Can Go To The Location Of Their Choice, [id number] 08/23/2015 04:10:25 08/01/20 14 08/19/2013 MAMMO , [...] seen on mammog gaye. There is no application development intern al color- flow. IMPRES DANIEL:T he [...] benign ) Lay letter mailed to markus maya Interp reted by: Preet wakefield MD, Mae Mae WSN: YOEL S-RAD1 Interp reting Radiol ogist: [...] Go To The Location Of Their Choice, [id number] 08/23/2015 04:10:25 08/01/20 14 08/19/2013 US breas [...] Go To The Location Of Their Choice, [id number] 08/23/2015 04:10:25 08/01/20 14 03/06/2014 US breas t right Final Result Name DORY Browning 7 Sex F 10 1959 Locati on F Admitt ing Physic quan Reques ting Physic quan Oalyinka Nicola h Exam US-CATHERINE AST UNILAT RIGHT 03 07 2014 10 27 Please see report for diagno stic right mammog gaye perfor med on the same day. WSN RII-WA S-RAD7 01 Interp reting Radiol ogist Melany siegel MD Attend ing Radiol ogist Melany siegel MD Finali zing Radiol ogist Melnay siegel MD Transc ribed Date 03 07 [...] Go To The Location Of Their Choice, [id number] 08/23/2015 04:10:25 08/01/20 14 03/06/2014 MAMMO , [...] Melany Baeza MD, V Signed Date/T harriet: 06/23/ 14 1:15 pm Transc ribed By: TR Transc riptio n Date/T harriet: 1:15 pm Birads : Markus maya Class: Outpat ient build [facility] (Centralized Electronic Ordering - All Locations) Patient Can Go To The Location Of Their Choice, [id number] 08/23/2015 04:10:25 08/19/20 14 08/19/2013 MAMMO , diagn ostic , digit al, unila teral A D D E N D U M as of: [id number] Final Result Name DORY Browning 7 [...] seen on mammog gaye. There is no application development intern al color- flow. IMPRES DANIEL The [...] mailed to markus Torrez reted by Preet DIALLO S-RAD1 Interp reting Radiol ogist Erinn wakefield [...] Go To The Location Of Their Choice, [id number] 08/23/2015 04:10:25 08/19/20 14 08/19/2013 US breas t right A D D E N D U M as of: [id number] Final Result Name DORY Browning 7 Sex F 10 1959 Locati on F Admitt ing Physic quan Reques ting Physic quan Olayinka Nicola h Exam US-CATHERINE AST UNILAT RIGHT 08 20 2013 09 52 Please see right breast diagno stic mammog gaye report from the same day. Interp reted by Preet Plasencia WSN RII-WA S-RAD1 Interp reting Radiol ogist Erinn [...] Go To The Location Of Their Choice, [id number] 08/23/2015 04:10:25 08/19/20 14 03/01/2014 US breas [...] cious) Lay letter mailed to markus maya WSN RII-WA S-RAD7 01 Interp reting Radiol ogist Hever Rico MD Attend ing Radiol ogist Hever Rico MD Finali zing Radiol ogist Hever Rico MD Transc ribed Date 03 01 2014 10 20 Finali zed Date 03 01 2014 10 20 Dictat ed By: Hever Rico MD Dictat ed Date/T harriet: 10:23 a Review ed By: Hever Rico MD Signed By: Hever Rcio MD Signed Date/T harriet: 10:23 am Transc ribed By: ALLISON Transc ribed Date/T harriet: 10:23 am Markus maya Class: Outpat ient build [facility] (Centralized Electronic Ordering - All Locations) Patient Can Go To The Location Of Their Choice, [id number] 08/23/2015 04:10:25 08/19/20 14 03/06/2014 US breas [...] Go To The Location Of Their Choice, [id number] 08/23/2015 04:10:25 08/19/20 14 03/06/2014 MAMMO , [...] harriet: 1:15 pm Transc ribed By: ALLISON Transc riptio n Date/T harriet: 1:15 pm Birads : Patien t Class: Outpat ient build [facility] (Centralized Electronic Ordering - All Locations) Patient Can Go To The Location Of Their Choice, [id number] 08/23/2015 04:10:25 Result Notes None recorded. Problems Name Problem SNOMED Code Status Onset Date Resolution Date Notes Provider Name and Address Organization Details Recorded Time Urinary tract infectio us disease [id number] OTONIEL Barrera [address] [address], [place], [address] , [facility] 5 18:58:13 Mammogra phy abnormal 516751805 OTONIEL Barrera [address] [address], [place], [address] , [facility] 5 18:58:13 Pain of joint 75517070 Active OTONIEL Ramos [address] [place] [address], [place], [address] , [facility] 5 18:58:13 Patient status finding [id number] OTONIEL Barrera [address] [place] [address], [place], [address] , [facility] 5 18:58:13 Bunion [id number] OTONIEL Barrera [address] [place] [address], [place], [address] , [facility] 5 18:58:13 Screenin g for malignan t neoplasm of cervix Active OTONIEL Ramos [facility] [address], [place], [address] , [facility] 5 18:58:13 Screenin g for malignan t neoplasm of colon Active OTONIEL Ramos [address] [address], [place], [address] , [facility] 5 18:58:13 Divertic ulitis of colon 992315201 KRISSY BarreraUP [address] [address], [place], [address] , [facility] 5 18:58:13 Dysuria 78698974 Active Paul Madison, [address] [address], [place], [address] , [facility] 5 18:58:13 Herpes zoster 0029454 Active Paul Madison, [address] [address], [place], [address] , [facility] 5 18:58:13 Hyperlip idemia 61035599 Active Paul Madison, [address] [address], [place], [address] , [facility] 5 18:58:13 Menopaus al symptom 02143883 Active Paul Madison, [address] [address], [place], [address] , [facility] 5 18:58:13 Migraine 96266396 Active Paul Madison, [address] [address], [place], [address] , [facility] 5 18:58:13 Acute pharyngi tis 731884786 Active Olayinka Leon MD [facility] [address], [place], [address] , [facility] 4 08:19:41 Pain of wrist region 99380424 Active Olayinka Leon MD [facility] [address], [place], [address] , [facility] 5 14:42:29 Benign paroxysm al position al vertigo 611516128 Active Olayinka Leon MD [address] [address], [place], [address] , [facility] 5 14:42:29 Poor short-te rm memory 557654181 Active Olayinka Leon MD [facility] [address], [place], [address] , [facility] 5 14:42:29 Uterus finding Completed 200106/12/2014 DATE: 2001; STORY: DOES NOT REQUIRE CERVICAL CANCER SCREENIN G; RECORDED 06/25/20 12 9:18AM BY CATRINA SAMPSON MA, OFFICE VISIT Olayinka Leon MD [address] [facility] [address], [place], [address] , [facility] 4 13:26:04 Administ ration of bacteria l and viral vaccine Completed 200904/21/2014 RECORDED 05/30/20 10 3:19PM BY ANAT SMITH , OFFICE VISIT Not Available [facility] 4 12:20:05 Administ ration of bacteria l and viral vaccine Completed 200904/22/2014 RECORDED 05/30/20 10 3:19PM BY ANAT SMITH , OFFICE VISIT Not Available [facility] 4 03:36:15 Administ ration of bacteria l and viral vaccine Completed 200903/29/2014 RECORDED 05/30/20 10 3:19PM BY ANAT SMITH , OFFICE VISIT Not Available [facility] 4 13:54:08 Acute bronchit is 43559102 Completed 201104/21/2014 RECORDED 06/25/20 12 9:16AM BY CATRINA SAMPSON MA, ANNOTATI ON/ADDEN DUM Not Available [facility] 4 12:20:04 Screenin g for malignan t neoplasm of breast Completed 201104/21/2014 RECORDED 06/25/20 12 9:16AM BY CATRINA SAMPSON MA, ANNOTATI ON/ADDEN DUM Not Available [facility] 4 12:20:04 Conjunct ivitis 2776260 Completed 201104/21/2014 RECORDED 06/25/20 12 9:16AM BY CATRINA SAMPSON MA, ANNOTATI ON/ADDEN DUM Not Available [facility] 4 12:20:05 Dysphagi a 83505651 Completed 201104/21/2014 RECORDED 06/25/20 12 9:16AM BY CATRINA SAMPSON MA, ANNOTATI ON/ADDEN DUM Not Available [facility] 4 12:20:05 Respirat ory finding Completed 201104/21/2014 RECORDED 06/25/20 12 9:16AM BY CATRINA SAMPSON MA, ANNOTATI ON/ADDEN DUM Not Available [facility] 4 12:20:05 Follow-u p encounte r Completed 201104/21/2014 RECORDED 06/25/20 12 9:16AM BY CATRINA SAMPSON MA, ANNOTATI ON/ADDEN DUM Not Available [facility] 4 12:20:05 Mammogra phy abnormal Completed 201104/21/2014 RECORDED 06/25/20 12 9:16AM BY CATRINA SAMPSON MA, ANNOTATI ON/ADDEN DUM Not Available [facility] 4 12:20:05 Headache disorder 231495113 Completed 201104/21/2014 IMPRESSI ON: UNILATER AL, SEVERE HEADACHE ON THE RIGHT SIDE FOR 2 WEEKS. ASSOCIAT ED WITH RIGHT FACIAL NUMBNESS AND ARM NUMBNESS . R/O ANEURYSM OR MASS.; RECORDED 06/25/20 12 9:16AM BY CATRINA SAMPSON MA, ANNOTATI ON/ADDEN DUM Not Available [facility] 4 12:20:05 Influenz a vaccine needed [id number] 06 Completed 201104/21/2014 RECORDED 06/25/20 12 9:22AM BY CATRINA SAMPSON MA, OFFICE VISIT Not Available [facility] 4 12:20:05 Acute bronchit is 68566889 Completed 201104/22/2014 RECORDED 06/25/20 12 9:16AM BY CATRINA SAMPSON MA, ANNOTATI ON/ADDEN DUM Not Available [facility] 4 03:36:15 Screenin g for malignan t neoplasm of breast Completed 201104/22/2014 RECORDED 06/25/20 12 9:16AM BY CATRINA SAMPSON MA, LORAINEATI ON/ADDEN DUM Not Available [facility] 4 03:36:15 Conjunct ivitis 3082883 Completed 201104/22/2014 RECORDED 06/25/20 12 9:16AM BY CATRINA SAMPSON MA, LORAINEATI ON/ADDEN DUM Not Available [facility] 4 03:36:15 Dysphagi a 00366109 Completed 201104/22/2014 RECORDED 06/25/20 12 9:16AM BY CATRINA SAMPSON MA, ANNOTATI ON/ADDEN DUM Not Available [facility] 4 03:36:15 Respirat ory finding Completed 201104/22/2014 RECORDED 06/25/20 12 9:16AM BY CATRINA SAMPSON MA, ANNOTATI ON/ADDEN DUM Not Available [facility] 4 03:36:15 Follow-u p encounte r Completed 201104/22/2014 RECORDED 06/25/20 12 9:16AM BY CATRINA SAMPSON MA, ANNOTATI ON/ADDEN DUM Not Available [facility] 4 03:36:15 Mammogra phy abnormal Completed 201104/22/2014 RECORDED 06/25/20 12 9:16AM BY CATRINA SAMPSON MA, LORAINEATI ON/ADDEN DUM Not Available [facility] 4 03:36:15 Headache disorder 728097917 Completed 201104/22/2014 IMPRESSI ON: UNILATER AL, SEVERE HEADACHE ON THE RIGHT SIDE FOR 2 WEEKS. ASSOCIAT ED WITH RIGHT FACIAL NUMBNESS AND ARM NUMBNESS . R/O ANEURYSM OR MASS.; RECORDED 06/25/20 12 9:16AM BY CATRINA SAMPSON MA, ANNOTATI ON/ADDEN DUM Not Available [facility] 4 03:36:15 Influenz a vaccine needed [id number] 06 Completed 201104/22/2014 RECORDED 06/25/20 12 9:22AM BY CATRINA SAMPSON MA, OFFICE VISIT Not Available [facility] 4 03:36:15 Acute bronchit is 15729871 Completed 201103/29/2014 RECORDED 06/25/20 12 9:16AM BY CATRINA SAMPSON MA, ANNOTATI ON/ADDEN DUM Not Available [facility] 4 13:54:06 Screenin g for malignan t neoplasm of breast Completed 201103/29/2014 RECORDED 06/25/20 12 9:16AM BY CATRINA SAMPSON MA, ANNOTATI ON/ADDEN DUM Not Available [facility] 4 13:54:06 Conjunct ivitis 0877868 Completed 201103/29/2014 RECORDED 06/25/20 12 9:16AM BY CATRINA SAMPSON MA, ANNOTATI ON/ADDEN DUM Not Available [facility] 4 13:54:07 Dysphagi a 46339839 Completed 201103/29/2014 RECORDED 06/25/20 12 9:16AM BY CATRINA SAMPSON MA, ANNOTATI ON/ADDEN DUM Not Available [facility] 4 13:54:07 Respirat ory finding Completed 201103/29/2014 RECORDED 06/25/20 12 9:16AM BY CATRINA SAMPSON MA, ANNOTATI ON/ADDEN DUM Not Available [facility] 4 13:54:07 Follow-u p encounte r Completed 201103/29/2014 RECORDED 06/25/20 12 9:16AM BY CATRINA SAMPSON MA, ANNOTATI ON/ADDEN DUM Not Available [facility] 4 13:54:07 Mammogra phy abnormal Completed 201103/29/2014 RECORDED 06/25/20 12 9:16AM BY CATRINA SAMPSON MA, ANNOTATI ON/ADDEN DUM Not Available [facility] 4 13:54:07 Headache disorder 909613096 Completed 201103/29/2014 IMPRESSI ON: UNILATER AL, SEVERE HEADACHE ON THE RIGHT SIDE FOR 2 WEEKS. ASSOCIAT ED WITH RIGHT FACIAL NUMBNESS AND ARM NUMBNESS . R/O ANEURYSM OR MASS.; RECORDED 06/25/20 12 9:16AM BY CATRINA SAMPSON MA, ANNOTATI ON/ADDEN DUM Not Available [facility] 4 13:54:08 Influenz a vaccine needed [id number] 06 Completed 201103/29/2014 RECORDED 06/25/20 12 9:22AM BY CATRINA SAMPSON MA, OFFICE VISIT Not Available [facility] 4 13:54:08 Tubercul osis screenin g Completed 201104/21/2014 RECORDED 07/20/20 12 9:20AM BY AMY DANGELO I, HISTORIC AL SUMMARY Not Available [facility] 4 12:20:05 Tubercul osis screenin g Completed 201104/22/2014 RECORDED 07/20/20 12 9:20AM BY AMY DANGELO I, HISTORIC AL SUMMARY Not Available [facility] 4 03:36:15 Tubercul osis screenin g Completed 201103/29/2014 RECORDED 07/20/20 12 9:20AM BY AYM DANGELO I, HISTORIC AL SUMMARY Not Available [facility] 4 13:54:08 Adult health examinat ion Completed 201104/21/2014 RECORDED 07/22/20 12 1:06PM BY CATRINA SAMPSON MA, ANNOTATI ON/ADDEN DUM Not Available [facility] 4 12:20:05 Adult health examinat ion Completed 201104/22/2014 RECORDED 07/22/20 12 1:06PM BY CATRINA SAMPSON MA, ANNOTATI ON/ADDEN DUM Not Available [facility] 4 03:36:15 Adult health examinat ion Completed 201103/29/2014 RECORDED 07/22/20 12 1:06PM BY CATRINA SAMPSON MA, ANNOTATI ON/ADDEN DUM Not Available [facility] 4 13:54:08 Screenin g for malignan t neoplasm of colon Completed 201203/29/2014 RECORDED 01/14/20 13 1:53PM BY NHI GUADALUPE MA, PHONE ENCOUNTE R Not Available [facility] 4 13:54:07 Problem Notes None recorded. Procedures Surgical History Date Name Laterality Status Provider Name and Address Organization Details Recorded Time 0 Hysterectomy completed [facility] 06/08/2014 08:33:37 Appendectomy completed [facility] 06/08/2014 08:33:37 Tubal Ligation completed [facility] 06/08/2014 08:33:37 Imaging Results None recorded. Procedure Notes None recorded. Medical Equipment None Reported. Allergies Allergen ID Allergen Name Allergen Category Reaction Reaction Severity Criticality Documentation Date Start Date Code Code System Note Provider Name and Address Organization Details Recorded Time 1072 Demerol medicatio n Not available Not available Not available 03/29/2014 98112 1 RxNorm Paul Madison [facility] [address] [facility] [address], [place], [address], [facility] 5 18:58:13 1073 Product containin g penicilli n (product) medicatio n Not available Not available Not available 03/29/2014 76443 8001 SNOMED Paul Madison [facility] [address] [facility] [address], [place], [address], [facility] 5 18:58:13 Medications Name Sig [...] 06/18/20 11 9:09AM BY HECTOR TEIXEIRA PA-C, MEDICATI ON AUTO-ALONZO CTIVATIO N; Not Available Not Available Not Available polymyxin B sulfate 10,000 unit-trim ethoprim 1 mg/mL eye drops QID 02/13 completed RECORDED 05/29/20 10 11:27AM BY ZEFERINO MOSS, MEDICATI ON AUTO-ALONZO CTIVATIO N; Not Available [...] Not Available Not Available Vitals Date Recorded Body temperature Body height Body mass index (BMI) Heart rate Oxygen saturation Body weight Systolic And Diastolic Provider Name and Address Organization Details Last Updated DateTime 5 98 [degF] 157.48 cm 22 kg/m2 86 /min 98 % 73256.5 04616 g 110/70 mm[Hg] Annabelle Bynum MA [facility] 5 16:25:33 Date Recorded Oxygen saturation Body weight Body temperature Body height Body mass index (BMI) Heart rate Systolic And Diastolic Provider Name and Address Organization Details Last Updated DateTime 4 97 % 96302.2 6914 g 98 [degF] 157.48 cm 22.3 kg/m2 91 /min 95/60 mm[Hg] Lisset Dimas [facility] 4 10:48:01 Date Recorded Oxygen saturation Body weight Heart rate Body mass index (BMI) Body height Body temperature Systolic And Diastolic Provider Name and Address Organization Details Last Updated DateTime 4 98 % 39057.3 42682 g 90 /min 22.6 kg/m2 157.48 cm 98 [degF] 116/75 mm[Hg] Annabelle Bynum MA [facility] 4 13:19:28 Social History Question Answer Notes LastModified by Organizat ion Details LastModified Time Tobacco Smoking Status Former Smoker when she was 31 she smoked for a month Lisset messina MA - [facility] 06/08/2014 10:48:01 What Is Your Level Of Caffeine Consumption? Heavy Information not available 06/08/2014 What Type Of Diet Are You Following? REGULAR Information not available 06/08/2014 Live Alone Or With Others? With Others Information not available 06/08/2014 How Many Children Do You Have? 2 Information not available 06/08/2014 Sex: Unknown Functional Status Question Answer Note LastModified by Organization D etails LastModified Time What is your level of alcohol consumption? None Information not available 06/08/2014 Are you currently employed? 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 Moderate Information not available 06/08/2014 Mental Status None recorded. Family History Relationship Description Onset Age of this Age Resolved Age Notes LastModified by Organization Details LastModified Time Mother Essential hypertension Not available 08:33:37 Mother Depressive disorder Not available 2013 08:33:37 Mother Coronary arterioscler osis Not available 2013 08:33:37 Mother Rheumatoid arthritis Not available 2013 08:33:37 Mother Malignant neoplasm of cervix uteri Not available 08:33:37 Father Essential hypertension Not available 08:33:37 [...] Diagnosis SNOMED-CT Code Diagnosis ICD10 Code Diagnosis IMO Codes Diagnosis Note [id number] auto[facility]Comm erce [address] [facility] [place], [place] [address] 12/03/2007 00:00:00 53490 autoEComm erce [address] [facility] [place], [place] [address] 03/07/2008 00:00:00 02819 auto[facility]Comm erce [address] [facility] Damiane trey, [place] [address] 02/15/2009 00:00:00 78216 autoEComm erce [address] [facility] [place], [place] [address] 03/10/2009 00:00:00 [id number] autoEComm erce [address] [facility] [place] trey, [place] [address] 08/16/2009 00:00:00 [id number] autoEComm erce [address] [facility] [place], [place] [address] 05/30/2010 00:00:00 05404 autoEComm erce [address] [facility] [place] yang, [place] [address] 06/13/2011 00:00:00 82875 autoEComm erce [address] [facility] [place], [place] [address] 2012 00:00:00 [id number] Olayinka Leon MD Main Office [address] [facility] [address] [place] [address] 06/08/2014 10:35:32 06/08/2014 11:24:00 Adult health examination [id number] [facility] [id number] Screening for malignant neoplasm of colon 132124686 Pain of joint 03812440 [id number] OTONIEL Alex Main Office [address] [facility] [address] [place] [address] 08/09/2014 13:06:35 08/09/2014 16:43:46 Acute pharyngitis 613484230 recommend to monitor and wait, could be early peritonsil lar abscess but unlikely, pt want to tx with abx and have agreed, allergy to pcn [id number] Olayinka eLon MD Main Office [address] [facility] [address] [place] [address] 12/13/2014 16:15:07 12/13/2014 17:27:39 Pain of wrist region [id number] Benign par oxysmal positional vertigo [id number] Poor short -term memory [id number] Strong FMH of memory loss. Now with intermitte nt problems with short term memory Health Concerns Section Related Observation LastModified by Organization Detai ls LastModified Time None Recorded Concern Status LastModified by Organization Details LastModified Time None Recorded Advance Directives Directive None Recorded Payers Insurance Date Sequence Insurance Name Policy Number Policy Cm Covered Member ID Cm Member ID Guarantor Name 05/10/2014 1 [facility] (O) Leif Adler [id number] Sadie Adler 01/20/2018 1 [facility] (O) [id number] Leif Adler [id number] Sadie Adler Notes Date Note Type Note Provider Name and Address Organization Details Recorded Time 4 text/html HeadacheReported by PatientHPIFor location, patient reportstemporal. For quality, patient reportssimilar to previous headaches. For severity, patient reportsmild. For duration, patient reportsintermittent.Note s intermittent headaches. Occasionally limiting her ability to function. Has tried NSAIDs. disrupting sleep.ROS as noted in the HPI Here for PE visit. Longstanding symptoms of pain consistent with fibromyalgia without specific treatment. No functionally limiting. Olayinka Leon MD [address], [address], [facility] [place] 06/12/2014 13:26:20 4 text/html ROS as noted in the HPI Pt complains of left sided sore throat and ear pain, worsening for the past 3 days. It feels like there is something in the back of the throat. No fever, sinus pressure or difficulty swallowing. Olayinka Leon MD [address] [address], [place], [address], [facility] [place] 08/11/2014 08:19:42 5 text/html Musculoskeletal PainReported by PatientHPIFor quality, patient reportsaching. For location, patient reportspain is not radiatingandleft wrist. For severity, patient reportssame. For duration, patient reportspresent for 1-6 months. For timing, patient reportsintermittent. For context, patient reportsunusual activity (started when she was moving her father in bed (she serves as his caregiver)). For associated symptoms, patient reportsno fever,no weak limbs, andno tingling.Has been using a wrist splint without improvement. DizzinessReported by PatientHPIFor severity, patient reportssome effect on daily activities(worse with rapid head movements). For quality, patient reportsspinning. For duration, patient reportsintermittent episodes lasting:andlasts 5-60 minutes. For onset/timing, patient reportsactual date of onset:andmost recent attacks occured 2 days ago(symptoms started 2 weeks ago). For associated symptoms, patient reportsno double vision,no dysphagia,no slurred speech,no blurred vision, andno vision changes. For prior tests, (no prior evaluation).ROS as noted in the HPI Notes concern about memory loss. Has strong FMH of Alzheimer's dementia. Notes difficulty with short term memory loss. Some word-finding probles. Denies difficulty with disorientation, trouble driving, etc. Able to remember appointments. Olayinka Leon MD [address] [address], [place], [id number], [facility] [place] 12/15/2014 14:43:24 OBGyn Episode No OBEpisode recorded.
== END 2025-08-06 08:23 | disposition home or self-care (01) ==
LOC: HO.MAMMO 08:22
PROVIDERS: PCP Internal Medicine; Visit Provider Internal Medicine
DX: Z12.31 Encounter for screening mammogram for malignant neoplasm of breast (principal)
CPT/HCPCS: 77063; 77067

== ENCOUNTER → 2025-08-06 09:00 | Outpatient (BNV) | payer MEDICARE, MEDICAID, SELFPAY | PROVIDERS: PCP Internal Medicine; Visit Provider Radiology Body Imaging | DX: Z12.31 Encounter for screening mammogram for malignant neoplasm of breast (principal) | CPT/HCPCS: 77063; 77067 ==